=== PATIENT | female | born 1970 | race Caucasian/White ===

== ENCOUNTER 2021-07-01 06:41 | Emergency (ER) | payer BC, OTHER ==
[2021-07-01] MEDS ORDERED: Sodium Chloride 0.9% 10 ML Syringe FLUSH PRN (06:53)
[2021-07-01] MEDS ORDERED: Sodium Chloride 0.9% 1,000 ML IV ONE (07:24)
--- NOTE | 2021-07-01 07:42 | EDM.PDOC ---
ED HPI GENERAL MEDICAL PROBLEM - General Chief Complaint: General Stated Complaint: HEART PALPITATIONS Time Seen by Provider: 07/01/21 07:16 Source of Information: Reports: Patient History Limitations: Reports: No Limitations - History of Present Illness INITIAL COMMENTS - FREE TEXT/NARRATIVE: Patient presents with rapid heart rate. She can't describe well what her symptoms are but says it makes her feel tense; she felt this along with sweating from her head about 0500 this morning. She has had 3 episodes of this starting with her first one in February. She was told it was a "flutter", they started her on Eliquis after a PETEY to ruleout clots. She is taking Eliquis since then. She denies any pain in chest, jaw, neck, shoulder, arms. She denies any history of [place]. She takes Losartan qhs and metoprolol 50 mg bid. She did already have the morning dose of metoprolol; and took both last night as directed. Treatments [employer]: Reports: Other Medication(s) - Related Data Allergies Allergy/AdvReac Type Severity Reaction Status Date / Time lisinopril Allergy Cough Verified 07/01/21 06:50 morphine Allergy Nausea and Verified 07/01/21 06:50 Vomiting Home Meds: Home Meds Aspirin [Halfprin] 1 tab PO DAILY 07/03/16 [History] Omeprazole 40 mg PO ACBREAKFAST 07/03/16 [History] metFORMIN [Glucophage XR] 1,000 mg PO BIDMEALS 07/03/16 [History] Acetaminophen 500 mg PO Q6H PRN 07/01/21 [History] Apixaban [Eliquis] 5 mg PO BID 07/01/21 [History] Beta-Carotene(A) w/C & E/Min [Prosight] 1 tab PO DAILY 07/01/21 [History] Cyanocobalamin (Vitamin B12) [Vitamin B13] 500 mcg PO DAILY 07/01/21 [History] Fenofibrate 160 mg PO BEDTIME 07/01/21 [History] Insulin Aspart [NovoLOG] 15 unit SQ TIDMEALS 07/01/21 [History] Losartan Potassium 25 mg PO BEDTIME 07/01/21 [History] Metoprolol Tartrate 50 mg PO BID 07/01/21 [History] Multivitamin [Multiple Vitamins] 1 each PO DAILY 07/01/21 [History] Rosuvastatin Calcium 40 mg PO DAILY 07/01/21 [History] Past Medical History HEENT History: Reports: Impaired Vision Gastrointestinal History: Reports: GERD Genitourinary History: Reports: UTI, Recurrent Musculoskeletal History: Reports: Back Pain, Chronic Neurological History: Reports: Migraines Endocrine/Metabolic History: Reports: Diabetes, Type II - Infectious Disease History Infectious Disease History: Reports: Chicken Pox - Past Surgical History HEENT Surgical History: Reports: Adenoidectomy, Eye Surgery, Oral Surgery, Tons illectomy Female Surgical History: Reports: Other (See Below) ED ROS GENERAL - Review of Systems Review Of Systems: See Below Constitutional: Reports: Fatigue. Denies: Fever, Chills, Malaise, Weakness HEENT: Denies: Ear Pain, Throat Pain, Vision Change Respiratory: Denies: Shortness of Breath, Cough, Hemoptysis Cardiovascular: Denies: Lightheadedness, Syncope GI/Abdominal: Denies: Abdominal Pain, Nausea, Vomiting : Denies: Dysuria, Flank Pain Musculoskeletal: Denies: Neck Pain, Shoulder Pain, Arm Pain, Back Pain, Hand Pain Skin: Reports: Diaphoresis (see HPI). Denies: Cyanosis, Jaundice, Mottled, Pallor Neurological: Denies: Confusion, Dizziness, Headache, Seizure, Syncope, Trouble Speaking, Difficulty Walking Psychiatric: Denies: Agitation, Anxiety, Confusion Hematologic/Lymphatic: Reports: Easy Bleeding (Eliquis) ED EXAM, GENERAL - Physical Exam Exam: See Below Exam Limited By: No Limitations General Appearance: Alert, WD/WN, No Apparent Distress Eye Exam: Bilateral Eye: EOMI, Normal Inspection, PERRL Ears: Normal External Exam, Hearing Grossly Normal Nose: Normal Inspection, No Blood Throat/Mouth: Normal Inspection, Normal Lips, Normal Voice, No Airway Compromise Head: Atraumatic, Normocephalic Neck: Normal Inspection, Full Range of Motion Respiratory/Chest: No Respiratory Distress, Lungs Clear, Normal Breath Sounds Cardiovascular: Normal Peripheral Pulses, No Edema, No Murmur, Tachycardia, Irregularly Irregular GI/Abdominal: Normal Bowel Sounds, Soft, Non-Tender, No Organomegaly, No Distention Back Exam: Normal Inspection, Full Range of Motion. No: CVA Tenderness (L), CVA Tenderness (R) Extremities: Normal Inspection, Normal Range of Motion, Non-Tender, No Pedal Edema Neurological: Alert, Oriented, Normal Cognition, No Motor/Sensory Deficits Psychiatric: Normal Affect, Normal Mood Skin Exam: Warm, Dry, Intact, Normal Color, No Rash #1 Interpretation EKG Date: 07/01/21 Rhythm: A-Fib Rate (Beats/Min): 152 P-Wave: Absent QRS: Normal ST-T: Normal QT: Normal #2 Interpretation EKG Date: 07/01/21 Rhythm: NSR [place]: Normal P-Wave: Present QRS: Normal ST-T: Normal QT: Normal Course - Vital Signs Last Recorded V/S: Last Vital Signs Temp 96.2 F L 07/01/21 06:43 Pulse 90 07/01/21 10:45 Resp 21 H 07/01/21 10:45 BP 95/54 L 07/01/21 10:45 Pulse Ox 96 07/01/21 10:45 - Orders/Labs/Meds Orders: Active Orders 24 hr Category Date Time Status Peripheral IV Care [RC] . DIRECTED Care 07/01/21 06:53 Active Sodium Chloride 0.9% [Saline Flush] Med 07/01/21 06:53 Active 10 ml FLUSH Q8HR PRN Peripheral IV Insertion Adult [OM.PC] Routine Oth 07/01/21 06:53 Ordered EKG 12 Lead [EK] Stat Ther 07/01/21 06:53 Ordered EKG 12 Lead [EK] Stat Ther 07/01/21 08:44 Ordered Medication Orders Sodium Chloride (Sodium Chloride 0.9% 10 Ml Syringe) 10 ml FLUSH Q8HR PRN PRN Reason: keep vein open Labs: Laboratory Tests 07/01/21 07/01/21 07/01/21 Range/Units 07:10 07:10 10:10 WBC 7.78 (5.00-10.00) 10^3/uL RBC 4.95 (3.80-5.50) 10^6/uL Hgb 12.8 (12.0-16.0) g/dL Hct 40.2 (37.0-47.0) % MCV 81.2 L (82.0-92.0) fL MCH 25.9 L (27.0-31.0) pg MCHC 31.8 L (32.0-36.0) g/dL RDW 14.6 H (11.5-14.5) % Plt Count 368 (150-400) 10^3/uL MPV 9.5 (7.4-10.4) fL Immature Gran % (Auto) 0.4 (0.0-5.0) % Neut % (Auto) 74.3 H (50.0-70.0) % Lymph % (Auto) 18.1 L (20.0-40.0) % [place] % (Auto) 6.6 (2.0-8.0) % Eos % (Auto) 0.3 L (1.0-3.0) % Baso % (Auto) 0.3 (0.0-1.0) % Neut # (Auto) 5.79 (2.50-7.00) 10^3/uL Lymph # (Auto) 1.41 (1.00-4.00) 10^3/uL [place] # (Auto) 0.51 (0.10-0.80) 10^3/uL Eos # (Auto) 0.02 L (0.10-0.30) 10^3/uL Baso # (Auto) 0.02 (0.00-0.10) 10^3/uL Immature Gran # (Auto) 0.03 (0.00-0.50) 10^3/uL Sodium 139 (136-145) mmol/L Potassium 3.9 (3.5-5.1) mmol/L Chloride 103 (98-107) mmol/L Carbon Dioxide 20.8 L (21.0-32.0) mmol/L Anion Gap 19.1 H (5-15) mmol/L BUN 19 H (7-18) mg/dL Creatinine 0.47 L (0.51-1.17) mg/dL Est Cr Clr Drug Dosing 119.71 mL/min Estimated GFR (MDRD) > 60 mL/min Glucose 236 H (70-140) mg/dL Calcium 8.5 L (8.7-10.3) mg/dL Total Bilirubin 0.4 (0.2-1.0) mg/dL AST 12 L (15-37) U/L ALT 25 (14-63) U/L Alkaline Phosphatase 43 L (46-116) U/L Troponin I High Sens 30.600 36.600 (0-51.000) pg/mL Total Protein 7.3 (6.4-8.2) g/dL Albumin 3.95 (3.40-5.00) g/dL Meds: Medications Generic Name Dose Route Start Last Admin Trade Name Freq PRN Reason Stop Dose Admin Sodium Chloride 10 ml 07/01/21 06:53 Sodium Chloride 0.9% 10 Ml Syringe FLUSH Q8HR PRN keep vein open Discontinued Medications Generic Name Dose Route Start Last Admin Trade Name Freq PRN Reason Stop Dose Admin Diltiazem HCl 5 mg 07/01/21 08:08 07/01/21 08:23 Diltiazem 25 Mg/5 Ml Sdv IVPUSH 07/01/21 08:09 5 mg ONETIME ONE Administration Sodium Chloride 1,000 mls @ 999 mls/hr 07/01/21 07:24 07/01/21 07:30 Normal Saline IV 07/01/21 08:24 999 mls/hr .BOLUS ONE Administration - Re-Assessments/Exams Free Text/Narrative Re-Assessment/Exam: 07/01/21 08:10 Labs okay. Troponin is 30 which could be on its way up. With BP 82/59 we've been giving IV fluids. She is already on metoprolol so will try a low dose of diltiazem for rate control now. 07/01/21 08:34 Diltiazem 5 mg IVP slowed rate down to 90 from 150's. Blood pressure actually improved to 96/51. Patient feels better too. 07/01/21 08:58 I discussed case with her PCP, Dr. Muro at [facility]. She hasn't seen her since March 2020, before these A Fib/RVR episodes began so recommends following with her cardiology recommendations since she has been seen by them more recently. I discussed findings and recommendations with patient. Cardiology has been suspicious that sleep apnea may be causing these episodes and have her scheduled for a sleep apnea study in August. Patient will call them to see if they can move that up or have any other recommendations for her. Today will monitor and recheck trop before discharge. 07/01/21 11:05 It looks like there is the option of doing a sleep study here in [place] so she will look into getting it done NASIR. Second troponin is 36, basically unchanged. Patient is stable and feeling well. Discharged to home in stable condition. Departure - Departure Time of Disposition: 11:02 Disposition: Home, Self-Care 01 Condition: Good Clinical Impression: Paroxysmal atrial fibrillation with rapid ventricular response - Discharge Information Instructions: Atrial Fibrillation, Kldy-js-Auwl Referrals: Jayde Beltrán MD [Primary Care Provider] - Forms: ED Department Discharge Additional Instructions: Drink 8 cups of water daily. Continue your medications as directed. Call your bottle machine operator to discuss this episode and possibility of doing sleep study sooner here in [place]. Follow up with cardiology as they advise. Return to ER as needed. Sepsis Event Note (ED) - Evaluation Sepsis Screening Result: No Definite Risk - Focused Exam Vital Signs: Vital Signs Temp Pulse Resp BP Pulse Ox 07/01/21 10:45 90 21 H 95/54 L 96 07/01/21 10:30 92 25 H 99/56 L 96 07/01/21 10:15 95 16 106/62 96 07/01/21 10:00 90 21 H 99/51 L 96 07/01/21 09:45 92 22 H 101/53 L 95 07/01/21 09:30 91 24 H 95/56 L 96 07/01/21 09:15 92 25 H 101/55 L 96 07/01/21 09:00 91 22 H 91/48 L 95 07/01/21 08:45 89 16 93/53 L 98 07/01/21 08:30 90 20 96/51 L 97 07/01/21 08:28 91 17 95/56 L 98 07/01/21 08:15 134 H 21 H 83/50 L 98 07/01/21 08:00 142 H 13 82/59 L 98 07/01/21 07:45 149 H 24 H 87/52 L 98 07/01/21 07:30 155 H 17 98/70 97 07/01/21 07:15 160 H 21 H 83/63 L 97 07/01/21 07:00 173 H 17 110/58 L 98 07/01/21 06:48 163 H 24 H 90/58 L 99 07/01/21 06:46 156 H 20 78/51 L 99 07/01/21 06:43 96.2 F L 168 H 16 107/56 L 99 - My Orders Last 24 Hours: My Active Orders 07/01/21 06:53 Peripheral IV Care [RC] . DIRECTED Sodium Chloride 0.9% [Saline Flush] 10 ml FLUSH Q8HR PRN Peripheral IV Insertion Adult [OM.PC] Routine EKG 12 Lead [EK] Stat 07/01/21 08:44 EKG 12 Lead [EK] Stat - Assessment/Plan Last 24 Hours: My Active Orders 07/01/21 06:53 Peripheral IV Care [RC] . DIRECTED Sodium Chloride 0.9% [Saline Flush] 10 ml FLUSH Q8HR PRN Peripheral IV Insertion Adult [OM.PC] Routine EKG 12 Lead [EK] Stat 07/01/21 08:44 EKG 12 Lead [EK] Stat
[2021-07-01 07:50] LABS: ANION GAP 19.1 mmol/L (5-15); CHLORIDE,CL 103 mmol/L (98-107); SODIUM,NA 139 mmol/L (136-145)
[2021-07-01] MEDS ORDERED: Diltiazem 25 MG/5 ML SDV IVPUSH ONE (08:08)
[2021-07-01 10:50] VITALS: BP 95/54; PULSE 90
== END 2021-07-01 11:05 | disposition home or self-care (01) ==
LOC: KA.ED 06:41
DX: I48.0 Paroxysmal atrial fibrillation (principal); K21.9 Gastro-esophageal reflux disease without esophagitis; E11.9 Type 2 diabetes mellitus without complications; Z88.5 Allergy status to narcotic agent; Z79.899 Other long term (current) drug therapy; Z79.4 Long term (current) use of insulin; Z79.82 Long term (current) use of aspirin; Z88.8 Allergy status to other drugs, medicaments and biological substances
CPT/HCPCS: 36415; 80053; 84484; 85025; 93005; 96374; 99285; J3490; J7030; 99284

== ENCOUNTER 2021-08-18 15:31 | Inpatient (IN) | payer BC ==
[2021-08-18] MEDS ORDERED: Sodium Chloride 0.9% 10 ML Syringe FLUSH PRN ×2 (15:45→17:42)
[2021-08-18] MEDS ORDERED: Diltiazem 25 MG/5 ML SDV IVPUSH ONE (15:51)
--- NOTE | 2021-08-18 15:58 | EDM.PDOC ---
ED HPI GENERAL MEDICAL PROBLEM - General Chief Complaint: Cardiovascular Problem Stated Complaint: RAPID HEART RATE Time Seen by Provider: 08/18/21 15:40 Source of Information: Reports: Patient History Limitations: Reports: No Limitations - History of Present Illness INITIAL COMMENTS - FREE TEXT/NARRATIVE: 50 YO WF PRESENTS TO ER COMPLAINING OF RAPID HEART RATE WITH DIZZINESS AND DIAPHORESIS WHICH STARTED AFTER WAKING FROM HER NAP THIS AFTERNOON. PT REPORTS HISTORY OF PAROXYSMAL ATRIAL FIBRILLATION AND STATES SHE HAS BEEN SEEN BY CARIOLOGY WHO IS WORKING HER UP FOR SLEEP APNEA AT THIS TIME. PT TAKE METOPROLOL 50MG BID AND STATES SHE HAS BEEN COMPLIANT WITH HER HOME MEDICATIONS. Onset: Sudden Location: Reports: Chest Severity: Moderate Improves with: Reports: None Worsens with: Reports: None Associated Symptoms: Reports: Chest Pain, Diaphoresis, Shortness of Breath - Related Data Allergies Allergy/AdvReac Type Severity Reaction Status Date / Time lisinopril Allergy Cough Verified 07/01/21 06:50 morphine Allergy Nausea and Verified 07/01/21 06:50 Vomiting Home Meds: Home Meds RX: Aspirin [Halfprin] 1 tab PO DAILY 07/03/16 [History] RX: Omeprazole 40 mg PO ACBREAKFAST 07/03/16 [History] metFORMIN [Glucophage XR] 1,000 mg PO BIDMEALS 07/03/16 [History] Apixaban [Eliquis] 5 mg PO BID 07/01/21 [History] Beta-Carotene(A) w/C & E/Min [Prosight] 1 tab PO DAILY 07/01/21 [History] Cyanocobalamin (Vitamin B12) [Vitamin B13] 500 mcg PO DAILY 07/01/21 [History] Insulin Aspart [NovoLOG] 15 unit SQ TIDMEALS 07/01/21 [History] Multivitamin [Multiple Vitamins] 1 each PO DAILY 07/01/21 [History] RX: Acetaminophen 500 mg PO Q6H PRN 07/01/21 [History] RX: Fenofibrate 160 mg PO BEDTIME 07/01/21 [History] RX: Losartan Potassium 25 mg PO BEDTIME 07/01/21 [History] RX: Metoprolol Tartrate 50 mg PO BID 07/01/21 [History] RX: Rosuvastatin Calcium 40 mg PO DAILY 07/01/21 [History] Insulin Glargine,Hum.Rec.Anlog [Basaglar Kwikpen U-100] 45 unit SQ BEDTIME 08/18/21 [History] Past Medical History HEENT History: Reports: Impaired Vision Cardiovascular History: Reports: Afib, High Cholesterol, Hypertension Respiratory History: Reports: None Gastrointestinal History: Reports: GERD, Pancreatitis Genitourinary History: Reports: Urinary Incontinence, UTI, Recurrent Musculoskeletal History: Reports: Back Pain, Chronic, Fracture Neurological History: Reports: Migraines Endocrine/Metabolic History: Reports: Diabetes, Type II, Obesity/BMI 30+ Hematologic History: Reports: Anemia, Blood Transfusion(s) Immunologic History: Reports: None Oncologic (Cancer) History: Reports: None Dermatologic History: Reports: None - Infectious Disease History Infectious Disease History: Reports: Chicken Pox - Past Surgical History HEENT Surgical History: Reports: Adenoidectomy, Eye Surgery, Oral Surgery, Tonsillectomy Female Surgical History: Reports: Other (See Below) Social & Family History - Family History Family Medical History: No Pertinent Family History - Caffeine Use Caffeine Use: Reports: Soda, Tea ED ROS GENERAL - Review of Systems Review Of Systems: See Below Constitutional: Reports: No Symptoms HEENT: Reports: No Symptoms Respiratory: Reports: Shortness of Breath Cardiovascular: Reports: Lightheadedness, Palpitations Endocrine: Reports: No Symptoms GI/Abdominal: Reports: No Symptoms : Reports: No Symptoms Musculoskeletal: Reports: No Symptoms Skin: Reports: No Symptoms Neurological: Reports: No Symptoms Psychiatric: Reports: No Symptoms Hematologic/Lymphatic: Reports: No Symptoms Immunologic: Reports: No Symptoms ED EXAM, GENERAL - Physical Exam Exam: See Below Exam Limited By: No Limitations General Appearance: Alert, WD/WN, No Apparent Distress Eye Exam: Bilateral Eye: PERRL Head: Atraumatic, Normocephalic Neck: Normal Inspection, Supple, Non-Tender, Full Range of Motion Respiratory/Chest: No Respiratory Distress, Lungs Clear, Normal Breath Sounds, No Accessory Muscle Use, Chest Non-Tender Cardiovascular: Normal Peripheral Pulses, No Edema, No Gallop, No JVD, No Rub, Tachycardia, Irregularly Irregular GI/Abdominal: Normal Bowel Sounds, Soft, Non-Tender, No Organomegaly, No Distention, No Abnormal Bruit, No Mass Back Exam: Normal Inspection, Full Range of Motion, NT Extremities: Normal Inspection, Normal Range of Motion, Non-Tender, Normal Capillary Refill, No Pedal Edema Neurological: Alert, Oriented, CN II-XII Intact, Normal Cognition, Normal Gait, Normal Reflexes, No Motor/Sensory Deficits Psychiatric: Normal Affect, Normal Mood Skin Exam: Warm, Dry, Intact, Normal Color, No Rash Lymphatic: No Adenopathy #1 Interpretation EKG Date: 08/18/21 Time: 15:39 Rhythm: A-Fib Rate (Beats/Min): 157 [place]: Normal P-Wave: Absent QRS: Normal ST-T: Normal QT: Normal Course - Vital Signs Last Recorded V/S: Last Vital Signs Temp 96.5 F L 08/18/21 15:40 Pulse 144 H 08/18/21 17:25 Resp 24 H 08/18/21 17:25 BP 122/70 08/18/21 17:25 Pulse Ox 96 08/18/21 17:25 - Orders/Labs/Meds Orders: Active Orders 24 hr Category Date Time Status Patient Status Manage Transfer [TRANSFER] Routine ADT 08/18/21 17:40 Active Patient Status [ADT] Routine ADT 08/18/21 17:42 Active Accu Check [Blood Glucose Check, Bedside] [RC] Care 08/18/21 17:46 Active WITHMEALSANDBED Cardiac Monitoring [RC] . DIRECTED Care 08/18/21 15:47 Active Cardiac Monitoring [RC] CONTINUOUS Care 08/18/21 17:43 Active EKG Documentation Completion [RC] ASDIRECTED Care 08/18/21 15:59 Active Oxygen Therapy [RC] PRN Care 08/18/21 17:42 Active Peripheral IV Care [RC] . DIRECTED Care 08/18/21 15:46 Active Peripheral IV Care [RC] . DIRECTED Care 08/18/21 17:45 Active Up With Assistance [RC] ASDIRECTED Care 08/18/21 17:42 Active VTE/DVT Education [RC] PER UNIT ROUTINE Care 08/18/21 17:42 Active Vital Signs [RC] Q4H Care 08/18/21 17:42 Active Heart Healthy Diet [DIET] Diet 08/18/21 Dinner Active BASIC METABOLIC PANEL,BMP [CHEM] AM Lab 08/19/21 05:11 Ordered CBC WITH AUTO DIFF [HEME] AM Lab 08/19/21 05:11 Ordered CORONAVIRUS COVID-19 RAPID [MOLEC] Stat Lab 08/18/21 17:39 Ordered MAGNESIUM [CHEM] AM Lab 08/19/21 05:11 Ordered Apixaban [Eliquis] Med 08/18/21 21:00 Active 5 mg PO BID Aspirin [Halfprin] Med 08/19/21 09:00 Active 81 mg PO DAILY Beta-Carotene(A) w/C & E/Min [Prosight] Med 08/19/21 09:00 Active 1 tab PO DAILY Cyanocobalamin (Vitamin B12) [Vitamin B12] Med 08/19/21 09:00 Active 500 mcg PO DAILY Dextrose 50% in Water Med 08/18/21 17:47 Active 50 ml IVPUSH ASDIRECTED PRN Diltiazem 125 mg Med 08/18/21 16:15 Active Sodium Chloride 0.9% [Normal Saline] 100 ml IV TITRATE Fenofibrate [Fenofibrate] Med 08/18/21 21:00 Active 160 mg PO BEDTIME Glucagon,Human Recombinant [GlucaGen] Med 08/18/21 17:47 Active 1 mg IM ASDIRECTED PRN Insulin Aspart [NovoLOG] Med 08/18/21 18:00 Active 15 unit SUBCUT TIDMEALS Insulin Glargine,Hum.Rec.Anlog [Semglee Pen] Med 08/18/21 21:00 Ordered 45 unit SUBCUT BEDTIME Multivitamin [Multiple Vitamins] Med 08/19/21 09:00 Active 1 each PO DAILY Omeprazole [Omeprazole] Med 08/19/21 07:30 Active 40 mg PO ACBREAKFAST Rosuvastatin Calcium [Rosuvastatin Calcium] Med 08/19/21 09:00 Active 40 mg PO DAILY Sodium Chloride 0.9% [Normal Saline] 1,000 ml Med 08/18/21 17:45 Active IV ASDIRECTED Sodium Chloride 0.9% [Saline Flush] Med 08/18/21 15:45 Active 10 ml FLUSH Q8HR PRN Sodium Chloride 0.9% [Saline Flush] Med 08/18/21 17:42 Active 10 ml FLUSH Q8HR PRN metFORMIN [Glucophage XR] Med 08/18/21 18:00 Active 1,000 mg PO BIDMEALS Peripheral IV Insertion Adult [OM.PC] Routine Oth 08/18/21 15:45 Ordered Peripheral IV Insertion Adult [OM.PC] Routine Oth 08/18/21 17:42 Ordered Resuscitation Status Routine Resus Stat 08/18/21 17:42 Ordered EKG 12 Lead [EK] Stat Ther 08/18/21 15:45 Ordered EKG 12 Lead [EK] Stat Ther 08/18/21 15:59 Ordered Medication Orders Apixaban (Apixaban 5 Mg Tab) 5 mg PO BID [facility] Aspirin (Aspirin 81 Mg Tab.Ec) 81 mg PO DAILY [facility] Cyanocobalamin (Cyanocobalamin (Vitamin B12) 500 Mcg Tab) 500 mcg PO DAILY [facility] Dextrose/Water (50% Dextrose In Water 50 Ml Syringe) 50 ml IVPUSH ASDIRECTED PRN PRN Reason: Hypoglycemia Glucagon (Glucagon,Human Recombinant 1 Mg Vial) 1 mg IM ASDIRECTED PRN PRN Reason: Hypoglycemia Diltiazem HCl 125 mg/ Sodium (Chloride) 125 mls @ 15 mls/hr IV TITRATE [facility] Last Admin: 08/18/21 16:25 Dose: 15 mg/hr, 15 mls/hr Documented by: ANIBAL Sodium Chloride (Normal Saline) 1,000 mls @ 125 mls/hr IV ASDIRECTED [facility] Insulin Aspart (Insulin Aspart 100 Units/Ml 3 Ml Pen) 15 unit SUBCUT TIDMEALS [facility] Insulin Glargine (Insulin Glargine,Hum.Rec.Anlog 100 Unit/Ml 3 Ml Pen) 45 unit SUBCUT BEDTIME [facility] Metformin HCl (Metformin 500 Mg Tab.Er) 1,000 mg PO BIDMEALS [facility] Non-Formulary Medication (Beta-Carotene(A) W/C & E/Min [Prosight]) 1 tab PO DAILY [facility] Non-Formulary Medication (Fenofibrate [Fenofibrate]) 160 mg PO BEDTIME [facility] Non-Formulary Medication (Multivitamin [Multiple Vitamins]) 1 each PO DAILY [facility] Non-Formulary Medication (Omeprazole [Omeprazole]) 40 mg PO ACBREAKFAST [facility] Non-Formulary Medication (Rosuvastatin Calcium [Rosuvastatin Calcium]) 40 mg PO DAILY [facility] Sodium Chloride (Sodium Chloride 0.9% 10 Ml Syringe) 10 ml FLUSH Q8HR PRN PRN Reason: keep vein open Sodium Chloride (Sodium Chloride 0.9% 10 Ml Syringe) 10 ml FLUSH Q8HR PRN PRN Reason: keep vein open Labs: Laboratory Tests 08/18/21 08/18/21 Range/Units 15:50 15:50 WBC 6.61 (5.00-10.00) 10^3/uL RBC 5.08 (3.80-5.50) 10^6/uL Hgb 12.6 (12.0-16.0) g/dL Hct 39.9 (37.0-47.0) % MCV 78.5 L (82.0-92.0) fL MCH 24.8 L (27.0-31.0) pg MCHC 31.6 L (32.0-36.0) g/dL RDW 15.3 H (11.5-14.5) % Plt Count 331 (150-400) 10^3/uL MPV 9.4 (7.4-10.4) fL Immature Gran % (Auto) 0.2 (0.0-5.0) % Neut % (Auto) 64.9 (50.0-70.0) % Lymph % (Auto) 26.2 (20.0-40.0) % [place] % (Auto) 7.6 (2.0-8.0) % Eos % (Auto) 0.6 L (1.0-3.0) % Baso % (Auto) 0.5 (0.0-1.0) % Neut # (Auto) 4.30 (2.50-7.00) 10^3/uL Lymph # (Auto) 1.73 (1.00-4.00) 10^3/uL [place] # (Auto) 0.50 (0.10-0.80) 10^3/uL Eos # (Auto) 0.04 L (0.10-0.30) 10^3/uL Baso # (Auto) 0.03 (0.00-0.10) 10^3/uL Immature Gran # (Auto) 0.01 (0.00-0.50) 10^3/uL Sodium 141 (136-145) mmol/L Potassium 4.4 (3.5-5.1) mmol/L Chloride 102 (98-107) mmol/L Carbon Dioxide 23.5 (21.0-32.0) mmol/L Anion Gap 19.9 H (5-15) mmol/L BUN 17 (7-18) mg/dL Creatinine 0.46 L (0.51-1.17) mg/dL Est Cr Clr Drug Dosing 122.31 mL/min Estimated GFR (MDRD) > 60 mL/min Glucose 208 H (70-140) mg/dL Calcium 10.3 D (8.7-10.3) mg/dL Total Bilirubin 0.3 (0.2-1.0) mg/dL AST 18 (15-37) U/L ALT 29 (14-63) U/L Alkaline Phosphatase 50 (46-116) U/L Troponin I High Sens 14.300 (0-51.000) pg/mL B-Natriuretic Peptide 92 (0-100) pg/mL Total Protein 8.1 (6.4-8.2) g/dL Albumin 4.26 (3.40-5.00) g/dL Meds: Medications Generic Name Dose Route Start Last Admin Trade Name Freq PRN Reason Stop Dose Admin Apixaban 5 mg 08/18/21 21:00 Apixaban 5 Mg Tab PO BID [facility] Aspirin 81 mg 08/19/21 09:00 Aspirin 81 Mg Tab.Ec PO DAILY [facility] Cyanocobalamin 500 mcg 08/19/21 09:00 Cyanocobalamin (Vitamin B12) 500 Mcg Tab PO DAILY [facility] Dextrose/Water 50 ml 08/18/21 17:47 50% Dextrose In Water 50 Ml Syringe IVPUSH ASDIRECTED PRN Hypoglycemia Glucagon 1 mg 08/18/21 17:47 Glucagon,Human Recombinant 1 Mg Vial IM ASDIRECTED PRN Hypoglycemia Diltiazem HCl 125 mg/ Sodium 125 mls @ 15 mls/hr 08/18/21 16:15 08/18/21 16:25 Chloride IV 15 mg/hr TITRATE [facility] 15 mls/hr Administration 15 MG/HR Sodium Chloride 1,000 mls @ 125 mls/hr 08/18/21 17:45 Normal Saline IV ASDIRECTED [facility] Insulin Aspart 15 unit 08/18/21 18:00 Insulin Aspart 100 Units/Ml 3 Ml Pen SUBCUT TIDMEALS [facility] Insulin Glargine 45 unit 08/18/21 21:00 Insulin Glargine,Hum.Rec.Anlog 100 Unit/Ml 3 Ml Pen SUBCUT BEDTIME [facility] Metformin HCl 1,000 mg 08/18/21 18:00 Metformin 500 Mg Tab.Er PO BIDMEALS [facility] Non-Formulary Medication 1 tab 08/19/21 09:00 Beta-Carotene(A) W/C & E/Min [Prosight] PO DAILY [facility] Non-Formulary Medication 160 mg 08/18/21 21:00 Fenofibrate [Fenofibrate] PO BEDTIME [facility] Non-Formulary Medication 1 each 08/19/21 09:00 Multivitamin [Multiple Vitamins] PO DAILY [facility] Non-Formulary Medication 40 mg 08/19/21 07:30 Omeprazole [Omeprazole] PO ACBREAKFAST [facility] Non-Formulary Medication 40 mg 08/19/21 09:00 Rosuvastatin Calcium [Rosuvastatin Calcium] PO DAILY [facility] Sodium Chloride 10 ml 08/18/21 15:45 Sodium Chloride 0.9% 10 Ml Syringe FLUSH Q8HR PRN keep vein open Sodium Chloride 10 ml 08/18/21 17:42 Sodium Chloride 0.9% 10 Ml Syringe FLUSH Q8HR PRN keep vein open Discontinued Medications Generic Name Dose Route Start Last Admin Trade Name Freq PRN Reason Stop Dose Admin Diltiazem HCl 15 mg 08/18/21 15:51 08/18/21 16:00 Diltiazem 25 Mg/5 Ml Sdv IVPUSH 08/18/21 15:52 15 mg ONETIME ONE Administration Sodium Chloride Confirm 08/18/21 16:21 08/18/21 17:29 Normal Saline Administered 08/18/21 16:22 Not Given Dose 100 mls @ as directed .ROUTE .STK-MED ONE Sodium Chloride 1,000 mls @ 999 mls/hr 08/18/21 16:51 08/18/21 17:02 Normal Saline IV 08/18/21 17:51 999 mls/hr .BOLUS ONE Administration Lorazepam 1 mg 08/18/21 16:33 08/18/21 16:41 Lorazepam 2 Mg/Ml Sdv IVPUSH 08/18/21 16:34 1 mg ONETIME ONE Administration - Radiology Interpretation Free Text/Narrative:: CXR- NO ACUTE PROCESS - Re-Assessments/Exams Free Text/Narrative Re-Assessment/Exam: 08/18/21 17:37 PT REPORTS FELLING BETTER- NO DIAPHORESIS, NO SHORTNESS OF BREATH. PT WILL BE ADMITTED FOR RATE CONTROL AND SUPPORTIVE CARE Departure - Departure Time of Disposition: 17:37 Disposition: Admitted As Inpatient 65 Condition: Fair Clinical Impression: Atrial fibrillation with rapid ventricular response Referrals: Jayde Beltrán MD [Primary Care Provider] - Forms: ED Department Discharge Sepsis Event Note (ED) - Focused Exam Vital Signs: Vital Signs Temp Pulse Resp BP Pulse Ox 08/18/21 17:25 144 H 24 H 122/70 96 08/18/21 17:00 150 H 21 H 106/70 97 08/18/21 16:45 154 H 19 98/76 96 08/18/21 16:30 155 H 20 117/45 L 96 08/18/21 16:15 139 H 18 122/87 96 08/18/21 16:05 112 H 20 113/68 97 08/18/21 16:00 169 H 13 159/82 H 97 08/18/21 15:45 171 H 22 H 162/77 H 96 08/18/21 15:40 96.5 F L 164 H 20 141/72 H 97 - My Orders Last 24 Hours: My Active Orders 08/18/21 15:45 Sodium Chloride 0.9% [Saline Flush] 10 ml FLUSH Q8HR PRN Peripheral IV Insertion Adult [OM.PC] Routine EKG 12 Lead [EK] Stat 08/18/21 15:46 Peripheral IV Care [RC] . DIRECTED 08/18/21 15:47 Cardiac Monitoring [RC] . DIRECTED 08/18/21 15:59 EKG Documentation Completion [RC] ASDIRECTED EKG 12 Lead [EK] Stat 08/18/21 16:15 Diltiazem 125 mg Sodium Chloride 0.9% [Normal Saline] 100 ml IV TITRATE 08/18/21 17:39 CORONAVIRUS COVID-19 RAPID [MOLEC] Stat 08/18/21 17:40 Patient Status Manage Transfer [TRANSFER] Routine 08/18/21 17:42 Patient Status [ADT] Routine Oxygen Therapy [RC] PRN Up With Assistance [RC] ASDIRECTED VTE/DVT Education [RC] PER UNIT ROUTINE Vital Signs [RC] Q4H Sodium Chloride 0.9% [Saline Flush] 10 ml FLUSH Q8HR PRN Peripheral IV Insertion Adult [OM.PC] Routine Resuscitation Status Routine 08/18/21 17:43 Cardiac Monitoring [RC] CONTINUOUS 08/18/21 17:45 Peripheral IV Care [RC] . DIRECTED Sodium Chloride 0.9% [Normal Saline] 1,000 ml IV ASDIRECTED 08/18/21 17:46 Accu Check [Blood Glucose Check, Bedside] [RC] WITHMEALSANDBED 08/18/21 17:47 Dextrose 50% in Water 50 ml IVPUSH ASDIRECTED PRN Glucagon,Human Recombinant [GlucaGen] 1 mg IM ASDIRECTED PRN 08/18/21 Dinner Heart Healthy Diet [DIET] Insulin Aspart [NovoLOG] 15 unit SUBCUT TIDMEALS metFORMIN [Glucophage XR] 1,000 mg PO BIDMEALS 08/18/21 21:00 Apixaban [Eliquis] 5 mg PO BID Fenofibrate [Fenofibrate] 160 mg PO BEDTIME Insulin Glargine,Hum.Rec.Anlog [Semglee Pen] 45 unit SUBCUT BEDTIME 08/19/21 05:11 BASIC METABOLIC PANEL,BMP [CHEM] AM CBC WITH AUTO DIFF [HEME] AM MAGNESIUM [CHEM] AM 08/19/21 07:30 Omeprazole [Omeprazole] 40 mg PO ACBREAKFAST 08/19/21 09:00 Aspirin [Halfprin] 81 mg PO DAILY Beta-Carotene(A) w/C & E/Min [Prosight] 1 tab PO DAILY Cyanocobalamin (Vitamin B12) [Vitamin B12] 500 mcg PO DAILY Multivitamin [Multiple Vitamins] 1 each PO DAILY Rosuvastatin Calcium [Rosuvastatin Calcium] 40 mg PO DAILY - Assessment/Plan Last 24 Hours: My Active Orders 08/18/21 15:45 Sodium Chloride 0.9% [Saline Flush] 10 ml FLUSH Q8HR PRN Peripheral IV Insertion Adult [OM.PC] Routine EKG 12 Lead [EK] Stat 08/18/21 15:46 Peripheral IV Care [RC] . DIRECTED 08/18/21 15:47 Cardiac Monitoring [RC] . DIRECTED 08/18/21 15:59 EKG Documentation Completion [RC] ASDIRECTED EKG 12 Lead [EK] Stat 08/18/21 16:15 Diltiazem 125 mg Sodium Chloride 0.9% [Normal Saline] 100 ml IV TITRATE 08/18/21 17:39 CORONAVIRUS COVID-19 RAPID [MOLEC] Stat 08/18/21 17:40 Patient Status Manage Transfer [TRANSFER] Routine 08/18/21 17:42 Patient Status [ADT] Routine Oxygen Therapy [RC] PRN Up With Assistance [RC] ASDIRECTED VTE/DVT Education [RC] PER UNIT ROUTINE Vital Signs [RC] Q4H Sodium Chloride 0.9% [Saline Flush] 10 ml FLUSH Q8HR PRN Peripheral IV Insertion Adult [OM.PC] Routine Resuscitation Status Routine 08/18/21 17:43 Cardiac Monitoring [RC] CONTINUOUS 08/18/21 17:45 Peripheral IV Care [RC] . DIRECTED Sodium Chloride 0.9% [Normal Saline] 1,000 ml IV ASDIRECTED 08/18/21 17:46 Accu Check [Blood Glucose Check, Bedside] [RC] WITHMEALSANDBED 08/18/21 17:47 Dextrose 50% in Water 50 ml IVPUSH ASDIRECTED PRN Glucagon,Human Recombinant [GlucaGen] 1 mg IM ASDIRECTED PRN 08/18/21 Dinner Heart Healthy Diet [DIET] Insulin Aspart [NovoLOG] 15 unit SUBCUT TIDMEALS metFORMIN [Glucophage XR] 1,000 mg PO BIDMEALS 08/18/21 21:00 Apixaban [Eliquis] 5 mg PO BID Fenofibrate [Fenofibrate] 160 mg PO BEDTIME Insulin Glargine,Hum.Rec.Anlog [Semglee Pen] 45 unit SUBCUT BEDTIME 08/19/21 05:11 BASIC METABOLIC PANEL,BMP [CHEM] AM CBC WITH AUTO DIFF [HEME] AM MAGNESIUM [CHEM] AM 08/19/21 07:30 Omeprazole [Omeprazole] 40 mg PO ACBREAKFAST 08/19/21 09:00 Aspirin [Halfprin] 81 mg PO DAILY Beta-Carotene(A) w/C & E/Min [Prosight] 1 tab PO DAILY Cyanocobalamin (Vitamin B12) [Vitamin B12] 500 mcg PO DAILY Multivitamin [Multiple Vitamins] 1 each PO DAILY Rosuvastatin Calcium [Rosuvastatin Calcium] 40 mg PO DAILY Assessment:: 1. ATRIAL FIBRILLATION WITH RVR- IMPROVED Plan: 1. ADMIT TO MEDICINE- DISCUSSED CASE WITH JAYDE ZACARIAS/RYAN GONZALEZ- WILL ADMIT FOR RATE CONTROL 2. CONTINUE CARDIZEM 15MG/HR GTT 3. NS @150CC/HR 4. REPEAT LABS IN AM 5. SUPPORTIVE CARE
--- NOTE | 2021-08-18 16:11 | CR ---
[id number] RAD/RAD Chest PA or AP 1V EXAM: RAD Chest PA or AP 1V INDICATION: PALPITATIONS. COMPARISON: None. DISCUSSION: Cardiomediastinal silhouette is normal in size and contour. No infiltrate, effusion, pneumothorax, or edema. IMPRESSION: No acute cardiopulmonary abnormality. Zain Villalobos DO 08/18/21 [id number] Thank you for allowing us to participate in the care of your patient.
[2021-08-18] MEDS ORDERED: Diltiazem 125 MG in Sodium Chloride 0.9% 100 ML IV SCH ×2 (16:15→19:30)
[2021-08-18] MEDS ORDERED: Sodium Chloride 0.9% 100 ML ONE (16:21)
[2021-08-18 16:23] LABS: ANION GAP 19.9 mmol/L (5-15); CHLORIDE,CL 102 mmol/L (98-107); SODIUM,NA 141 mmol/L (136-145)
[2021-08-18] MEDS ORDERED: LORazepam 2 MG/ML SDV IVPUSH ONE (16:33)
[2021-08-18] MEDS ORDERED: Sodium Chloride 0.9% 1,000 ML IV ONE (16:51)
[2021-08-18] MEDS ORDERED: Glucagon,Human Recombinant 1 MG Vial IM PRN (17:47)
[2021-08-18] MEDS ORDERED: 50% Dextrose in Water 50 ML Syringe IVPUSH PRN (17:47)
[2021-08-18] MEDS: Sodium Chloride 0.9% 1,000 ML IV SCH (18:07)
[2021-08-18] MEDS: metFORMIN 500 MG Tab.ER PO SCH (19:00)
[2021-08-18] MEDS: Insulin Aspart 100 Units/ML 3 ML Pen SUBCUT SCH (19:00)
[2021-08-18] MEDS: Apixaban 5 MG Tab PO SCH (20:58)
[2021-08-18] MEDS ORDERED: Insulin Glargine,Hum.Rec.Anlog 100 UNIT/ML 3 ML Pen SUBCUT SCH (21:00)
[2021-08-18] MEDS ORDERED: Non-Formulary Medication 1 Each (Fenofibrate [Fenofibrate] 160 MG Tablet) PO SCH (21:00)
[2021-08-19] MEDS: Sodium Chloride 0.9% 1,000 ML IV SCH (02:25)
[2021-08-19] MEDS: Pantoprazole 40 MG Tab.CR PO SCH ×2 (06:00→06:31)
[2021-08-19 08:10] LABS: CHLORIDE,CL 106 mmol/L (98-107); SODIUM,NA 142 mmol/L (136-145)
[2021-08-19] MEDS: Apixaban 5 MG Tab PO SCH (08:24)
[2021-08-19] MEDS: Insulin Aspart 100 Units/ML 3 ML Pen SUBCUT SCH (08:24)
[2021-08-19] MEDS: metFORMIN 500 MG Tab.ER PO SCH (08:24)
[2021-08-19] MEDS ORDERED: Cyanocobalamin (Vitamin B12) 500 MCG Tab PO SCH (09:00)
[2021-08-19] MEDS ORDERED: Multivitamins with Minerals/Iron/Folic Acid/Lycopene Tab PO SCH (09:00)
[2021-08-19] MEDS ORDERED: Aspirin 81 MG Tab.EC PO SCH (09:00)
[2021-08-19] MEDS ORDERED: Lutein/Minerals/Vitamins A, C & E Tab PO SCH (09:00)
[2021-08-19] MEDS ORDERED: Rosuvastatin 10 MG Tab PO SCH (09:00)
[2021-08-19] MEDS ORDERED: Diltiazem 120 MG Cap.CD PO ONE (10:47)
[2021-08-19 11:11] VITALS: BP 106/66; PULSE 91
--- NOTE | 2021-08-19 11:15 | PCM.PN ---
- General Info Date of Service: 08/19/21 Admission Dx/Problem (Free Text): Atrial fibrillation which chemically converted to sinus rhythm after a 15 mg bolus and Cardizem drip at 5. Had interrupted sleep due to monitoring during the night but otherwise states she feels much better. - Review of Systems General: Reports: No Symptoms HEENT: Reports: No Symptoms Pulmonary: Reports: No Symptoms Cardiovascular: Reports: No Symptoms Gastrointestinal: Reports: No Symptoms Genitourinary: Reports: No Symptoms Musculoskeletal: Reports: No Symptoms Skin: Reports: No Symptoms Neurological: Reports: No Symptoms Psychiatric: Reports: No Symptoms - Patient Data Vitals - Most Recent: Last Vital Signs Temp 96.6 F L 08/19/21 06:23 Pulse 91 08/19/21 11:10 Resp 16 08/19/21 06:23 BP 106/66 08/19/21 11:10 Pulse Ox 95 08/19/21 06:23 Weight - Most Recent: 230 lb 14.4 oz I&O - Last 24 Hours: Intake & Output 08/18/21 08/19/21 08/19/21 22:59 06:59 14:59 Intake Total 1470 1918 Balance 1470 1918 Lab Results Last 24 Hours: Laboratory Results - last 24 hr 08/18/21 08/18/21 08/18/21 Range/Units 15:50 15:50 17:40 WBC 6.61 (5.00-10.00) 10^3/uL RBC 5.08 (3.80-5.50) 10^6/uL Hgb 12.6 (12.0-16.0) g/dL Hct 39.9 (37.0-47.0) % MCV 78.5 L (82.0-92.0) fL MCH 24.8 L (27.0-31.0) pg MCHC 31.6 L (32.0-36.0) g/dL RDW 15.3 H (11.5-14.5) % Plt Count 331 (150-400) 10^3/uL MPV 9.4 (7.4-10.4) fL Immature Gran % (Auto) 0.2 (0.0-5.0) % Neut % (Auto) 64.9 (50.0-70.0) % Lymph % (Auto) 26.2 (20.0-40.0) % [place] % (Auto) 7.6 (2.0-8.0) % Eos % (Auto) 0.6 L (1.0-3.0) % Baso % (Auto) 0.5 (0.0-1.0) % Neut # (Auto) 4.30 (2.50-7.00) 10^3/uL Lymph # (Auto) 1.73 (1.00-4.00) 10^3/uL [place] # (Auto) 0.50 (0.10-0.80) 10^3/uL Eos # (Auto) 0.04 L (0.10-0.30) 10^3/uL Baso # (Auto) 0.03 (0.00-0.10) 10^3/uL Immature Gran # (Auto) 0.01 (0.00-0.50) 10^3/uL Sodium 141 (136-145) mmol/L Potassium 4.4 (3.5-5.1) mmol/L Chloride 102 (98-107) mmol/L Carbon Dioxide 23.5 (21.0-32.0) mmol/L Anion Gap 19.9 H (5-15) mmol/L BUN 17 (7-18) mg/dL Creatinine 0.46 L (0.51-1.17) mg/dL Est Cr Clr Drug Dosing 122.31 mL/min Estimated GFR (MDRD) > 60 mL/min Glucose 208 H (70-140) mg/dL POC Glucose (70-140) mg/dL Calcium 10.3 D (8.7-10.3) mg/dL Magnesium (1.8-2.4) mg/dL Total Bilirubin 0.3 (0.2-1.0) mg/dL AST 18 (15-37) U/L ALT 29 (14-63) U/L Alkaline Phosphatase 50 (46-116) U/L Troponin I High Sens 14.300 (0-51.000) pg/mL B-Natriuretic Peptide 92 (0-100) pg/mL Total Protein 8.1 (6.4-8.2) g/dL Albumin 4.26 (3.40-5.00) g/dL SARS CoV-2 RNA Rapid PHILIP Negative (NEGATIVE) 08/18/21 08/18/21 08/19/21 Range/Units 18:28 20:52 07:35 WBC 6.83 (5.00-10.00) 10^3/uL RBC 4.19 (3.80-5.50) 10^6/uL Hgb 10.4 L D (12.0-16.0) g/dL Hct 33.2 L (37.0-47.0) % MCV 79.2 L (82.0-92.0) fL MCH 24.8 L (27.0-31.0) pg MCHC 31.3 L (32.0-36.0) g/dL RDW 15.3 H (11.5-14.5) % Plt Count 262 (150-400) 10^3/uL MPV 9.5 (7.4-10.4) fL Immature Gran % (Auto) 0.1 (0.0-5.0) % Neut % (Auto) 74.7 H (50.0-70.0) % Lymph % (Auto) 18.7 L (20.0-40.0) % [place] % (Auto) 5.6 (2.0-8.0) % Eos % (Auto) 0.6 L (1.0-3.0) % Baso % (Auto) 0.3 (0.0-1.0) % Neut # (Auto) 5.10 (2.50-7.00) 10^3/uL Lymph # (Auto) 1.28 (1.00-4.00) 10^3/uL [place] # (Auto) 0.38 (0.10-0.80) 10^3/uL Eos # (Auto) 0.04 L (0.10-0.30) 10^3/uL Baso # (Auto) 0.02 (0.00-0.10) 10^3/uL Immature Gran # (Auto) 0.01 (0.00-0.50) 10^3/uL Sodium (136-145) mmol/L Potassium (3.5-5.1) mmol/L Chloride (98-107) mmol/L Carbon Dioxide (21.0-32.0) mmol/L Anion Gap (5-15) mmol/L BUN (7-18) mg/dL Creatinine (0.51-1.17) mg/dL Est Cr Clr Drug Dosing mL/min Estimated GFR (MDRD) mL/min Glucose (70-140) mg/dL POC Glucose 188 H 155 H (70-140) mg/dL Calcium (8.7-10.3) mg/dL Magnesium (1.8-2.4) mg/dL Total Bilirubin (0.2-1.0) mg/dL AST (15-37) U/L ALT (14-63) U/L Alkaline Phosphatase (46-116) U/L Troponin I High Sens (0-51.000) pg/mL B-Natriuretic Peptide (0-100) pg/mL Total Protein (6.4-8.2) g/dL Albumin (3.40-5.00) g/dL SARS CoV-2 RNA Rapid PHILIP (NEGATIVE) 08/19/21 08/19/21 Range/Units 07:35 07:38 WBC (5.00-10.00) 10^3/uL RBC (3.80-5.50) 10^6/uL Hgb (12.0-16.0) g/dL Hct (37.0-47.0) % MCV (82.0-92.0) fL MCH (27.0-31.0) pg MCHC (32.0-36.0) g/dL RDW (11.5-14.5) % Plt Count (150-400) 10^3/uL MPV (7.4-10.4) fL Immature Gran % (Auto) (0.0-5.0) % Neut % (Auto) (50.0-70.0) % Lymph % (Auto) (20.0-40.0) % [place] % (Auto) (2.0-8.0) % Eos % (Auto) (1.0-3.0) % Baso % (Auto) (0.0-1.0) % Neut # (Auto) (2.50-7.00) 10^3/uL Lymph # (Auto) (1.00-4.00) 10^3/uL [place] # (Auto) (0.10-0.80) 10^3/uL Eos # (Auto) (0.10-0.30) 10^3/uL Baso # (Auto) (0.00-0.10) 10^3/uL Immature Gran # (Auto) (0.00-0.50) 10^3/uL Sodium 142 (136-145) mmol/L Potassium 4.3 (3.5-5.1) mmol/L Chloride 106 (98-107) mmol/L Carbon Dioxide 23.3 (21.0-32.0) mmol/L Anion Gap 17.0 H (5-15) mmol/L BUN 9 (7-18) mg/dL Creatinine 0.39 L (0.51-1.17) mg/dL Est Cr Clr Drug Dosing 141.17 mL/min Estimated GFR (MDRD) > 60 mL/min Glucose 136 (70-140) mg/dL POC Glucose 137 (70-140) mg/dL Calcium 8.5 L D (8.7-10.3) mg/dL Magnesium 1.2 L (1.8-2.4) mg/dL Total Bilirubin (0.2-1.0) mg/dL AST (15-37) U/L ALT (14-63) U/L Alkaline Phosphatase (46-116) U/L Troponin I High Sens (0-51.000) pg/mL B-Natriuretic Peptide (0-100) pg/mL Total Protein (6.4-8.2) g/dL Albumin (3.40-5.00) g/dL SARS CoV-2 RNA Rapid PHILIP (NEGATIVE) Med Orders - Current: Current Medications Apixaban (Apixaban 5 Mg Tab) 5 mg PO BID [facility] Last Admin: 08/19/21 08:24 Dose: 5 mg Documented by: Aspirin (Aspirin 81 Mg Tab.Ec) 81 mg PO DAILY [facility] Last Admin: 08/19/21 08:24 Dose: 81 mg Documented by: Cyanocobalamin (Cyanocobalamin (Vitamin B12) 500 Mcg Tab) 500 mcg PO DAILY [facility] Last Admin: 08/19/21 08:24 Dose: 500 mcg Documented by: Dextrose/Water (50% Dextrose In Water 50 Ml Syringe) 50 ml IVPUSH ASDIRECTED PRN PRN Reason: Hypoglycemia Glucagon (Glucagon,Human Recombinant 1 Mg Vial) 1 mg IM ASDIRECTED PRN PRN Reason: Hypoglycemia Sodium Chloride (Normal Saline) 1,000 mls @ 125 mls/hr IV ASDIRECTED [facility] Last Admin: 08/19/21 02:25 Dose: 125 mls/hr Documented by: Insulin Aspart (Insulin Aspart 100 Units/Ml 3 Ml Pen) 15 unit SUBCUT TIDMEALS [facility] Last Admin: 08/19/21 08:24 Dose: 15 units Documented by: Insulin Glargine (Insulin Glargine,Hum.Rec.Anlog 100 Unit/Ml 3 Ml Pen) 45 unit SUBCUT BEDTIME [facility] Last Admin: 08/18/21 20:59 Dose: 45 units Documented by: Metformin HCl (Metformin 500 Mg Tab.Er) 1,000 mg PO BIDMEALS [facility] Last Admin: 08/19/21 08:24 Dose: 1,000 mg Documented by: Multivitamins/Minerals (Lutein/Minerals/Vitamins A, C & E Tab) 1 each PO DAILY [facility] Last Admin: 08/19/21 08:24 Dose: 1 each Documented by: Multivitamins/Minerals (Multivitamins With Minerals/Iron/Folic Acid/Lycopene Tab) 1 tab PO DAILY [facility] Last Admin: 08/19/21 08:23 Dose: 1 tab Documented by: Fenofibrate 160 Mg (Tablet Own Med) 0 mg PO BEDTIME [facility] Pantoprazole Sodium (Pantoprazole 40 Mg Tab.Cr) 40 mg PO ACBREAKFAST [facility] Last Admin: 08/19/21 06:31 Dose: Not Given Documented by: Rosuvastatin Calcium (Rosuvastatin 10 Mg Tab) 40 mg PO DAILY [facility] Last Admin: 08/19/21 08:23 Dose: 40 mg Documented by: Sodium Chloride (Sodium Chloride 0.9% 10 Ml Syringe) 10 ml FLUSH Q8HR PRN PRN Reason: keep vein open Discontinued Medications Diltiazem HCl (Diltiazem 25 Mg/5 Ml Sdv) 15 mg IVPUSH ONETIME ONE Stop: 08/18/21 15:52 Last Admin: 08/18/21 16:00 Dose: 15 mg Documented by: Diltiazem HCl (Diltiazem 120 Mg Cap.Cd) 120 mg PO ONETIME ONE Stop: 08/19/21 10:48 Last Admin: 08/19/21 11:10 Dose: 120 mg Documented by: Diltiazem HCl 125 mg/ Sodium (Chloride) 125 mls @ 15 mls/hr IV TITRATE [facility] Last Admin: 08/18/21 16:25 Dose: 15 mg/hr, 15 mls/hr Documented by: Sodium Chloride (Normal Saline) Confirm Administered Dose 100 mls @ as directed .ROUTE .STK-MED ONE Stop: 08/18/21 16:22 Last Admin: 08/18/21 17:29 Dose: Not Given Documented by: Sodium Chloride (Normal Saline) 1,000 mls @ 999 mls/hr IV .BOLUS ONE Stop: 08/18/21 17:51 Last Admin: 08/18/21 17:02 Dose: 999 mls/hr Documented by: Diltiazem HCl 125 mg/ Sodium (Chloride) 125 mls @ 5 mls/hr IV ASDIRECTED [facility] Last Admin: 08/18/21 19:25 Dose: 5 mls/hr Documented by: Lorazepam (Lorazepam 2 Mg/Ml Sdv) 1 mg IVPUSH ONETIME ONE Stop: 08/18/21 16:34 Last Admin: 08/18/21 16:41 Dose: 1 mg Documented by: Sodium Chloride (Sodium Chloride 0.9% 10 Ml Syringe) 10 ml FLUSH Q8HR PRN PRN Reason: keep vein open - Exam General: Alert, Oriented HEENT: Pupils Equal, Pupils Reactive, EOMI, Mucous Membr. Moist/[place] Neck: Supple Lungs: Clear to Auscultation, Normal Respiratory Effort Cardiovascular: Regular Rate, Regular Rhythm GI/Abdominal Exam: Normal Bowel Sounds, Soft, Non-Tender, No Organomegaly, No Distention, No Abnormal Bruit, No Mass, Pelvis Stable (Female) Exam: Deferred Back Exam: Normal Inspection Extremities: Normal Inspection, Normal Range of Motion, Non-Tender, No Pedal Edema, Normal Capillary Refill - Patient Data Lab Results Last 24 hrs: Laboratory Results - last 24 hr 08/18/21 08/18/21 08/18/21 Range/Units 15:50 15:50 17:40 WBC 6.61 (5.00-10.00) 10^3/uL RBC 5.08 (3.80-5.50) 10^6/uL Hgb 12.6 (12.0-16.0) g/dL Hct 39.9 (37.0-47.0) % MCV 78.5 L (82.0-92.0) fL MCH 24.8 L (27.0-31.0) pg MCHC 31.6 L (32.0-36.0) g/dL RDW 15.3 H (11.5-14.5) % Plt Count 331 (150-400) 10^3/uL MPV 9.4 (7.4-10.4) fL Immature Gran % (Auto) 0.2 (0.0-5.0) % Neut % (Auto) 64.9 (50.0-70.0) % Lymph % (Auto) 26.2 (20.0-40.0) % [place] % (Auto) 7.6 (2.0-8.0) % Eos % (Auto) 0.6 L (1.0-3.0) % Baso % (Auto) 0.5 (0.0-1.0) % Neut # (Auto) 4.30 (2.50-7.00) 10^3/uL Lymph # (Auto) 1.73 (1.00-4.00) 10^3/uL [place] # (Auto) 0.50 (0.10-0.80) 10^3/uL Eos # (Auto) 0.04 L (0.10-0.30) 10^3/uL Baso # (Auto) 0.03 (0.00-0.10) 10^3/uL Immature Gran # (Auto) 0.01 (0.00-0.50) 10^3/uL Sodium 141 (136-145) mmol/L Potassium 4.4 (3.5-5.1) mmol/L Chloride 102 (98-107) mmol/L Carbon Dioxide 23.5 (21.0-32.0) mmol/L Anion Gap 19.9 H (5-15) mmol/L BUN 17 (7-18) mg/dL Creatinine 0.46 L (0.51-1.17) mg/dL Est Cr Clr Drug Dosing 122.31 mL/min Estimated GFR (MDRD) > 60 mL/min Glucose 208 H (70-140) mg/dL POC Glucose (70-140) mg/dL Calcium 10.3 D (8.7-10.3) mg/dL Magnesium (1.8-2.4) mg/dL Total Bilirubin 0.3 (0.2-1.0) mg/dL AST 18 (15-37) U/L ALT 29 (14-63) U/L Alkaline Phosphatase 50 (46-116) U/L Troponin I High Sens 14.300 (0-51.000) pg/mL B-Natriuretic Peptide 92 (0-100) pg/mL Total Protein 8.1 (6.4-8.2) g/dL Albumin 4.26 (3.40-5.00) g/dL SARS CoV-2 RNA Rapid PHILIP Negative (NEGATIVE) 08/18/21 08/18/21 08/19/21 Range/Units 18:28 20:52 07:35 WBC 6.83 (5.00-10.00) 10^3/uL RBC 4.19 (3.80-5.50) 10^6/uL Hgb 10.4 L D (12.0-16.0) g/dL Hct 33.2 L (37.0-47.0) % MCV 79.2 L (82.0-92.0) fL MCH 24.8 L (27.0-31.0) pg MCHC 31.3 L (32.0-36.0) g/dL RDW 15.3 H (11.5-14.5) % Plt Count 262 (150-400) 10^3/uL MPV 9.5 (7.4-10.4) fL Immature Gran % (Auto) 0.1 (0.0-5.0) % Neut % (Auto) 74.7 H (50.0-70.0) % Lymph % (Auto) 18.7 L (20.0-40.0) % [place] % (Auto) 5.6 (2.0-8.0) % Eos % (Auto) 0.6 L (1.0-3.0) % Baso % (Auto) 0.3 (0.0-1.0) % Neut # (Auto) 5.10 (2.50-7.00) 10^3/uL Lymph # (Auto) 1.28 (1.00-4.00) 10^3/uL [place] # (Auto) 0.38 (0.10-0.80) 10^3/uL Eos # (Auto) 0.04 L (0.10-0.30) 10^3/uL Baso # (Auto) 0.02 (0.00-0.10) 10^3/uL Immature Gran # (Auto) 0.01 (0.00-0.50) 10^3/uL Sodium (136-145) mmol/L Potassium (3.5-5.1) mmol/L Chloride (98-107) mmol/L Carbon Dioxide (21.0-32.0) mmol/L Anion Gap (5-15) mmol/L BUN (7-18) mg/dL Creatinine (0.51-1.17) mg/dL Est Cr Clr Drug Dosing mL/min Estimated GFR (MDRD) mL/min Glucose (70-140) mg/dL POC Glucose 188 H 155 H (70-140) mg/dL Calcium (8.7-10.3) mg/dL Magnesium (1.8-2.4) mg/dL Total Bilirubin (0.2-1.0) mg/dL AST (15-37) U/L ALT (14-63) U/L Alkaline Phosphatase (46-116) U/L Troponin I High Sens (0-51.000) pg/mL B-Natriuretic Peptide (0-100) pg/mL Total Protein (6.4-8.2) g/dL Albumin (3.40-5.00) g/dL SARS CoV-2 RNA Rapid PHILIP (NEGATIVE) 08/19/21 08/19/21 Range/Units 07:35 07:38 WBC (5.00-10.00) 10^3/uL RBC (3.80-5.50) 10^6/uL Hgb (12.0-16.0) g/dL Hct (37.0-47.0) % MCV (82.0-92.0) fL MCH (27.0-31.0) pg MCHC (32.0-36.0) g/dL RDW (11.5-14.5) % Plt Count (150-400) 10^3/uL MPV (7.4-10.4) fL Immature Gran % (Auto) (0.0-5.0) % Neut % (Auto) (50.0-70.0) % Lymph % (Auto) (20.0-40.0) % [place] % (Auto) (2.0-8.0) % Eos % (Auto) (1.0-3.0) % Baso % (Auto) (0.0-1.0) % Neut # (Auto) (2.50-7.00) 10^3/uL Lymph # (Auto) (1.00-4.00) 10^3/uL [place] # (Auto) (0.10-0.80) 10^3/uL Eos # (Auto) (0.10-0.30) 10^3/uL Baso # (Auto) (0.00-0.10) 10^3/uL Immature Gran # (Auto) (0.00-0.50) 10^3/uL Sodium 142 (136-145) mmol/L Potassium 4.3 (3.5-5.1) mmol/L Chloride 106 (98-107) mmol/L Carbon Dioxide 23.3 (21.0-32.0) mmol/L Anion Gap 17.0 H (5-15) mmol/L BUN 9 (7-18) mg/dL Creatinine 0.39 L (0.51-1.17) mg/dL Est Cr Clr Drug Dosing 141.17 mL/min Estimated GFR (MDRD) > 60 mL/min Glucose 136 (70-140) mg/dL POC Glucose 137 (70-140) mg/dL Calcium 8.5 L D (8.7-10.3) mg/dL Magnesium 1.2 L (1.8-2.4) mg/dL Total Bilirubin (0.2-1.0) mg/dL AST (15-37) U/L ALT (14-63) U/L Alkaline Phosphatase (46-116) U/L Troponin I High Sens (0-51.000) pg/mL B-Natriuretic Peptide (0-100) pg/mL Total Protein (6.4-8.2) g/dL Albumin (3.40-5.00) g/dL SARS CoV-2 RNA Rapid PHILIP (NEGATIVE) Result Diagrams: 08/19/21 07:35 08/19/21 07:35 Sepsis Event Note - Evaluation Sepsis Screening Result: No Definite Risk - Focused Exam Vital Signs: Vital Signs Temp Pulse Pulse Resp BP BP Pulse Ox 08/19/21 11:10 91 106/66 08/19/21 06:23 96.6 F L 95 16 122/69 95 08/19/21 02:50 96.0 F L 91 16 109/63 95 - Problem List & Annotations (1) Paroxysmal atrial fibrillation with rapid ventricular response SNOMED Code(s): 9867503596 Code(s): I48.0 - PAROXYSMAL ATRIAL FIBRILLATION Status: Acute Priority: High Current Visit: Yes Annotation/Comment:: 45 minutes spent with disconnect and no answer with [facility] and attempt to contact cardiology to discuss the case. Breakthrough on metoprolol and significant symptoms resolving with cardioversion/chemical via diltiazem bolus and drip. We will implement Cardizem CD 120 until she follows up with cardiology. - Problem List Review Problem List Initiated/Reviewed/Updated: Yes - Plan Plan:: None for discharge home with implementation of Cardizem CD 120 placing her losartan on hold and continuing metoprolol at the current dose. All other medications continued as instructed and follow-up as scheduled/planned with her cardiology. Return here if concerns develop.
--- NOTE | 2021-08-19 11:21 | PCM.DCSUM1 ---
Discharge Summary - Hospital Course Free Text/Narrative:: Was seen in the emergency department yesterday afternoon for malaise, hypotension and issues with breathing and rapid pulse. She was found to be in atrial fibrillation and was successfully chemically cardioverted, conversion with 15 mg IV diltiazem followed by a 5 mg drip. She is remained in sinus rhythm with controlled rate since then. She is feeling well with no complaints. Brief History: Has had paroxysmal atrial flutter in the past which has been successfully electrically converted x2 the first time requiring 2-day stay in the hospital at [place]. The second time converted in the emergency department. She has been seen here in the emergency department in [place] [address] first time successfully converted with a small dose of IV Cardizem. This time requiring a higher dose and drip for conversion. She has had no complaints since conversion occurred. Diagnosis: Stroke: No - Discharge Data Discharge Date: 08/19/21 Discharge Disposition: Home, Self-Care 01 Condition: Good - Referral to Home Health Date of Face to Face Encounter: 08/19/21 Primary Care Physician: Jayde Beltrán MD - Discharge Diagnosis/Problem(s) (1) Paroxysmal atrial fibrillation with rapid ventricular response SNOMED Code(s): 8304904379 ICD Code: I48.0 - PAROXYSMAL ATRIAL FIBRILLATION Status: Acute Priority: High Problem Details: 45 minutes spent with disconnect and no answer with [facility] and attempt to contact cardiology to discuss the case. Breakthrough on metoprolol and significant symptoms resolving with cardioversion/chemical via diltiazem bolus and drip. We will implement Cardizem CD 120 until she follows up with cardiology. - Patient Instructions Diet: Heart Healthy Diet, Diabetic Diet Activity: As Tolerated Driving: May Drive Today Showering/Bathing: May Shower Notify Provider of: Fever - Discharge Plan *PRESCRIPTION DRUG MONITORING PROGRAM REVIEWED*: Not Applicable *COPY OF PRESCRIPTION DRUG MONITORING REPORT IN PATIENT FANTA: Not Applicable Prescriptions/Med Rec: Diltiazem [Cardizem CD] 120 mg PO DAILY 30 Days #30 cap.er Home Medications: Home Meds Aspirin [Halfprin] 1 tab PO DAILY 07/03/16 [History] Omeprazole 40 mg PO ACBREAKFAST 07/03/16 [History] metFORMIN [Glucophage XR] 1,000 mg PO BIDMEALS 08/28/16 [History] Acetaminophen 500 mg PO Q6H PRN 07/01/21 [History] Apixaban [Eliquis] 5 mg PO BID 07/01/21 [History] Beta-Carotene(A) w/C & E/Min [Prosight] 1 tab PO DAILY 07/01/21 [History] Cyanocobalamin (Vitamin B12) [Vitamin B13] 500 mcg PO DAILY 07/01/21 [History] Fenofibrate 160 mg PO BEDTIME 07/01/21 [History] Insulin Aspart [NovoLOG] 15 unit SQ TIDMEALS 07/01/21 [History] Losartan Potassium 25 mg PO BEDTIME 07/01/21 [History] Metoprolol Tartrate 50 mg PO BID 07/01/21 [History] Multivitamin [Multiple Vitamins] 1 each PO DAILY 07/01/21 [History] Rosuvastatin Calcium 40 mg PO DAILY 07/01/21 [History] Insulin Glargine,Hum.Rec.Anlog [Basaglar Kwikpen U-100] 45 unit SQ BEDTIME 08/18/21 [History] Diltiazem [Cardizem CD] 120 mg PO DAILY 30 Days #30 cap.er 08/19/21 [Rx] Oxygen Therapy Mode: Room Air Forms: ED Department Discharge Referrals: Jayde Beltrán MD [Primary Care Provider] - - Discharge Summary/Plan Comment DC Time >30 min.: No (none) Discharge Summary/Plan Comment: As she has done well with current regimen and lab work other than washout due to the fluid she received due to hypotension dropping her hemoglobin nearly 2 g. 45 minutes was spent in attempt to contact cardiology at [facility] unsuccessfully. 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 It is noted she states she is going to have colonoscopy in the next week. She should contact her provider through [facility] and explained the situation as records will be available for them. It is evident that the metoprolol is not enough to keep her rate controlled, specifically in a sinus rhythm. Cardizem chemical conversion was easily successful and will be placed on 120 mg daily until she is followed up next week. This can be discussed at her preop screening as well as via MyChart to the providers. Return here to the emergency department/hospital/or her clinic as needed in the meantime. - General Info Date of Service: 08/19/21 Admission Dx/Problem (Free Text: Atrial fibrillation which chemically converted to sinus rhythm after a 15 mg bolus and Cardizem drip at 5. Had interrupted sleep due to monitoring during the night but otherwise states she feels much better. Functional Status: Reports: Pain Controlled - Review of Systems General: Reports: No Symptoms HEENT: Reports: No Symptoms Pulmonary: Reports: No Symptoms Cardiovascular: Reports: No Symptoms Gastrointestinal: Reports: No Symptoms Genitourinary: Reports: No Symptoms Musculoskeletal: Reports: No Symptoms Skin: Reports: No Symptoms Neurological: Reports: No Symptoms Psychiatric: Reports: No Symptoms - Patient Data Vitals - Most Recent: Last Vital Signs Temp 96.6 F L 08/19/21 06:23 Pulse 91 08/19/21 11:10 Resp 16 08/19/21 06:23 BP 106/66 08/19/21 11:10 Pulse Ox 95 08/19/21 06:23 Weight - Most Recent: 230 lb 14.4 oz I&O - Last 24 hours: Intake & Output 08/18/21 08/19/21 08/19/21 22:59 06:59 14:59 Intake Total 1470 1918 296 Balance 1470 1918 296 Lab Results - Last 24 hrs: Laboratory Results - last 24 hr 08/18/21 08/18/21 08/18/21 Range/Units 15:50 15:50 17:40 WBC 6.61 (5.00-10.00) 10^3/uL RBC 5.08 (3.80-5.50) 10^6/uL Hgb 12.6 (12.0-16.0) g/dL Hct 39.9 (37.0-47.0) % MCV 78.5 L (82.0-92.0) fL MCH 24.8 L (27.0-31.0) pg MCHC 31.6 L (32.0-36.0) g/dL RDW 15.3 H (11.5-14.5) % Plt Count 331 (150-400) 10^3/uL MPV 9.4 (7.4-10.4) fL Immature Gran % (Auto) 0.2 (0.0-5.0) % Neut % (Auto) 64.9 (50.0-70.0) % Lymph % (Auto) 26.2 (20.0-40.0) % [place] % (Auto) 7.6 (2.0-8.0) % Eos % (Auto) 0.6 L (1.0-3.0) % Baso % (Auto) 0.5 (0.0-1.0) % Neut # (Auto) 4.30 (2.50-7.00) 10^3/uL Lymph # (Auto) 1.73 (1.00-4.00) 10^3/uL [place] # (Auto) 0.50 (0.10-0.80) 10^3/uL Eos # (Auto) 0.04 L (0.10-0.30) 10^3/uL Baso # (Auto) 0.03 (0.00-0.10) 10^3/uL Immature Gran # (Auto) 0.01 (0.00-0.50) 10^3/uL Sodium 141 (136-145) mmol/L Potassium 4.4 (3.5-5.1) mmol/L Chloride 102 (98-107) mmol/L Carbon Dioxide 23.5 (21.0-32.0) mmol/L Anion Gap 19.9 H (5-15) mmol/L BUN 17 (7-18) mg/dL Creatinine 0.46 L (0.51-1.17) mg/dL Est Cr Clr Drug Dosing 122.31 mL/min Estimated GFR (MDRD) > 60 mL/min Glucose 208 H (70-140) mg/dL POC Glucose (70-140) mg/dL Calcium 10.3 D (8.7-10.3) mg/dL Magnesium (1.8-2.4) mg/dL Total Bilirubin 0.3 (0.2-1.0) mg/dL AST 18 (15-37) U/L ALT 29 (14-63) U/L Alkaline Phosphatase 50 (46-116) U/L Troponin I High Sens 14.300 (0-51.000) pg/mL B-Natriuretic Peptide 92 (0-100) pg/mL Total Protein 8.1 (6.4-8.2) g/dL Albumin 4.26 (3.40-5.00) g/dL SARS CoV-2 RNA Rapid PHILIP Negative (NEGATIVE) 08/18/21 08/18/21 08/19/21 Range/Units 18:28 20:52 07:35 WBC 6.83 (5.00-10.00) 10^3/uL RBC 4.19 (3.80-5.50) 10^6/uL Hgb 10.4 L D (12.0-16.0) g/dL Hct 33.2 L (37.0-47.0) % MCV 79.2 L (82.0-92.0) fL MCH 24.8 L (27.0-31.0) pg MCHC 31.3 L (32.0-36.0) g/dL RDW 15.3 H (11.5-14.5) % Plt Count 262 (150-400) 10^3/uL MPV 9.5 (7.4-10.4) fL Immature Gran % (Auto) 0.1 (0.0-5.0) % Neut % (Auto) 74.7 H (50.0-70.0) % Lymph % (Auto) 18.7 L (20.0-40.0) % [place] % (Auto) 5.6 (2.0-8.0) % Eos % (Auto) 0.6 L (1.0-3.0) % Baso % (Auto) 0.3 (0.0-1.0) % Neut # (Auto) 5.10 (2.50-7.00) 10^3/uL Lymph # (Auto) 1.28 (1.00-4.00) 10^3/uL [place] # (Auto) 0.38 (0.10-0.80) 10^3/uL Eos # (Auto) 0.04 L (0.10-0.30) 10^3/uL Baso # (Auto) 0.02 (0.00-0.10) 10^3/uL Immature Gran # (Auto) 0.01 (0.00-0.50) 10^3/uL Sodium (136-145) mmol/L Potassium (3.5-5.1) mmol/L Chloride (98-107) mmol/L Carbon Dioxide (21.0-32.0) mmol/L Anion Gap (5-15) mmol/L BUN (7-18) mg/dL Creatinine (0.51-1.17) mg/dL Est Cr Clr Drug Dosing mL/min Estimated GFR (MDRD) mL/min Glucose (70-140) mg/dL POC Glucose 188 H 155 H (70-140) mg/dL Calcium (8.7-10.3) mg/dL Magnesium (1.8-2.4) mg/dL Total Bilirubin (0.2-1.0) mg/dL AST (15-37) U/L ALT (14-63) U/L Alkaline Phosphatase (46-116) U/L Troponin I High Sens (0-51.000) pg/mL B-Natriuretic Peptide (0-100) pg/mL Total Protein (6.4-8.2) g/dL Albumin (3.40-5.00) g/dL SARS CoV-2 RNA Rapid PHILIP (NEGATIVE) 08/19/21 08/19/21 Range/Units 07:35 07:38 WBC (5.00-10.00) 10^3/uL RBC (3.80-5.50) 10^6/uL Hgb (12.0-16.0) g/dL Hct (37.0-47.0) % MCV (82.0-92.0) fL MCH (27.0-31.0) pg MCHC (32.0-36.0) g/dL RDW (11.5-14.5) % Plt Count (150-400) 10^3/uL MPV (7.4-10.4) fL Immature Gran % (Auto) (0.0-5.0) % Neut % (Auto) (50.0-70.0) % Lymph % (Auto) (20.0-40.0) % [place] % (Auto) (2.0-8.0) % Eos % (Auto) (1.0-3.0) % Baso % (Auto) (0.0-1.0) % Neut # (Auto) (2.50-7.00) 10^3/uL Lymph # (Auto) (1.00-4.00) 10^3/uL [place] # (Auto) (0.10-0.80) 10^3/uL Eos # (Auto) (0.10-0.30) 10^3/uL Baso # (Auto) (0.00-0.10) 10^3/uL Immature Gran # (Auto) (0.00-0.50) 10^3/uL Sodium 142 (136-145) mmol/L Potassium 4.3 (3.5-5.1) mmol/L Chloride 106 (98-107) mmol/L Carbon Dioxide 23.3 (21.0-32.0) mmol/L Anion Gap 17.0 H (5-15) mmol/L BUN 9 (7-18) mg/dL Creatinine 0.39 L (0.51-1.17) mg/dL Est Cr Clr Drug Dosing 141.17 mL/min Estimated GFR (MDRD) > 60 mL/min Glucose 136 (70-140) mg/dL POC Glucose 137 (70-140) mg/dL Calcium 8.5 L D (8.7-10.3) mg/dL Magnesium 1.2 L (1.8-2.4) mg/dL Total Bilirubin (0.2-1.0) mg/dL AST (15-37) U/L ALT (14-63) U/L Alkaline Phosphatase (46-116) U/L Troponin I High Sens (0-51.000) pg/mL B-Natriuretic Peptide (0-100) pg/mL Total Protein (6.4-8.2) g/dL Albumin (3.40-5.00) g/dL SARS CoV-2 RNA Rapid PHILIP (NEGATIVE) Med Orders - Current: Current Medications Apixaban (Apixaban 5 Mg Tab) 5 mg PO BID [facility] Last Admin: 08/19/21 08:24 Dose: 5 mg Documented by: Aspirin (Aspirin 81 Mg Tab.Ec) 81 mg PO DAILY [facility] Last Admin: 08/19/21 08:24 Dose: 81 mg Documented by: Cyanocobalamin (Cyanocobalamin (Vitamin B12) 500 Mcg Tab) 500 mcg PO DAILY [facility] Last Admin: 08/19/21 08:24 Dose: 500 mcg Documented by: Dextrose/Water (50% Dextrose In Water 50 Ml Syringe) 50 ml IVPUSH ASDIRECTED PRN PRN Reason: Hypoglycemia Glucagon (Glucagon,Human Recombinant 1 Mg Vial) 1 mg IM ASDIRECTED PRN PRN Reason: Hypoglycemia Sodium Chloride (Normal Saline) 1,000 mls @ 125 mls/hr IV ASDIRECTED [facility] Last Admin: 08/19/21 02:25 Dose: 125 mls/hr Documented by: Insulin Aspart (Insulin Aspart 100 Units/Ml 3 Ml Pen) 15 unit SUBCUT TIDMEALS [facility] Last Admin: 08/19/21 08:24 Dose: 15 units Documented by: Insulin Glargine (Insulin Glargine,Hum.Rec.Anlog 100 Unit/Ml 3 Ml Pen) 45 unit SUBCUT BEDTIME [facility] Last Admin: 08/18/21 20:59 Dose: 45 units Documented by: Metformin HCl (Metformin 500 Mg Tab.Er) 1,000 mg PO BIDMEALS [facility] Last Admin: 08/19/21 08:24 Dose: 1,000 mg Documented by: Multivitamins/Minerals (Lutein/Minerals/Vitamins A, C & E Tab) 1 each PO DAILY [facility] Last Admin: 08/19/21 08:24 Dose: 1 each Documented by: Multivitamins/Minerals (Multivitamins With Minerals/Iron/Folic Acid/Lycopene Tab) 1 tab PO DAILY [facility] Last Admin: 08/19/21 08:23 Dose: 1 tab Documented by: Fenofibrate 160 Mg (Tablet Own Med) 0 mg PO BEDTIME [facility] Pantoprazole Sodium (Pantoprazole 40 Mg Tab.Cr) 40 mg PO ACBREAKFAST [facility] Last Admin: 08/19/21 06:31 Dose: Not Given Documented by: Rosuvastatin Calcium (Rosuvastatin 10 Mg Tab) 40 mg PO DAILY [facility] Last Admin: 08/19/21 08:23 Dose: 40 mg Documented by: Sodium Chloride (Sodium Chloride 0.9% 10 Ml Syringe) 10 ml FLUSH Q8HR PRN PRN Reason: keep vein open Discontinued Medications Diltiazem HCl (Diltiazem 25 Mg/5 Ml Sdv) 15 mg IVPUSH ONETIME ONE Stop: 08/18/21 15:52 Last Admin: 08/18/21 16:00 Dose: 15 mg Documented by: Diltiazem HCl (Diltiazem 120 Mg Cap.Cd) 120 mg PO ONETIME ONE Stop: 08/19/21 10:48 Last Admin: 08/19/21 11:10 Dose: 120 mg Documented by: Diltiazem HCl 125 mg/ Sodium (Chloride) 125 mls @ 15 mls/hr IV TITRATE [facility] Last Admin: 08/18/21 16:25 Dose: 15 mg/hr, 15 mls/hr Documented by: Sodium Chloride (Normal Saline) Confirm Administered Dose 100 mls @ as directed .ROUTE .STK-MED ONE Stop: 08/18/21 16:22 Last Admin: 08/18/21 17:29 Dose: Not Given Documented by: Sodium Chloride (Normal Saline) 1,000 mls @ 999 mls/hr IV .BOLUS ONE Stop: 08/18/21 17:51 Last Admin: 08/18/21 17:02 Dose: 999 mls/hr Documented by: Diltiazem HCl 125 mg/ Sodium (Chloride) 125 mls @ 5 mls/hr IV ASDIRECTED [facility] Last Admin: 08/18/21 19:25 Dose: 5 mls/hr Documented by: Lorazepam (Lorazepam 2 Mg/Ml Sdv) 1 mg IVPUSH ONETIME ONE Stop: 08/18/21 16:34 Last Admin: 08/18/21 16:41 Dose: 1 mg Documented by: Sodium Chloride (Sodium Chloride 0.9% 10 Ml Syringe) 10 ml FLUSH Q8HR PRN PRN Reason: keep vein open - Exam Quality Assessment: Denies: Supplemental Oxygen General: Reports: Alert, Oriented HEENT: Reports: Pupils Equal, Pupils Reactive, EOMI, Mucous Membr. Moist/[place] Neck: Reports: Supple Lungs: Reports: Clear to Auscultation, Normal Respiratory Effort. Denies: Decreased Breath Sounds Cardiovascular: Reports: Regular Rate, Regular Rhythm GI/Abdominal Exam: Normal Bowel Sounds, Soft (Female) Exam: Deferred Rectal (Female) Exam: Deferred Back Exam: Reports: Full Range of Motion. Denies: CVA Tenderness (L), CVA Tenderness (R) Extremities: Normal Inspection, No Pedal Edema Skin: Reports: Warm, Dry, Intact Neurological: Reports: No New Focal Deficit Psy/Mental Status: Reports: Alert, Normal Affect, Normal Mood
[2021-08-19] MEDS ORDERED: FENOFIBRATE 160 MG PO SCH (21:00)
== END 2021-08-19 11:50 | disposition home or self-care (01) | DRG 201 ==
LOC: KA.ED 15:31 → KA.MS 17:40 → UNDODISIN 08-19 11:50
PROVIDERS: ADMIT Physician Assistant Medical; ATTEND Internal Medicine
PROC: 5A2204Z Restoration of Cardiac Rhythm, Single (ICD-10-PCS; principal; 2021-08-18)
DX: I48.0 Paroxysmal atrial fibrillation (principal); K21.9 Gastro-esophageal reflux disease without esophagitis; Z20.822 Contact with and (suspected) exposure to COVID-19; E78.5 Hyperlipidemia, unspecified; I10 Essential (primary) hypertension; H54.7 Unspecified visual loss; E11.9 Type 2 diabetes mellitus without complications; D64.9 Anemia, unspecified; Z90.89 Acquired absence of other organs; Z68.41 Body mass index [BMI] 40.0-44.9, adult; Z98.890 Other specified postprocedural states; Z87.440 Personal history of urinary (tract) infections; Z79.4 Long term (current) use of insulin; Z79.01 Long term (current) use of anticoagulants; E66.9 Obesity, unspecified
CPT/HCPCS: 36415; 71045; 80048; 80053; 82947; 83735; 83880; 84484; 85025; 96365; 96375; 99285-25; A9270-GY; J1815-GY; J2060; J3490; J7030; U0002

== ENCOUNTER 2021-09-12 01:11 | Inpatient (IN) | payer BC ==
[2021-09-12] MEDS ORDERED: Sodium Chloride 0.9% 1,000 ML IV ONE ×2 (01:49→12:27)
[2021-09-12] MEDS ORDERED: Diltiazem 25 MG/5 ML SDV IVPUSH ONE ×3 (01:49→03:16)
[2021-09-12] MEDS ORDERED: Sodium Chloride 0.9% 1,000 ML ONE (01:51)
[2021-09-12] MEDS ORDERED: LORazepam 2 MG/ML SDV IVPUSH ONE (01:59)
[2021-09-12] MEDS: Diltiazem 125 MG in Sodium Chloride 0.9% 100 ML IV SCH ×2 (02:58→11:37)
[2021-09-12 03:07] LABS: ANION GAP 18.8 mmol/L (5-15); CHLORIDE,CL 104 mmol/L (98-107); SODIUM,NA 141 mmol/L (136-145)
--- NOTE | 2021-09-12 03:24 | EDM.PDOC ---
ED HPI GENERAL MEDICAL PROBLEM - General Chief Complaint: Cardiovascular Problem Stated Complaint: tachycardia Time Seen by Provider: 09/12/21 01:45 FIRE CONTROL OFFICER Source of Information: Reports: Patient History Limitations: Reports: No Limitations - History of Present Illness INITIAL COMMENTS - FREE TEXT/NARRATIVE: Amie is a very pleasant 50-year-old female presents with complaints of a rapid heart rate. She has had now four episodes of atrial fibrillation. Most recently episode was 2 weeks ago. She was admitted in the hospital. She was started on a Cardizem and with a 5mg drip. She has had previous cardiology follow-up and was scheduled for a sleep apnea study. Other than feeling a little anxious and her heart racing has she has no other complaints. She denies chest pain. She denies diaphoresis. She denies any abdominal complaints nausea or vomiting. She is followed by Dr. Jayde Strong. Onset: Today Onset Date: 09/12/21 Onset Time: 01:00 Duration: Hour(s):, Recurring Location: Reports: Chest Severity: Moderate Improves with: Reports: Medication Worsens with: Reports: None Associated Symptoms: Denies: Chest Pain, Diaphoresis, Fever/Chills, [place] sea/Vomiting, Shortness of Breath - Related Data Allergies Allergy/AdvReac Type Severity Reaction Status Date / Time lisinopril Allergy Cough Verified 09/12/21 01:45 FIRE CONTROL OFFICER morphine Allergy Nausea and Verified 09/12/21 01:45 FIRE CONTROL OFFICER Vomiting Home Meds: Home Meds Aspirin [Halfprin] 1 tab PO DAILY 07/03/16 [History] Omeprazole 40 mg PO ACBREAKFAST 07/03/16 [History] metFORMIN [Glucophage XR] 1,000 mg PO BIDMEALS 07/03/16 [History] Acetaminophen 500 mg PO Q6H PRN 07/01/21 [History] Apixaban [Eliquis] 5 mg PO BID 07/01/21 [History] Beta-Carotene(A) w/C & E/Min [Prosight] 1 tab PO DAILY 07/01/21 [History] Cyanocobalamin (Vitamin B12) [Vitamin B13] 500 mcg PO DAILY 07/01/21 [History] Fenofibrate 160 mg PO BEDTIME 07/01/21 [History] Insulin Aspart [NovoLOG] 15 unit SQ TIDMEALS 07/01/21 [History] Losartan Potassium 25 mg PO BEDTIME 07/01/21 [History] Metoprolol Tartrate 50 mg PO BID 07/01/21 [History] Multivitamin [Multiple Vitamins] 1 each PO DAILY 07/01/21 [History] Rosuvastatin Calcium 40 mg PO DAILY 07/01/21 [History] Insulin Glargine,Hum.Rec.Anlog [Basaglar Kwikpen U-100] 45 unit SQ BEDTIME 08/18/21 [History] Diltiazem [Cardizem CD] 120 mg PO DAILY 30 Days #30 cap.er 08/19/21 [Rx] Icosapent Ethyl [Vascepa] 1 gm PO BIDMEALS 09/12/21 [History] Past Medical History HEENT History: Reports: Impaired Vision Cardiovascular History: Reports: Afib, High Cholesterol, Hypertension Respiratory History: Reports: None Gastrointestinal History: Reports: GERD, Pancreatitis Genitourinary History: Reports: Urinary Incontinence, UTI, Recurrent Musculoskeletal History: Reports: Back Pain, Chronic, Fracture Neurological History: Reports: Migraines Endocrine/Metabolic History: Reports: Diabetes, Type II, Obesity/BMI 30+ Hematologic History: Reports: Anemia, Blood Transfusion(s) Immunologic History: Reports: None Oncologic (Cancer) History: Reports: None Dermatologic History: Reports: None - Infectious Disease History Infectious Disease History: Reports: Chicken Pox - Past Surgical History Head Surgeries/Procedures: Reports: None HEENT Surgical History: Reports: Adenoidectomy, Eye Surgery, Oral Surgery, Tonsillectomy Cardiovascular Surgical History: Reports: None Respiratory Surgical History: Reports: None GI Surgical History: Reports: Cholecystectomy, Colonoscopy, EGD, Polypectomy Female Surgical History: Reports: Other (See Below) Other Female Surgeries/Procedures: bladder surgery when young Endocrine Surgical History: Reports: None Neurological Surgical History: Reports: None Musculoskeletal Surgical History: Reports: None Oncologic Surgical History: Reports: None Dermatological Surgical History: Reports: None Social & Family History - Family History Family Medical History: No Pertinent Family History - Tobacco Use Tobacco Use Status *Q: Never Tobacco User - Caffeine Use Caffeine Use: Reports: None - Recreational Drug Use Recreational Drug Use: No ED ROS GENERAL - Review of Systems Review Of Systems: See Below Constitutional: Reports: No Symptoms HEENT: Reports: No Symptoms Respiratory: Reports: No Symptoms Cardiovascular: Reports: Palpitations. Denies: Chest Pain Endocrine: Reports: High Glucose GI/Abdominal: Reports: No Symptoms : Reports: No Symptoms Musculoskeletal: Reports: No Symptoms Skin: Reports: No Symptoms Neurological: Reports: No Symptoms Psychiatric: Reports: No Symptoms Hematologic/Lymphatic: Reports: No Symptoms Immunologic: Reports: No Symptoms ED EXAM, GENERAL - Physical Exam Exam: See Below Exam Limited By: No Limitations General Appearance: Alert, No Apparent Distress, Obese Eye Exam: Bilateral Eye: EOMI Ears: Hearing Grossly Normal Nose: Normal Inspection Throat/Mouth: Normal Inspection, Normal Voice, No Airway Compromise Head: Atraumatic, Normocephalic Neck: Normal Inspection, Supple, Non-Tender, Full Range of Motion Respiratory/Chest: No Respiratory Distress, Lungs Clear, Normal Breath Sounds, No Accessory Muscle Use, Chest Non-Tender Cardiovascular: Tachycardia, Irregularly Irregular Peripheral Pulses: 1+: Carotid (L), Carotid (R), Dorsalis Pedis (L), Dorsalis Pedis (R) GI/Abdominal: Soft, Non-Tender Back Exam: Normal Inspection Extremities: Normal Inspection, No Pedal Edema Neurological: Alert, Oriented, No Motor/Sensory Deficits Psychiatric: Normal Affect, Normal Mood Skin Exam: Warm, Dry, Intact, Normal Color, No Rash Lymphatic: No Adenopathy #1 Interpretation EKG Date: 09/12/21 Time: 02:30 Rhythm: Other (Fib with rapid ventricular response) Rate (Beats/Min): 160 P-Wave: Variable QRS: Normal ST-T: Other (ST and T wave abnormality consider ischemia or digitalis effect) QT: Normal Comparison: Change From Previous EKG EKG Interpretation Comments: Atrial fibrillation with RVR. ST and T wave abnormality, consider inferior ischemia or digitalis effect. Abnormal ECG Course - Vital Signs Last Recorded V/S: Last Vital Signs Temp 97.4 F 09/12/21 01:12 FIRE CONTROL OFFICER Pulse 128 H 09/12/21 03:00 Resp 24 H 09/12/21 03:00 BP 111/73 09/12/21 03:00 Pulse Ox 95 09/12/21 03:00 - Orders/Labs/Meds Orders: Active Orders 24 hr Category Date Time Status Diltiazem 125 mg Med 09/12/21 02:45 Active Sodium Chloride 0.9% [Normal Saline] 100 ml IV TITRATE Medication Orders Diltiazem HCl 125 mg/ Sodium (Chloride) 125 mls @ 5 mls/hr IV TITRATE SHIRLEY; Protocol Last Admin: 09/12/21 02:58 Dose: 5 mg/hr, 5 mls/hr Documented by: BRENNA Labs: Laboratory Tests 09/12/21 09/12/21 Range/Units 01:40 FIRE CONTROL OFFICER 01:40 FIRE CONTROL OFFICER WBC 5.44 (5.00-10.00) 10^3/uL RBC 4.56 (3.80-5.50) 10^6/uL Hgb 11.0 L (12.0-16.0) g/dL Hct 35.5 L (37.0-47.0) % MCV 77.9 L (82.0-92.0) fL MCH 24.1 L (27.0-31.0) pg MCHC 31.0 L (32.0-36.0) g/dL RDW 16.0 H (11.5-14.5) % Plt Count 277 (150-400) 10^3/uL MPV 9.7 (7.4-10.4) fL Immature Gran % (Auto) 0.4 (0.0-5.0) % Neut % (Auto) 63.2 (50.0-70.0) % Lymph % (Auto) 24.6 (20.0-40.0) % [place] % (Auto) 10.8 H (2.0-8.0) % Eos % (Auto) 0.6 L (1.0-3.0) % Baso % (Auto) 0.4 (0.0-1.0) % Neut # (Auto) 3.44 (2.50-7.00) 10^3/uL Lymph # (Auto) 1.34 (1.00-4.00) 10^3/uL [place] # (Auto) 0.59 (0.10-0.80) 10^3/uL Eos # (Auto) 0.03 L (0.10-0.30) 10^3/uL Baso # (Auto) 0.02 (0.00-0.10) 10^3/uL Immature Gran # (Auto) 0.02 (0.00-0.50) 10^3/uL Sodium 141 (136-145) mmol/L Potassium 4.6 (3.5-5.1) mmol/L Chloride 104 (98-107) mmol/L Carbon Dioxide 22.8 (21.0-32.0) mmol/L Anion Gap 18.8 H (5-15) mmol/L BUN 18 (7-18) mg/dL Creatinine 0.63 (0.51-1.17) mg/dL Est Cr Clr Drug Dosing 89.31 mL/min Estimated GFR (MDRD) > 60 mL/min Glucose 288 H (70-140) mg/dL Calcium 9.1 (8.7-10.3) mg/dL Meds: Medications Generic Name Dose Route Start Last Admin Trade Name Freq PRN Reason Stop Dose Admin Diltiazem HCl 125 mg/ Sodium 125 mls @ 5 mls/hr 09/12/21 02:45 09/12/21 02:58 Chloride IV 5 mg/hr TITRATE SHIRLEY 5 mls/hr Administration Protocol 5 MG/HR Discontinued Medications Generic Name Dose Route Start Last Admin Trade Name Freq PRN Reason Stop Dose Admin Diltiazem HCl 15 mg 09/12/21 01:49 FIRE CONTROL OFFICER 09/12/21 01:54 FIRE CONTROL OFFICER Diltiazem 25 Mg/5 Ml Sdv IVPUSH 09/12/21 01:50 FIRE CONTROL OFFICER 15 mg ONETIME ONE Administration Diltiazem HCl 25 mg 09/12/21 02:26 09/12/21 02:28 Diltiazem 25 Mg/5 Ml Sdv IVPUSH 09/12/21 02:27 25 mg ONETIME ONE Administration Diltiazem HCl 15 mg 09/12/21 03:16 09/12/21 03:18 Diltiazem 25 Mg/5 Ml Sdv IVPUSH 09/12/21 03:17 15 mg ONETIME ONE Administration Sodium Chloride 1,000 mls @ 999 mls/hr 09/12/21 01:49 FIRE CONTROL OFFICER 09/12/21 01:59 FIRE CONTROL OFFICER Normal Saline IV 09/12/21 02:49 999 mls/hr .BOLUS ONE Administration Sodium Chloride Confirm 09/12/21 01:51 FIRE CONTROL OFFICER 09/12/21 02:00 Normal Saline Administered 09/12/21 01:52 FIRE CONTROL OFFICER Not Given Dose 1,000 mls @ as directed .ROUTE .STK-MED ONE Lorazepam 2 mg 09/12/21 01:59 FIRE CONTROL OFFICER 09/12/21 02:02 Lorazepam 2 Mg/Ml Sdv IVPUSH 09/12/21 02:00 1 mg ONETIME ONE Administration - Re-Assessments/Exams Free Text/Narrative Re-Assessment/Exam: 09/12/21 03:37 Patient is a resting comfortably. She was given initially 15 mg Cardizem, followed by 20 mg 15 minutes later of Cardizem and an additional 15 mg Cardizem and began on a 5 mg an hour drip. Her rate has been variable. Initially she was at 160 bpm and is currently maintaining between 110 and 125 Departure - Departure Time of Disposition: 04:13 Disposition: Admitted As Inpatient 65 Condition: Fair Clinical Impression: Atrial fibrillation with rapid ventricular response Sepsis Event Note (ED) - Evaluation Sepsis Screening Result: No Definite Risk - Focused Exam Vital Signs: Vital Signs Temp Pulse Resp BP Pulse Ox 09/12/21 03:00 128 H 24 H 111/73 95 09/12/21 02:45 118 H 27 H 101/60 94 L 09/12/21 02:36 102 H 20 102/44 L 94 L 09/12/21 02:23 142 H 22 H 122/57 L 95 09/12/21 02:00 130 H 15 105/64 96 09/12/21 01:47 FIRE CONTROL OFFICER 145 H 19 94/58 L 96 09/12/21 01:12 FIRE CONTROL OFFICER 97.4 F 167 H 16 123/78 96 09/12/21 01:31 CDT 151 H 18 118/57 L 97 09/12/21 01:16 CDT 160 H 19 100/54 L 98 - My Orders Last 24 Hours: My Active Orders 09/12/21 02:45 Diltiazem 125 mg Sodium Chloride 0.9% [Normal Saline] 100 ml IV TITRATE - Assessment/Plan Admission H&P: Please use this note as an admission H&P Last 24 Hours: My Active Orders 09/12/21 02:45 Diltiazem 125 mg Sodium Chloride 0.9% [Normal Saline] 100 ml IV TITRATE Assessment:: Recurrent episodes of atrial fibrillation. Currently atrial fibrillation with RVR. Patient was given Cardizem 15mg,20mg, 15mg. And a drip was started at 5 mg an hour. Plan: Admit inpatient to telemetry. We will continue with Cardizem drip at 15 mg an hour.
[2021-09-12] MEDS ORDERED: Ondansetron 4 MG Tab.DIS PO PRN (03:56)
[2021-09-12] MEDS ORDERED: Acetaminophen 325 MG Tab PO PRN (03:56)
[2021-09-12] MEDS ORDERED: Docusate Sodium 100 MG Cap PO PRN (03:56)
[2021-09-12] MEDS ORDERED: 50% Dextrose in Water 50 ML Syringe IVPUSH PRN (04:03)
[2021-09-12] MEDS ORDERED: Acetaminophen 500 MG Tab PO PRN (04:03)
[2021-09-12] MEDS ORDERED: Glucagon,Human Recombinant 1 MG Vial IM PRN (04:03)
[2021-09-12] MEDS ORDERED: Non-Formulary Medication 1 Each (Omeprazole [Omeprazole] 20 MG Cap.Cr) PO SCH (07:30)
[2021-09-12] MEDS ORDERED: MULTIVITAMIN PO SCH (09:00)
[2021-09-12] MEDS ORDERED: [UNRECOGNIZED DRUG - OTHER] PO SCH (09:00)
[2021-09-12] MEDS ORDERED: Non-Formulary Medication 1 Each (Rosuvastatin Calcium [Rosuvastatin Calcium] 40 MG Tablet) PO SCH (09:00)
[2021-09-12] MEDS: Insulin Aspart 100 Units/ML 3 ML Pen SUBCUT SCH ×3 (09:41→17:57)
[2021-09-12] MEDS: metFORMIN 500 MG Tab.ER PO SCH ×2 (09:43→17:57)
[2021-09-12] MEDS: Apixaban 5 MG Tab PO SCH ×2 (09:43→20:41)
[2021-09-12] MEDS: Cyanocobalamin (Vitamin B12) 500 MCG Tab PO SCH (09:43)
[2021-09-12] MEDS: Aspirin 81 MG Tab.EC PO SCH (09:43)
[2021-09-12] MEDS: Diltiazem 120 MG Cap.CD PO SCH (10:16)
[2021-09-12] MEDS: Metoprolol Tartrate 50 MG Tab PO SCH ×2 (10:16→20:41)
[2021-09-12] MEDS: Lutein/Minerals/Vitamins A, C & E Tab PO SCH (11:54)
[2021-09-12] MEDS: Multivitamins with Minerals/Iron/Folic Acid/Lycopene Tab PO SCH (11:54)
[2021-09-12] MEDS: Rosuvastatin 10 MG Tab PO SCH (11:55)
--- NOTE | 2021-09-12 12:19 | PCM.PN ---
- General Info Date of Service: 09/12/21 Admission Dx/Problem (Free Text): Atrial fibrillation with RVR. - Review of Systems Systems Review Comment:: Samanta was admitted earlier this morning after come to the ER with palpitations. She has a hx of paroxysmal a-fib. She as cardioverted in February and again in April. After the April event she was started on Eliquis mg PO BID. She was hospitalized 07/01 for a-fib with RVR and spontaneously converted in less than 24 hours on a diltiazem drip. She was again hospitalized on 08/18 for 24 hours and again, converted with a diltiazem drip. She is on metoprolol ER 50 mg PO daily and Diltiazem CD 120 mg PO daily as an outpatient. She notes her episodes usually occur at night when she is sleeping. Cardiology recommended a sleep kj dy and this has been ordered but not yet performed. She notes that around 1AM on the morning of admission she woke up with palpitations. She tried doing valsalva with no improvement and presented to the ER. She was in A-fib with RVR with a rate in the 160's. Her BP is very sensitive to diltiazem drip and she has been running 80's - 110's systolic on 15 mL/hour of diltiazem. She is very tired on rounds this AM. HR is variable between 108 - 150's. She has been on the drip for nearly 10 hours with not much improvement. She is not SOB, no chest pain. COVID negative. - Patient Data Vitals - Most Recent: Last Vital Signs Temp 96.5 F L 09/12/21 11:00 Pulse 118 H 09/12/21 11:00 Resp 24 H 09/12/21 11:00 BP 101/72 09/12/21 11:00 Pulse Ox 95 09/12/21 11:00 Weight - Most Recent: 230 lb Lab Results Last 24 Hours: Laboratory Results - last 24 hr 09/12/21 09/12/21 09/12/21 Range/Units 01:40 [employer] 01:40 [employer] 01:40 [employer] WBC 5.44 (5.00-10.00) 10^3/uL RBC 4.56 (3.80-5.50) 10^6/uL Hgb 11.0 L (12.0-16.0) g/dL Hct 35.5 L (37.0-47.0) % MCV 77.9 L (82.0-92.0) fL MCH 24.1 L (27.0-31.0) pg MCHC 31.0 L (32.0-36.0) g/dL RDW 16.0 H (11.5-14.5) % Plt Count 277 (150-400) 10^3/uL MPV 9.7 (7.4-10.4) fL Immature Gran % (Auto) 0.4 (0.0-5.0) % Neut % (Auto) 63.2 (50.0-70.0) % Lymph % (Auto) 24.6 (20.0-40.0) % Hopkins % (Auto) 10.8 H (2.0-8.0) % Eos % (Auto) 0.6 L (1.0-3.0) % Baso % (Auto) 0.4 (0.0-1.0) % Neut # (Auto) 3.44 (2.50-7.00) 10^3/uL Lymph # (Auto) 1.34 (1.00-4.00) 10^3/uL Hopkins # (Auto) 0.59 (0.10-0.80) 10^3/uL Eos # (Auto) 0.03 L (0.10-0.30) 10^3/uL Baso # (Auto) 0.02 (0.00-0.10) 10^3/uL Immature Gran # (Auto) 0.02 (0.00-0.50) 10^3/uL Sodium 141 (136-145) mmol/L Potassium 4.6 (3.5-5.1) mmol/L Chloride 104 (98-107) mmol/L Carbon Dioxide 22.8 (21.0-32.0) mmol/L Anion Gap 18.8 H (5-15) mmol/L BUN 18 (7-18) mg/dL Creatinine 0.63 (0.51-1.17) mg/dL Est Cr Clr Drug Dosing 89.31 mL/min Estimated GFR (MDRD) > 60 mL/min Glucose 288 H (70-140) mg/dL POC Glucose (70-140) mg/dL Calcium 9.1 (8.7-10.3) mg/dL Troponin I High Sens 14.600 (0-51.000) pg/mL SARS CoV-2 RNA Rapid PHILIP (NEGATIVE) 09/12/21 09/12/21 Range/Units 03:55 09:40 WBC (5.00-10.00) 10^3/uL RBC (3.80-5.50) 10^6/uL Hgb (12.0-16.0) g/dL Hct (37.0-47.0) % MCV (82.0-92.0) fL MCH (27.0-31.0) pg MCHC (32.0-36.0) g/dL RDW (11.5-14.5) % Plt Count (150-400) 10^3/uL MPV (7.4-10.4) fL Immature Gran % (Auto) (0.0-5.0) % Neut % (Auto) (50.0-70.0) % Lymph % (Auto) (20.0-40.0) % Hopkins % (Auto) (2.0-8.0) % Eos % (Auto) (1.0-3.0) % Baso % (Auto) (0.0-1.0) % Neut # (Auto) (2.50-7.00) 10^3/uL Lymph # (Auto) (1.00-4.00) 10^3/uL Hopkins # (Auto) (0.10-0.80) 10^3/uL Eos # (Auto) (0.10-0.30) 10^3/uL Baso # (Auto) (0.00-0.10) 10^3/uL Immature Gran # (Auto) (0.00-0.50) 10^3/uL Sodium (136-145) mmol/L Potassium (3.5-5.1) mmol/L Chloride (98-107) mmol/L Carbon Dioxide (21.0-32.0) mmol/L Anion Gap (5-15) mmol/L BUN (7-18) mg/dL Creatinine (0.51-1.17) mg/dL Est Cr Clr Drug Dosing mL/min Estimated GFR (MDRD) mL/min Glucose (70-140) mg/dL POC Glucose 192 H (70-140) mg/dL Calcium (8.7-10.3) mg/dL Troponin I High Sens (0-51.000) pg/mL SARS CoV-2 RNA Rapid PHILIP Negative (NEGATIVE) Med Orders - Current: Current Medications Acetaminophen (Acetaminophen 325 Mg Tab) 650 mg PO Q4H PRN PRN Reason: Pain (Mild 1-3)/fever Acetaminophen (Acetaminophen 500 Mg Tab) 500 mg PO Q6H PRN PRN Reason: Pain Apixaban (Apixaban 5 Mg Tab) 5 mg PO BID [facility] Last Admin: 09/12/21 09:43 Dose: 5 mg Documented by: Aspirin (Aspirin 81 Mg Tab.Ec) 81 mg PO DAILY [facility] Last Admin: 09/12/21 09:43 Dose: 81 mg Documented by: Cyanocobalamin (Cyanocobalamin (Vitamin B12) 500 Mcg Tab) 500 mcg PO DAILY [facility] Last Admin: 09/12/21 09:43 Dose: 500 mcg Documented by: Dextrose/Water (50% Dextrose In Water 50 Ml Syringe) 50 ml IVPUSH ASDIRECTED PRN PRN Reason: Hypoglycemia Diltiazem HCl (Diltiazem 120 Mg Cap.Cd) 120 mg PO DAILY [facility] Last Admin: 09/12/21 10:16 Dose: Not Given Documented by: Docusate Sodium (Docusate Sodium 100 Mg Cap) 100 mg PO BID PRN PRN Reason: Constipation Glucagon (Glucagon,Human Recombinant 1 Mg Vial) 1 mg IM ASDIRECTED PRN PRN Reason: Hypoglycemia Diltiazem HCl 125 mg/ Sodium (Chloride) 125 mls @ 5 mls/hr IV TITRATE [facility]; Protocol Last Admin: 09/12/21 11:37 Dose: 15 mg/hr, 15 mls/hr Documented by: Insulin Aspart (Insulin Aspart 100 Units/Ml 3 Ml Pen) 15 unit SUBCUT TIDMEALS [facility] Last Admin: 09/12/21 12:10 Dose: 15 units Documented by: Insulin Glargine (Insulin Glargine,Hum.Rec.Anlog 100 Unit/Ml 3 Ml Pen) 45 unit SUBCUT BEDTIME [facility] Losartan Potassium (Losartan 25 Mg Tab) 25 mg PO BEDTIME [facility] Metformin HCl (Metformin 500 Mg Tab.Er) 1,000 mg PO BIDMEALS [facility] Last Admin: 09/12/21 09:43 Dose: 1,000 mg Documented by: Metoprolol Tartrate (Metoprolol Tartrate 50 Mg Tab) 50 mg PO BID [facility] Last Admin: 09/12/21 10:16 Dose: Not Given Documented by: Multivitamins/Minerals (Lutein/Minerals/Vitamins A, C & E Tab) 1 each PO DAILY [facility] Last Admin: 09/12/21 11:54 Dose: 1 each Documented by: Multivitamins/Minerals (Multivitamins With Minerals/Iron/Folic Acid/Lycopene Tab) 1 tab PO DAILY [facility] Last Admin: 09/12/21 11:54 Dose: 1 tab Documented by: Ondansetron HCl (Ondansetron 4 Mg Tab.Dis) 4 mg PO Q6H PRN PRN Reason: nausea, able to take PO Pantoprazole Sodium (Pantoprazole 40 Mg Tab.Cr) 40 mg PO ACBREAKFAST [facility] Patient Own Medication (Patient's Own Medication 1 Each) 1 each PO BEDTIME [facility] Patient Own Medication (Patient's Own Medication 1 Each) 1 each PO BIDMEALS [facility] Rosuvastatin Calcium (Rosuvastatin 10 Mg Tab) 40 mg PO DAILY [facility] Last Admin: 09/12/21 11:55 Dose: 40 mg Documented by: Discontinued Medications Diltiazem HCl (Diltiazem 25 Mg/5 Ml Sdv) 15 mg IVPUSH ONETIME ONE Stop: 09/12/21 01:50 [employer] Last Admin: 09/12/21 01:54 [employer] Dose: 15 mg Documented by: Diltiazem HCl (Diltiazem 25 Mg/5 Ml Sdv) 25 mg IVPUSH ONETIME ONE Stop: 09/12/21 02:27 Last Admin: 09/12/21 02:28 Dose: 25 mg Documented by: Diltiazem HCl (Diltiazem 25 Mg/5 Ml Sdv) 15 mg IVPUSH ONETIME ONE Stop: 09/12/21 03:17 Last Admin: 09/12/21 03:18 Dose: 15 mg Documented by: Sodium Chloride (Normal Saline) 1,000 mls @ 999 mls/hr IV .BOLUS ONE Stop: 09/12/21 02:49 Last Admin: 09/12/21 01:59 [employer] Dose: 999 mls/hr Documented by: Sodium Chloride (Normal Saline) Confirm Administered Dose 1,000 mls @ as directed .ROUTE .STK-MED ONE Stop: 09/12/21 01:52 [employer] Last Admin: 09/12/21 02:00 Dose: Not Given Documented by: Lorazepam (Lorazepam 2 Mg/Ml Sdv) 2 mg IVPUSH ONETIME ONE Stop: 09/12/21 02:00 Last Admin: 09/12/21 02:02 Dose: 1 mg Documented by: Non-Formulary Medication (Beta-Carotene(A) W/C & E/Min [Prosight]) 1 tab PO DAILY [facility] Non-Formulary Medication (Fenofibrate [Fenofibrate]) 160 mg PO BEDTIME [facility] Non-Formulary Medication (Icosapent Ethyl [Vascepa]) 1 gm PO BIDMEALS [facility] Non-Formulary Medication (Insulin Glargine,Hum.Rec.Anlog) 45 unit SQ BEDTIME [facility] Non-Formulary Medication (Multivitamin [Multiple Vitamins]) 1 each PO DAILY [facility] Non-Formulary Medication (Omeprazole [Omeprazole]) 40 mg PO ACBREAKFAST [facility] Non-Formulary Medication (Rosuvastatin Calcium [Rosuvastatin Calcium]) 40 mg PO DAILY [facility] - Exam General: Alert, Oriented, Cooperative, No Acute Distress, Other (Yawns frequently) Lungs: Clear to Auscultation, Normal Respiratory Effort Cardiovascular: Irregular Rhythm, Tachycardia GI/Abdominal Exam: Normal Bowel Sounds Extremities: No Pedal Edema - Patient Data Lab Results Last 24 hrs: Laboratory Results - last 24 hr 09/12/21 09/12/21 09/12/21 Range/Units 01:40 [employer] 01:40 [employer] 01:40 [employer] WBC 5.44 (5.00-10.00) 10^3/uL RBC 4.56 (3.80-5.50) 10^6/uL Hgb 11.0 L (12.0-16.0) g/dL Hct 35.5 L (37.0-47.0) % MCV 77.9 L (82.0-92.0) fL MCH 24.1 L (27.0-31.0) pg MCHC 31.0 L (32.0-36.0) g/dL RDW 16.0 H (11.5-14.5) % Plt Count 277 (150-400) 10^3/uL MPV 9.7 (7.4-10.4) fL Immature Gran % (Auto) 0.4 (0.0-5.0) % Neut % (Auto) 63.2 (50.0-70.0) % Lymph % (Auto) 24.6 (20.0-40.0) % Hopkins % (Auto) 10.8 H (2.0-8.0) % Eos % (Auto) 0.6 L (1.0-3.0) % Baso % (Auto) 0.4 (0.0-1.0) % Neut # (Auto) 3.44 (2.50-7.00) 10^3/uL Lymph # (Auto) 1.34 (1.00-4.00) 10^3/uL Hopkins # (Auto) 0.59 (0.10-0.80) 10^3/uL Eos # (Auto) 0.03 L (0.10-0.30) 10^3/uL Baso # (Auto) 0.02 (0.00-0.10) 10^3/uL Immature Gran # (Auto) 0.02 (0.00-0.50) 10^3/uL Sodium 141 (136-145) mmol/L Potassium 4.6 (3.5-5.1) mmol/L Chloride 104 (98-107) mmol/L Carbon Dioxide 22.8 (21.0-32.0) mmol/L Anion Gap 18.8 H (5-15) mmol/L BUN 18 (7-18) mg/dL Creatinine 0.63 (0.51-1.17) mg/dL Est Cr Clr Drug Dosing 89.31 mL/min Estimated GFR (MDRD) > 60 mL/min Glucose 288 H (70-140) mg/dL POC Glucose (70-140) mg/dL Calcium 9.1 (8.7-10.3) mg/dL Troponin I High Sens 14.600 (0-51.000) pg/mL SARS CoV-2 RNA Rapid PHILIP (NEGATIVE) 09/12/21 09/12/21 Range/Units 03:55 09:40 WBC (5.00-10.00) 10^3/uL RBC (3.80-5.50) 10^6/uL Hgb (12.0-16.0) g/dL Hct (37.0-47.0) % MCV (82.0-92.0) fL MCH (27.0-31.0) pg MCHC (32.0-36.0) g/dL RDW (11.5-14.5) % Plt Count (150-400) 10^3/uL MPV (7.4-10.4) fL Immature Gran % (Auto) (0.0-5.0) % Neut % (Auto) (50.0-70.0) % Lymph % (Auto) (20.0-40.0) % Hopkins % (Auto) (2.0-8.0) % Eos % (Auto) (1.0-3.0) % Baso % (Auto) (0.0-1.0) % Neut # (Auto) (2.50-7.00) 10^3/uL Lymph # (Auto) (1.00-4.00) 10^3/uL Hopkins # (Auto) (0.10-0.80) 10^3/uL Eos # (Auto) (0.10-0.30) 10^3/uL Baso # (Auto) (0.00-0.10) 10^3/uL Immature Gran # (Auto) (0.00-0.50) 10^3/uL Sodium (136-145) mmol/L Potassium (3.5-5.1) mmol/L Chloride (98-107) mmol/L Carbon Dioxide (21.0-32.0) mmol/L Anion Gap (5-15) mmol/L BUN (7-18) mg/dL Creatinine (0.51-1.17) mg/dL Est Cr Clr Drug Dosing mL/min Estimated GFR (MDRD) mL/min Glucose (70-140) mg/dL POC Glucose 192 H (70-140) mg/dL Calcium (8.7-10.3) mg/dL Troponin I High Sens (0-51.000) pg/mL SARS CoV-2 RNA Rapid PHILIP Negative (NEGATIVE) Result Diagrams: 09/12/21 01:40 [employer] 09/12/21 01:40 [employer] Sepsis Event Note - Evaluation Sepsis Screening Result: No Definite Risk - Focused Exam Vital Signs: Vital Signs Temp Pulse Pulse Resp BP BP Pulse Ox 09/12/21 11:00 96.5 F L 118 H 24 H 101/72 95 09/12/21 10:16 125 H 91/72 09/12/21 10:00 108/67 09/12/21 09:45 96/57 L 09/12/21 09:30 107/68 09/12/21 09:15 116/47 L 09/12/21 09:00 111/66 09/12/21 08:45 99/54 L 09/12/21 08:30 88/59 L 09/12/21 08:15 109/85 09/12/21 08:00 97/50 L 09/12/21 07:23 113 H 102/64 09/12/21 07:00 132 H 118/45 L 09/12/21 06:45 110 H 118/61 09/12/21 06:34 145 H 115/60 09/12/21 06:21 112 H 105/56 L 09/12/21 06:15 114 H 91/61 09/12/21 06:00 133 H 120/62 09/12/21 05:45 108 H 103/65 09/12/21 05:30 110 H 103/62 09/12/21 05:15 144 H 117/85 09/12/21 05:01 116 H 116/59 L 09/12/21 04:26 97.1 F 143 H 23 H 158/75 H 96 09/12/21 04:15 97 F 127 H 24 H 149/65 H 96 09/12/21 04:00 131 H 20 141/93 H 97 09/12/21 03:56 09/12/21 03:47 123 H 18 126/84 98 09/12/21 03:31 135 H 19 135/80 96 09/12/21 03:20 129 H 26 H 133/85 95 09/12/21 03:00 128 H 24 H 111/73 95 09/12/21 02:45 118 H 27 H 101/60 94 L 09/12/21 02:36 102 H 20 102/44 L 94 L 09/12/21 02:23 142 H 22 H 122/57 L 95 09/12/21 02:00 130 H 15 105/64 96 09/12/21 01:47 [employer] 145 H 19 94/58 L 96 09/12/21 01:12 [employer] 97.4 F 167 H 16 123/78 96 09/12/21 01:31 CDT 151 H 18 118/57 L 97 09/12/21 01:16 CDT 160 H 19 100/54 L 98 Pulse Ox 09/12/21 11:00 09/12/21 10:16 09/12/21 10:00 09/12/21 09:45 09/12/21 09:30 09/12/21 09:15 09/12/21 09:00 09/12/21 08:45 09/12/21 08:30 09/12/21 08:15 09/12/21 08:00 09/12/21 07:23 09/12/21 07:00 09/12/21 06:45 09/12/21 06:34 09/12/21 06:21 09/12/21 06:15 09/12/21 06:00 09/12/21 05:45 09/12/21 05:30 09/12/21 05:15 09/12/21 05:01 09/12/21 04:26 09/12/21 04:15 09/12/21 04:00 09/12/21 03:56 94 L 09/12/21 03:47 09/12/21 03:31 09/12/21 03:20 09/12/21 03:00 09/12/21 02:45 09/12/21 02:36 09/12/21 02:23 09/12/21 02:00 09/12/21 01:47 [employer] 09/12/21 01:12 [employer] 09/12/21 01:31 CDT 09/12/21 01:16 CDT - Problem List Review Problem List Initiated/Reviewed/Updated: Yes - My Orders Last 24 Hours: My Active Orders 09/12/21 10:30 FA/Lycopene/Lut/MV,Ca,Iron,Min [Centrum] 1 tab PO DAILY Lutein/Minerals/Vit A,C & E [Ocuvite] 1 each PO DAILY Rosuvastatin [Crestor] 40 mg PO DAILY 09/12/21 18:00 Patient's Own Medication [Ptom] 1 each PO BIDMEALS 09/12/21 21:00 Insulin Glargine,Hum.Rec.Anlog [Semglee Pen] 45 unit SUBCUT BEDTIME Patient's Own Medication [Ptom] 1 each PO BEDTIME 09/13/21 05:11 BASIC METABOLIC PANEL,BMP [CHEM] AM CBC WITH AUTO DIFF [HEME] AM T4 FREE [CHEM] AM TSH ULTRASENSITIVE [CHEM] AM 09/13/21 07:30 Pantoprazole [ProTONIX] 40 mg PO ACBREAKFAST 09/14/21 05:11 BASIC METABOLIC PANEL,BMP [CHEM] AM CBC WITH AUTO DIFF [HEME] AM 09/15/21 05:11 BASIC METABOLIC PANEL,BMP [CHEM] AM CBC WITH AUTO DIFF [HEME] AM - Assessment Assessment:: Admission Diagnosis: A-fib with RVR - Continue diltiazem drip to keep HR <110 - Hold metoprolol due to hypotension - Hold Cardizem PO due to hypotension - Will start Digoxin load 09/12/2021 based on lean body weight (dose confirmed with pharmacy) - 300 mcg IV x 1 followed by 150 mcg IV after 6 hours, repeat 150 mcg IV after another 6 hours - NS bolus while digoxin loading due to hypotension - Telemetry Secondary Diagnoses: Diabetes Mellitus Type 2, Insulin dependent - Basaglar 45 units daily (formulary sub Semglee) - Insulin Aspart 15 units TID AC - Metformin 1,000 mg PO BID - Accuchecks Acid Reflux - Omeprazole 40 mg PO daily (formulary sub pantoprazole) HTN - Losartan 25 mg PO daily (hold due to hypotension) Hyperlipidemia - Fenofibrate 160 mg PO daily - Rosuvastatin 40 mg PO daily - Vascepa 1,000 mg, take 2 tabs PO BID (hold while inpatient) Nutritional Supplement - MVI 1 tab PO daily - Vit B12 500 mcg PO daily CODE STATUS: Full Code
[2021-09-12] MEDS ORDERED: Digoxin 500 MCG/2 ML Amp IVPUSH ONE ×2 (12:25→13:00)
[2021-09-12] MEDS ORDERED: Digoxin 500 MCG/2 ML Amp ONE (12:49)
[2021-09-12] MEDS ORDERED: diphenhydrAMINE 50 MG/ML SDV IVPUSH SCH (14:00)
[2021-09-12] MEDS ORDERED: Patient's Own Medication 1 Each PO SCH ×2 (18:00→21:00)
[2021-09-12] MEDS ORDERED: Digoxin 500 MCG/2 ML Amp IVPUSH SCH (18:30)
[2021-09-12] MEDS: Digoxin 500 MCG/2 ML Amp IVPUSH SCH (19:05)
[2021-09-12] MEDS ORDERED: Non-Formulary Medication 1 Each (Insulin Glargine,Hum.Rec.Anlog 100 UNIT/ML Insuln.Pen) SQ SCH (21:00)
[2021-09-12] MEDS ORDERED: Insulin Glargine,Hum.Rec.Anlog 100 UNIT/ML 3 ML Pen SUBCUT SCH (21:00)
[2021-09-12] MEDS ORDERED: Non-Formulary Medication 1 Each (Fenofibrate [Fenofibrate] 160 MG Tablet) PO SCH (21:00)
[2021-09-12] MEDS ORDERED: Losartan 25 MG Tab PO SCH (21:00)
[2021-09-13] MEDS: Digoxin 500 MCG/2 ML Amp IVPUSH SCH (00:57)
[2021-09-13] MEDS ORDERED: Pantoprazole 40 MG Tab.CR PO SCH (07:30)
[2021-09-13] MEDS: Rosuvastatin 10 MG Tab PO SCH (08:14)
[2021-09-13] MEDS: Aspirin 81 MG Tab.EC PO SCH (08:15)
[2021-09-13] MEDS: metFORMIN 500 MG Tab.ER PO SCH (08:15)
[2021-09-13] MEDS: Apixaban 5 MG Tab PO SCH (08:15)
[2021-09-13] MEDS: Metoprolol Tartrate 50 MG Tab PO SCH (08:16)
[2021-09-13] MEDS: Multivitamins with Minerals/Iron/Folic Acid/Lycopene Tab PO SCH (08:16)
[2021-09-13 08:17] VITALS: BP 119/66
[2021-09-13] MEDS: Diltiazem 120 MG Cap.CD PO SCH (08:17)
[2021-09-13] MEDS: Lutein/Minerals/Vitamins A, C & E Tab PO SCH (08:18)
[2021-09-13] MEDS: Cyanocobalamin (Vitamin B12) 500 MCG Tab PO SCH (08:18)
[2021-09-13] MEDS: Insulin Aspart 100 Units/ML 3 ML Pen SUBCUT SCH (08:18)
[2021-09-13 08:35] LABS: ANION GAP 15.8 mmol/L (5-15); CHLORIDE,CL 104 mmol/L (98-107); SODIUM,NA 140 mmol/L (136-145)
--- NOTE | 2021-09-13 09:19 | PCM.DCSUM1 ---
Discharge Summary - Hospital Course Free Text/Narrative:: Admission Date: 09/12/2021 Discharge Date: 09/13/2021 Admission Diagnosis: Atrial fibrillation with RVR Discharge Diagnosis: Atrial fibrillation with RVR, converted to NSR with diltiazem drip and digoxin load - Diltiazem CD 120 mg PO daily - Metoprolol ER 50 mg PO daily - Digoxin 125 mcg PO daily - Eliquis 5 mg PO BID Secondary Diagnoses: Diabetes Mellitus Type 2, Insulin dependent - Basaglar 45 units daily - Insulin Aspart 15 units TID AC - Metformin 1,000 mg PO BID Acid Reflux - Omeprazole 40 mg PO daily HTN - Losartan 25 mg PO daily Hyperlipidemia - Fenofibrate 160 mg PO daily - Rosuvastatin 40 mg PO daily - Vascepa 1,000 mg, take 2 tabs PO BID Nutritional Supplement - MVI 1 tab PO daily - Vit B12 500 mcg PO daily CODE STATUS: Full Code NEW MEDICATIONS AT DISCHARGE: Digoxin 125 mcg PO daily. This was sent electronically through her clinic chart to Tamika Quach Samanta was admitted 09/12/2021 after coming to the ER with palpitations. She has a hx of paroxysmal a-fib. She was cardioverted in February and again in April. After the April event she was started on Eliquis 5 mg PO BID. She was hospitalized 07/01 for a-fib with RVR and spontaneously converted in less than 24 hours on a diltiazem drip. She was again hospitalized on 08/18 for 24 hours and again, converted with a diltiazem drip. She is on metoprolol ER 50 mg PO daily and Diltiazem CD 120 mg PO daily as an outpatient. She notes her episodes usually occur at night when she is sleeping. Cardiology recommended a sleep study and this has been ordered but not yet performed. She notes that around 1AM on the morning of admission she woke up with palpitations. She tried doing valsalva with no improvement and presented to the ER. She was in A-fib with RVR with a rate in the 160's. Her BP is very sensitive to diltiazem drip and she had been running 80's - 110's systolic on 15 mL/hour of diltiazem. Given the fact that she did not convert after many hours on the diltiazem drip she was loaded with digoxin 300 mcg IV x 1, then 150 mcg 6 hours later and repeating 150 mcg in another 6 hours. Around 5PM on 09/12 she converted to NSR and has been in that overnight through the morning of discharge. She will be discharged home with the NEW MEDICATION digoxin 125 mcg PO daily. Diagnosis: Stroke: No Modified Hertford Scale: No Symptoms at All Modified Padmaja Scale Score: 0 - Discharge Data Discharge Date: 09/13/21 Discharge Disposition: Home, Self-Care 01 Condition: Good - Referral to Home Health Primary Care Physician: PCP None - Patient Instructions Diet: Diabetic Diet - Discharge Plan *PRESCRIPTION DRUG MONITORING PROGRAM REVIEWED*: Not Applicable *COPY OF PRESCRIPTION DRUG MONITORING REPORT IN PATIENT FANTA: Not Applicable Home Medications: Home Meds Aspirin [Halfprin] 1 tab PO DAILY 07/03/16 [History] Omeprazole 40 mg PO ACBREAKFAST 07/03/16 [History] metFORMIN [Glucophage XR] 1,000 mg PO BIDMEALS 07/03/16 [History] Acetaminophen 500 mg PO Q6H PRN 07/01/21 [History] Apixaban [Eliquis] 5 mg PO BID 07/01/21 [History] Beta-Carotene(A) w/C & E/Min [Prosight] 1 tab PO DAILY 07/01/21 [History] Cyanocobalamin (Vitamin B12) [Vitamin B12] 500 mcg PO DAILY 07/01/21 [History] Fenofibrate 160 mg PO BEDTIME 07/01/21 [History] Insulin Aspart [NovoLOG] 15 unit SQ TIDMEALS 07/01/21 [History] Losartan Potassium 25 mg PO BEDTIME 07/01/21 [History] Metoprolol Tartrate 50 mg PO BID 07/01/21 [History] Multivitamin [Multiple Vitamins] 1 each PO DAILY 07/01/21 [History] Rosuvastatin Calcium 40 mg PO DAILY 07/01/21 [History] Insulin Glargine,Hum.Rec.Anlog [Basaglar Kwikpen U-100] 45 unit SQ BEDTIME 08/18/21 [History] Diltiazem [Cardizem CD] 120 mg PO DAILY 30 Days #30 cap.er 08/19/21 [Rx] Icosapent Ethyl [Vascepa] 1 gm PO BIDMEALS 09/12/21 [History] Patient's Own Medication [Ptom] 1 each PO BEDTIME each 09/13/21 [Rx] Patient's Own Medication [Ptom] 1 each PO BIDMEALS each 09/13/21 [Rx] Forms: ED Department Discharge Referrals: PCP,None [Primary Care Provider] - - Discharge Summary/Plan Comment DC Time >30 min.: No Total # of Minutes for Discharge Time: 20 - Patient Data Vitals - Most Recent: Last Vital Signs Temp 96.7 F L 09/13/21 06:47 Pulse 94 09/13/21 08:17 Resp 18 09/13/21 06:47 BP 119/66 09/13/21 08:17 Pulse Ox 96 09/13/21 06:47 Weight - Most Recent: 230 lb I&O - Last 24 hours: Intake & Output 09/12/21 09/13/21 09/13/21 22:59 06:59 14:59 Intake Total 150 120 Balance 150 120 Lab Results - Last 24 hrs: Laboratory Results - last 24 hr 09/12/21 09/12/21 09/12/21 Range/Units 09:40 12:06 17:22 WBC (5.00-10.00) 10^3/uL RBC (3.80-5.50) 10^6/uL Hgb (12.0-16.0) g/dL Hct (37.0-47.0) % MCV (82.0-92.0) fL MCH (27.0-31.0) pg MCHC (32.0-36.0) g/dL RDW (11.5-14.5) % Plt Count (150-400) 10^3/uL MPV (7.4-10.4) fL Immature Gran % (Auto) (0.0-5.0) % Neut % (Auto) (50.0-70.0) % Lymph % (Auto) (20.0-40.0) % Villalba % (Auto) (2.0-8.0) % Eos % (Auto) (1.0-3.0) % Baso % (Auto) (0.0-1.0) % Neut # (Auto) (2.50-7.00) 10^3/uL Lymph # (Auto) (1.00-4.00) 10^3/uL Villalba # (Auto) (0.10-0.80) 10^3/uL Eos # (Auto) (0.10-0.30) 10^3/uL Baso # (Auto) (0.00-0.10) 10^3/uL Immature Gran # (Auto) (0.00-0.50) 10^3/uL Sodium (136-145) mmol/L Potassium (3.5-5.1) mmol/L Chloride (98-107) mmol/L Carbon Dioxide (21.0-32.0) mmol/L Anion Gap (5-15) mmol/L BUN (7-18) mg/dL Creatinine (0.51-1.17) mg/dL Est Cr Clr Drug Dosing mL/min Estimated GFR (MDRD) mL/min Glucose (70-140) mg/dL POC Glucose 192 H 204 H 114 (70-140) mg/dL Calcium (8.7-10.3) mg/dL Free T4 (0.76-1.46) ng/dL TSH, Ultra Sensitive (0.340-4.820) uIU/mL 09/13/21 09/13/21 09/13/21 Range/Units 07:10 07:10 08:07 WBC 5.39 (5.00-10.00) 10^3/uL RBC 4.27 (3.80-5.50) 10^6/uL Hgb 10.3 L (12.0-16.0) g/dL Hct 33.0 L (37.0-47.0) % MCV 77.3 L (82.0-92.0) fL MCH 24.1 L (27.0-31.0) pg MCHC 31.2 L (32.0-36.0) g/dL RDW 16.3 H (11.5-14.5) % Plt Count 268 (150-400) 10^3/uL MPV 9.5 (7.4-10.4) fL Immature Gran % (Auto) 0.2 (0.0-5.0) % Neut % (Auto) 73.0 H (50.0-70.0) % Lymph % (Auto) 19.3 L (20.0-40.0) % Villalba % (Auto) 6.5 (2.0-8.0) % Eos % (Auto) 0.6 L (1.0-3.0) % Baso % (Auto) 0.4 (0.0-1.0) % Neut # (Auto) 3.94 (2.50-7.00) 10^3/uL Lymph # (Auto) 1.04 (1.00-4.00) 10^3/uL Villalba # (Auto) 0.35 (0.10-0.80) 10^3/uL Eos # (Auto) 0.03 L (0.10-0.30) 10^3/uL Baso # (Auto) 0.02 (0.00-0.10) 10^3/uL Immature Gran # (Auto) 0.01 (0.00-0.50) 10^3/uL Sodium 140 (136-145) mmol/L Potassium 4.0 (3.5-5.1) mmol/L Chloride 104 (98-107) mmol/L Carbon Dioxide 24.2 (21.0-32.0) mmol/L Anion Gap 15.8 H (5-15) mmol/L BUN 12 (7-18) mg/dL Creatinine 0.43 L (0.51-1.17) mg/dL Est Cr Clr Drug Dosing 130.85 mL/min Estimated GFR (MDRD) > 60 mL/min Glucose 155 H (70-140) mg/dL POC Glucose 172 H (70-140) mg/dL Calcium 8.5 L (8.7-10.3) mg/dL Free T4 0.98 (0.76-1.46) ng/dL TSH, Ultra Sensitive 2.264 (0.340-4.820) uIU/mL Med Orders - Current: Current Medications Acetaminophen (Acetaminophen 325 Mg Tab) 650 mg PO Q4H PRN PRN Reason: Pain (Mild 1-3)/fever Acetaminophen (Acetaminophen 500 Mg Tab) 500 mg PO Q6H PRN PRN Reason: Pain Apixaban (Apixaban 5 Mg Tab) 5 mg PO BID [facility] Last Admin: 09/13/21 08:15 Dose: 5 mg Documented by: Aspirin (Aspirin 81 Mg Tab.Ec) 81 mg PO DAILY [facility] Last Admin: 09/13/21 08:15 Dose: 81 mg Documented by: Cyanocobalamin (Cyanocobalamin (Vitamin B12) 500 Mcg Tab) 500 mcg PO DAILY [facility] Last Admin: 09/13/21 08:18 Dose: Not Given Documented by: Dextrose/Water (50% Dextrose In Water 50 Ml Syringe) 50 ml IVPUSH ASDIRECTED UT N PRN Reason: Hypoglycemia Digoxin (Digoxin 125 Mcg Tab) 125 mcg PO DAILY [facility] Diltiazem HCl (Diltiazem 120 Mg Cap.Cd) 120 mg PO DAILY [facility] Last Admin: 09/13/21 08:17 Dose: 120 mg Documented by: Diphenhydramine HCl (Diphenhydramine 50 Mg/Ml Sdv) 50 mg IVPUSH ONETIME [facility] Last Admin: 09/12/21 14:09 Dose: 50 mg Documented by: Docusate Sodium (Docusate Sodium 100 Mg Cap) 100 mg PO BID PRN PRN Reason: Constipation Glucagon (Glucagon,Human Recombinant 1 Mg Vial) 1 mg IM ASDIRECTED PRN PRN Reason: Hypoglycemia Diltiazem HCl 125 mg/ Sodium (Chloride) 125 mls @ 5 mls/hr IV TITRATE SHIRLEY; P rotocol Last Admin: 09/12/21 11:37 Dose: 15 mg/hr, 15 mls/hr Documented by: Insulin Aspart (Insulin Aspart 100 Units/Ml 3 Ml Pen) 15 unit SUBCUT TIDMEALS [facility] Last Admin: 09/13/21 08:18 Dose: 15 units Documented by: Insulin Glargine (Insulin Glargine,Hum.Rec.Anlog 100 Unit/Ml 3 Ml Pen) 45 unit SUBCUT BEDTIME [facility] Last Admin: 09/12/21 20:40 Dose: 45 unit Documented by: Losartan Potassium (Losartan 25 Mg Tab) 25 mg PO BEDTIME [facility] Metformin HCl (Metformin 500 Mg Tab.Er) 1,000 mg PO BIDMEALS [facility] Last Admin: 09/13/21 08:15 Dose: 1,000 mg Documented by: Metoprolol Tartrate (Metoprolol Tartrate 50 Mg Tab) 50 mg PO BID [facility] Last Admin: 09/13/21 08:16 Dose: 50 mg Documented by: Multivitamins/Minerals (Lutein/Minerals/Vitamins A, C & E Tab) 1 each PO DAILY [facility] Last Admin: 09/13/21 08:18 Dose: Not Given Documented by: Multivitamins/Minerals (Multivitamins With Minerals/Iron/Folic Acid/Lycopene Tab) 1 tab PO DAILY [facility] Last Admin: 09/13/21 08:16 Dose: Not Given Documented by: Ondansetron HCl (Ondansetron 4 Mg Tab.Dis) 4 mg PO Q6H PRN PRN Reason: nausea, able to take PO Pantoprazole Sodium (Pantoprazole 40 Mg Tab.Cr) 40 mg PO ACBREAKFAST [facility] Last Admin: 09/13/21 08:14 Dose: 40 mg Documented by: Patient Own Medication (Patient's Own Medication 1 Each) 1 each PO BEDTIME [facility] Patient Own Medication (Patient's Own Medication 1 Each) 1 each PO BIDMEALS [facility] Rosuvastatin Calcium (Rosuvastatin 10 Mg Tab) 40 mg PO DAILY [facility] Last Admin: 09/13/21 08:14 Dose: 40 mg Documented by: Discontinued Medications Digoxin (Digoxin 500 Mcg/2 Ml Amp) 500 mcg IVPUSH ONETIME ONE Stop: 09/12/21 12:26 Last Admin: 09/12/21 13:53 Dose: Not Given Documented by: Digoxin (Digoxin 500 Mcg/2 Ml Amp) 250 mcg IVPUSH Q6H [facility] Stop: 09/13/21 00:31 Digoxin (Digoxin 500 Mcg/2 Ml Amp) Confirm Administered Dose 500 mcg .ROUTE .STK-MED ONE Stop: 09/12/21 12:50 Last Admin: 09/12/21 13:07 Dose: Not Given Documented by: Digoxin (Digoxin 500 Mcg/2 Ml Amp) 300 mcg IVPUSH ONETIME ONE Stop: 09/12/21 13:01 Last Admin: 09/12/21 13:16 Dose: 300 mcg Documented by: Digoxin (Digoxin 500 Mcg/2 Ml Amp) 150 mcg IVPUSH Q6H [facility] Stop: 09/13/21 01:01 Last Admin: 09/13/21 00:57 Dose: 150 mcg Documented by: Digoxin (Digoxin 50 Mcg/Ml Soln 60 Ml Bottle) 125 mcg PO DAILY@1800 [facility] Diltiazem HCl (Diltiazem 25 Mg/5 Ml Sdv) 15 mg IVPUSH ONETIME ONE Stop: 09/12/21 01:50 [employer]ICAL QUALITY MANAGER Last Admin: 09/12/21 01:54 CLINICAL QUALITY MANAGER Dose: 15 mg Documented by: Diltiazem HCl (Diltiazem 25 Mg/5 Ml Sdv) 25 mg IVPUSH ONETIME ONE Stop: 09/12/21 02:27 Last Admin: 09/12/21 02:28 Dose: 25 mg Documented by: Diltiazem HCl (Diltiazem 25 Mg/5 Ml Sdv) 15 mg IVPUSH ONETIME ONE Stop: 09/12/21 03:17 Last Admin: 09/12/21 03:18 Dose: 15 mg Documented by: Sodium Chloride (Normal Saline) 1,000 mls @ 999 mls/hr IV .BOLUS ONE Stop: 09/12/21 02:49 Last Admin: 09/12/21 01:59 CLINICAL QUALITY MANAGER Dose: 999 mls/hr Documented by: Sodium Chloride (Normal Saline) Confirm Administered Dose 1,000 mls @ as directed .ROUTE .STK-MED ONE Stop: 09/12/21 01:52 CLINICAL QUALITY MANAGER Last Admin: 09/12/21 02:00 Dose: Not Given Documented by: Sodium Chloride (Normal Saline) 1,000 mls @ 999 mls/hr IV .BOLUS ONE Stop: 09/12/21 13:27 Last Admin: 09/12/21 13:00 Dose: 999 mls/hr Documented by: Lorazepam (Lorazepam 2 Mg/Ml Sdv) 2 mg IVPUSH ONETIME ONE Stop: 09/12/21 02:00 Last Admin: 09/12/21 02:02 Dose: 1 mg Documented by: Non-Formulary Medication (Beta-Carotene(A) W/C & E/Min [Prosight]) 1 tab PO DAILY [facility] Last Admin: 09/12/21 13:52 Dose: Not Given Documented by: Non-Formulary Medication (Fenofibrate [Fenofibrate]) 160 mg PO BEDTIME [facility] Non-Formulary Medication (Icosapent Ethyl [Vascepa]) 1 gm PO BIDMEALS [facility] Last Admin: 09/12/21 13:52 Dose: Not Given Documented by: Non-Formulary Medication (Insulin Glargine,Hum.Rec.Anlog) 45 unit SQ BEDTIME [facility] Non-Formulary Medication (Multivitamin [Multiple Vitamins]) 1 each PO DAILY [facility] Last Admin: 09/12/21 13:52 Dose: Not Given Documented by: Non-Formulary Medication (Omeprazole [Omeprazole]) 40 mg PO ACBREAKFAST [facility] Last Admin: 09/12/21 13:52 Dose: Not Given Documented by: Non-Formulary Medication (Rosuvastatin Calcium [Rosuvastatin Calcium]) 40 mg PO DAILY [facility] Last Admin: 09/12/21 13:52 Dose: Not Given Documented by: - Exam General: Reports: Alert, Oriented, Cooperative, No Acute Distress Lungs: Reports: Clear to Auscultation, Normal Respiratory Effort Cardiovascular: Reports: Regular Rate, Regular Rhythm, No Murmurs GI/Abdominal Exam: Normal Bowel Sounds Extremities: No Pedal Edema
[2021-09-13] MEDS ORDERED: Digoxin 125 MCG Tab PO SCH (09:45)
[2021-09-13 10:19] VITALS: PULSE 85
[2021-09-13] MEDS ORDERED: Digoxin 50 MCG/ML Soln 60 ML Bottle PO SCH (18:00)
== END 2021-09-13 10:25 | disposition home or self-care (01) | DRG 201 ==
LOC: KA.ED 01:11 → KA.MS 04:07 → UNDOADMIN 04:07 → KA.MS 09-13 03:56 → UNDODISIN 09-13 10:25
PROVIDERS: ADMIT Internal Medicine; ATTEND Internal Medicine
DX: I48.91 Unspecified atrial fibrillation (principal); K21.9 Gastro-esophageal reflux disease without esophagitis; I10 Essential (primary) hypertension; E78.5 Hyperlipidemia, unspecified; E11.9 Type 2 diabetes mellitus without complications; E78.00 Pure hypercholesterolemia, unspecified; E66.9 Obesity, unspecified; Z20.822 Contact with and (suspected) exposure to COVID-19; H54.7 Unspecified visual loss; Z88.8 Allergy status to other drugs, medicaments and biological substances; Z88.5 Allergy status to narcotic agent; Z79.4 Long term (current) use of insulin; Z79.82 Long term (current) use of aspirin; Z79.899 Other long term (current) drug therapy; Z68.41 Body mass index [BMI] 40.0-44.9, adult; Z90.49 Acquired absence of other specified parts of digestive tract; Z98.890 Other specified postprocedural states
CPT/HCPCS: 36415; 80048; 82947; 84439; 84443; 84484; 85025; 93005; 93010; 96374; 96375; 96376; 99223; 99285-25; A9270-GY; J1160; J1200; J1815-GY; J2060; J3490; J7030; U0002

== ENCOUNTER 2021-10-08 22:20 | Inpatient (IN) | payer BC ==
[2021-10-08] MEDS: Sodium Chloride 0.9% 10 ML Syringe FLUSH PRN (22:58)
[2021-10-08] MEDS ORDERED: Diltiazem 25 MG/5 ML SDV IVPUSH ONE (23:14)
[2021-10-08] MEDS ORDERED: Sodium Chloride 0.9% 1,000 ML IV ONE (23:18)
[2021-10-08] MEDS ORDERED: Sodium Chloride 0.9% 1,000 ML ONE (23:19)
[2021-10-08 23:26] LABS: ANION GAP 19.5 mmol/L (5-15); CHLORIDE,CL 102 mmol/L (98-107); SODIUM,NA 138 mmol/L (136-145)
[2021-10-08] MEDS ORDERED: Digoxin 500 MCG/2 ML Amp IVPUSH ONE (23:30)
--- NOTE | 2021-10-08 23:39 | EDM.PDOC ---
ED HPI GENERAL MEDICAL PROBLEM - General Chief Complaint: General Stated Complaint: Afib/tachycardia Time Seen by Provider: 10/08/21 22:35 Source of Information: Reports: Patient History Limitations: Reports: No Limitations - History of Present Illness INITIAL COMMENTS - FREE TEXT/NARRATIVE: Amie is 50-year-old female with recurrence of atrial fibrillation with RVR. Last admission was on on September 12. She has had previous cardioversions in February of April of this past year. She is on current Eliquis 5 mg p.o. twice daily digoxin 125 mcg p.o. daily metoprolol tartrate ER 50 mg p.o. daily and Dital exam CD 100 mg p.o. daily. She recently had a sleep study which was recommended by her frame stripper and was diagnosed with sleep apnea and prescribed CPAP. She noticed an abrupt onset of palpations at approximately 9 PM this evening this is felt like her previous episodes where her heart was racing. She denies currently any chest pain. Any increased shortness of br eath. No nausea or vomiting. No headache. EKG was ordered and completed upon arrival showing her rate was at 159 bpm and A. fib with RVR. She is nontoxic- appearing in no acute distress. O2 saturations are 96% on room air. Pressures are currently 102/43. Onset: Today Onset Date: 10/08/21 Onset Time: 21:00 Duration: Hour(s): Location: Reports: Chest Quality: Reports: Same as Previous Episode Severity: Moderate Improves with: Reports: None Worsens with: Reports: None Associated Symptoms: Denies: Confusion, Chest Pain, Diaphoresis, Fever/Chills, Headaches, Nausea/Vomiting, Shortness of Breath, Syncope - Related Data Allergies Allergy/AdvReac Type Severity Reaction Status Date / Time lisinopril Allergy Cough Verified 09/12/21 01:45 WATER TREATMENT OPERATOR morphine Allergy Nausea and Verified 09/12/21 01:45 WATER TREATMENT OPERATOR Vomiting Home Meds: Home Meds Aspirin [Halfprin] 1 tab PO DAILY 07/03/16 [History] Omeprazole 40 mg PO ACBREAKFAST 07/03/16 [History] metFORMIN [Glucophage XR] 1,000 mg PO BIDMEALS 07/03/16 [History] Acetaminophen 500 mg PO Q6H PRN 07/01/21 [History] Apixaban [Eliquis] 5 mg PO BID 07/01/21 [History] Beta-Carotene(A) w/C & E/Min [Prosight] 1 tab PO DAILY 07/01/21 [History] Cyanocobalamin (Vitamin B12) [Vitamin B12] 500 mcg PO DAILY 07/01/21 [History] Fenofibrate 160 mg PO BEDTIME 07/01/21 [History] Insulin Aspart [NovoLOG] 15 unit SQ TIDMEALS 07/01/21 [History] Losartan Potassium 25 mg PO BEDTIME 07/01/21 [History] Metoprolol Tartrate 50 mg PO BID 07/01/21 [History] Multivitamin [Multiple Vitamins] 1 each PO DAILY 07/01/21 [History] Rosuvastatin Calcium 40 mg PO DAILY 07/01/21 [History] Insulin Glargine,Hum.Rec.Anlog [Basaglar Kwikpen U-100] 45 unit SQ BEDTIME 08/18/21 [History] Diltiazem [Cardizem CD] 120 mg PO DAILY 30 Days #30 cap.er 08/19/21 [Rx] Icosapent Ethyl [Vascepa] 1 gm PO BIDMEALS 09/12/21 [History] Patient's Own Medication [Ptom] 1 each PO BEDTIME each 09/13/21 [Rx] Patient's Own Medication [Ptom] 1 each PO BIDMEALS each 09/13/21 [Rx] Past Medical History HEENT History: Reports: Impaired Vision Cardiovascular History: Reports: Afib, High Cholesterol, Hypertension Respiratory History: Reports: None Gastrointestinal History: Reports: GERD, Pancreatitis Genitourinary History: Reports: Urinary Incontinence, UTI, Recurrent Musculoskeletal History: Reports: Back Pain, Chronic, Fracture Neurological History: Reports: Migraines Endocrine/Metabolic History: Reports: Diabetes, Type II, Obesity/BMI 30+ Hematologic History: Reports: Anemia, Blood Transfusion(s) Immunologic History: Reports: None Oncologic (Cancer) History: Reports: None Dermatologic History: Reports: None - Infectious Disease History Infectious Disease History: Reports: Chicken Pox - Past Surgical History Head Surgeries/Procedures: Reports: None HEENT Surgical History: Reports: Adenoidectomy, Eye Surgery, Oral Surgery, Tonsillectomy Cardiovascular Surgical History: Reports: None Respiratory Surgical History: Reports: None GI Surgical History: Reports: Cholecystectomy, Colonoscopy, EGD, Polypectomy Female Surgical History: Reports: Other (See Below) Other Female Surgeries/Procedures: bladder surgery when young Endocrine Surgical History: Reports: None Neurological Surgical History: Reports: None Musculoskeletal Surgical History: Reports: None Oncologic Surgical History: Reports: None Dermatological Surgical History: Reports: None Social & Family History - Family History Family Medical History: No Pertinent Family History - Caffeine Use Caffeine Use: Reports: None ED ROS GENERAL - Review of Systems Review Of Systems: See Below Constitutional: Reports: No Symptoms HEENT: Reports: No Symptoms Respiratory: Reports: No Symptoms Cardiovascular: Reports: Palpitations Endocrine: Reports: High Glucose GI/Abdominal: Reports: No Symptoms : Reports: No Symptoms Musculoskeletal: Reports: No Symptoms Skin: Reports: No Symptoms Neurological: Reports: No Symptoms Psychiatric: Reports: Anxiety Hematologic/Lymphatic: Reports: No Symptoms Immunologic: Reports: No Symptoms ED EXAM, GENERAL - Physical Exam Exam: See Below Exam Limited By: No Limitations General Appearance: Alert, No Apparent Distress, Obese Eye Exam: Bilateral Eye: EOMI Ears: Hearing Grossly Normal Nose: Normal Inspection Throat/Mouth: Normal Voice, No Airway Compromise Head: Atraumatic Neck: Normal Inspection Respiratory/Chest: No Respiratory Distress, Lungs Clear, Normal Breath Sounds Cardiovascular: Tachycardia, Irregularly Irregular Peripheral Pulses: 1+: Dorsalis Pedis (L), Dorsalis Pedis (R), 2+: Carotid (L), Carotid (R), Radial (L), Radial (R) GI/Abdominal: Soft, Non-Tender Back Exam: Normal Inspection Extremities: Normal Inspection, Normal Range of Motion, Non-Tender Neurological: Alert, Oriented, CN II-XII Intact, No Motor/Sensory Deficits Psychiatric: Anxious Skin Exam: Warm, Dry, Intact, Normal Color, No Rash Lymphatic: No Adenopathy #1 Interpretation EKG Date: 10/08/21 Time: 22:36 Rhythm: A-Fib Rate (Beats/Min): 159 Ernul: Normal P-Wave: Present QRS: Normal ST-T: Other QT: Normal Comparison: No Change EKG Interpretation Comments: Atrial fibrillation with rapid ventricular response Nonspecific ST abnormality, probably digitalis effect Abnormal QRS-T angle, consider primary T wave abnormality Abnormal ECG Course - Orders/Labs/Meds Orders: Active Orders 24 hr Category Date Time Status Peripheral IV Care [RC] . DIRECTED Care 10/08/21 22:40 Active CBC WITH AUTO DIFF [HEME] Stat Lab 10/08/21 23:00 Received CMP [COMPREHENSIVE METABOLIC PN,CMP] [CHEM] Stat Lab 10/08/21 23:00 Received TROPONIN I HIGH SENSITIVITY [CHEM] Stat Lab 10/08/21 23:00 Received Sodium Chloride 0.9% [Saline Flush] Med 10/08/21 22:40 Active 10 ml FLUSH Q8HR PRN Peripheral IV Insertion Adult [OM.PC] Routine Oth 10/08/21 22:40 Ordered EKG 12 Lead [EK] Stat Ther 10/08/21 22:30 Ordered Medication Orders Sodium Chloride (Sodium Chloride 0.9% 10 Ml Syringe) 10 ml FLUSH Q8HR PRN PRN Reason: keep vein open Last Admin: 10/08/21 22:58 Dose: 10 ml Documented by: TRICIA Meds: Medications Generic Name Dose Route Start Last Admin Trade Name Freq PRN Reason Stop Dose Admin Sodium Chloride 10 ml 10/08/21 22:40 10/08/21 22:58 Sodium Chloride 0.9% 10 Ml Syringe FLUSH 10 ml Q8HR PRN Administration keep vein open - Re-Assessments/Exams Free Text/Narrative Re-Assessment/Exam: 10/09/21 00:40 Patient was given 125 mcg of digoxin IV. No rate in change. She was given 1 L of fluids and her blood pressures improved and was given 25 mg of Cardizem IV ov er 2 minutes. Her heart rate fluctuated between the 90s and 130s. Patient feels like her heart rate is less palpating. No other complaints are voiced. Departure - Departure Time of Disposition: 00:41 Disposition: Refer to Observation Condition: Fair Clinical Impression: Atrial fibrillation with rapid ventricular response - Discharge Information Referrals: Jayde Beltrán MD [Primary Care Provider] - - My Orders Last 24 Hours: My Active Orders 10/08/21 22:30 EKG 12 Lead [EK] Stat 10/08/21 22:40 Peripheral IV Care [RC] . DIRECTED Sodium Chloride 0.9% [Saline Flush] 10 ml FLUSH Q8HR PRN Peripheral IV Insertion Adult [OM.PC] Routine 10/08/21 23:00 CBC WITH AUTO DIFF [HEME] Stat CMP [COMPREHENSIVE METABOLIC PN,CMP] [CHEM] Stat TROPONIN I HIGH SENSITIVITY [CHEM] Stat - Assessment/Plan Admission H&P: Please use this note as an admission H&P Last 24 Hours: My Active Orders 10/08/21 22:30 EKG 12 Lead [EK] Stat 10/08/21 22:40 Peripheral IV Care [RC] . DIRECTED Sodium Chloride 0.9% [Saline Flush] 10 ml FLUSH Q8HR PRN Peripheral IV Insertion Adult [OM.PC] Routine 10/08/21 23:00 CBC WITH AUTO DIFF [HEME] Stat CMP [COMPREHENSIVE METABOLIC PN,CMP] [CHEM] Stat TROPONIN I HIGH SENSITIVITY [CHEM] Stat Assessment:: Recurrent atrial fibrillation with RVR with rate running currently in the 140s. Plan: 1. Patient will be placed observation on telemetry. 2. Recommend repeat her digoxin at 150 mg IV 6 hours from her last dose. 3. Continue with her regular dosage of Dital exam CD 100 mg p.o. daily, metoprolol ER 50 mg p.o. daily digoxin 125 mcg p.o. daily and Eliquis 5 mg p.o. twice daily. 4. We will have Cesar Giang NP see the patient tomorrow on rounds. 5. She will finish her second liter of IV fluids. And run on at 75 cc an hour normal saline.
[2021-10-09] MEDS ORDERED: Diltiazem 25 MG/5 ML SDV IVPUSH ONE ×3 (00:02→22:53)
[2021-10-09] MEDS ORDERED: Sodium Chloride 0.9% 1,000 ML IV ONE (00:21)
[2021-10-09] MEDS ORDERED: Temazepam 15 MG Cap PO PRN (00:48)
[2021-10-09] MEDS ORDERED: Acetaminophen 325 MG Tab PO PRN (00:48)
[2021-10-09] MEDS ORDERED: Ondansetron 4 MG/2 ML SDV IV PRN (00:48)
[2021-10-09] MEDS: LORazepam 2 MG/ML SDV IV PRN ×2 (01:55→21:42)
[2021-10-09] MEDS ORDERED: Digoxin 500 MCG/2 ML Amp IVPUSH ONE (05:30)
[2021-10-09] MEDS: Sodium Chloride 0.9% 1,000 ML IV SCH ×3 (06:22→23:39)
[2021-10-09] MEDS ORDERED: Adenosine 12 MG/4 ML SDV IVPUSH ONE ×3 (11:45→12:09)
[2021-10-09] MEDS: Sodium Chloride 0.9% 10 ML Syringe FLUSH PRN (11:54)
[2021-10-09] MEDS: Diltiazem 120 MG Cap.CD PO SCH (12:28)
[2021-10-09] MEDS: Apixaban 5 MG Tab PO SCH ×2 (12:28→20:38)
[2021-10-09] MEDS: Metoprolol Tartrate 50 MG Tab PO SCH ×2 (12:28→20:38)
[2021-10-09] MEDS ORDERED: Digoxin 125 MCG Tab PO ONE (12:30)
[2021-10-09] MEDS ORDERED: Digoxin 125 MCG Tab PO SCH (12:30)
--- NOTE | 2021-10-09 13:04 | PCM.PN ---
- General Info Date of Service: 10/09/21 Functional Status: Reports: Pain Controlled, Tolerating Diet, New Symptoms (fast HR ). Denies: Ambulating - Review of Systems General: Reports: No Symptoms HEENT: Reports: No Symptoms Pulmonary: Denies: Shortness of Breath, Cough, Wheezing Cardiovascular: Denies: Chest Pain, Palpitations Gastrointestinal: Reports: No Symptoms Genitourinary: Reports: No Symptoms Musculoskeletal: Reports: No Symptoms Skin: Reports: No Symptoms Neurological: Denies: Confusion Psychiatric: Reports: No Symptoms - Patient Data Vitals - Most Recent: Last Vital Signs Temp 97.3 F 10/09/21 11:00 Pulse 148 H 10/09/21 12:28 Resp 20 10/09/21 11:00 BP 120/63 10/09/21 12:28 Pulse Ox 98 10/09/21 11:00 Weight - Most Recent: 230 lb I&O - Last 24 Hours: Intake & Output 10/08/21 10/09/21 10/09/21 22:59 06:59 14:59 Intake Total 2390 Balance 2390 Lab Results Last 24 Hours: Laboratory Results - last 24 hr 10/08/21 10/08/21 10/08/21 Range/Units 23:00 23:00 23:00 WBC 7.16 (5.00-10.00) 10^3/uL RBC 4.54 (3.80-5.50) 10^6/uL Hgb 10.7 L (12.0-16.0) g/dL Hct 34.4 L (37.0-47.0) % MCV 75.8 L (82.0-92.0) fL MCH 23.6 L (27.0-31.0) pg MCHC 31.1 L (32.0-36.0) g/dL RDW 17.5 H (11.5-14.5) % Plt Count 261 (150-400) 10^3/uL MPV 9.7 (7.4-10.4) fL Immature Gran % (Auto) 0.3 (0.0-5.0) % Neut % (Auto) 68.1 (50.0-70.0) % Lymph % (Auto) 23.9 (20.0-40.0) % [place] % (Auto) 7.1 (2.0-8.0) % Eos % (Auto) 0.3 L (1.0-3.0) % Baso % (Auto) 0.3 (0.0-1.0) % Neut # (Auto) 4.88 (2.50-7.00) 10^3/uL Lymph # (Auto) 1.71 (1.00-4.00) 10^3/uL [place] # (Auto) 0.51 (0.10-0.80) 10^3/uL Eos # (Auto) 0.02 L (0.10-0.30) 10^3/uL Baso # (Auto) 0.02 (0.00-0.10) 10^3/uL Immature Gran # (Auto) 0.02 (0.00-0.50) 10^3/uL Sodium 138 (136-145) mmol/L Potassium 3.9 (3.5-5.1) mmol/L Chloride 102 (98-107) mmol/L Carbon Dioxide 20.4 L (21.0-32.0) mmol/L Anion Gap 19.5 H (5-15) mmol/L BUN 15 (7-18) mg/dL Creatinine 0.45 L (0.51-1.17) mg/dL Est Cr Clr Drug Dosing 125.03 mL/min Estimated GFR (MDRD) > 60 mL/min Glucose 209 H (70-140) mg/dL POC Glucose (70-140) mg/dL Calcium 8.9 (8.7-10.3) mg/dL Total Bilirubin 0.4 (0.2-1.0) mg/dL AST 26 (15-37) U/L ALT 21 (14-63) U/L Alkaline Phosphatase 50 (46-116) U/L Troponin I High Sens 11.300 (0-51.000) pg/mL Total Protein 7.2 (6.4-8.2) g/dL Albumin 3.79 (3.40-5.00) g/dL Digoxin < 0.20 L (0.30-2.00) ng/mL SARS CoV-2 RNA Rapid PHILIP (NEGATIVE) 10/09/21 10/09/21 Range/Units 05:00 07:54 WBC (5.00-10.00) 10^3/uL RBC (3.80-5.50) 10^6/uL Hgb (12.0-16.0) g/dL Hct (37.0-47.0) % MCV (82.0-92.0) fL MCH (27.0-31.0) pg MCHC (32.0-36.0) g/dL RDW (11.5-14.5) % Plt Count (150-400) 10^3/uL MPV (7.4-10.4) fL Immature Gran % (Auto) (0.0-5.0) % Neut % (Auto) (50.0-70.0) % Lymph % (Auto) (20.0-40.0) % [place] % (Auto) (2.0-8.0) % Eos % (Auto) (1.0-3.0) % Baso % (Auto) (0.0-1.0) % Neut # (Auto) (2.50-7.00) 10^3/uL Lymph # (Auto) (1.00-4.00) 10^3/uL [place] # (Auto) (0.10-0.80) 10^3/uL Eos # (Auto) (0.10-0.30) 10^3/uL Baso # (Auto) (0.00-0.10) 10^3/uL Immature Gran # (Auto) (0.00-0.50) 10^3/uL Sodium (136-145) mmol/L Potassium (3.5-5.1) mmol/L Chloride (98-107) mmol/L Carbon Dioxide (21.0-32.0) mmol/L Anion Gap (5-15) mmol/L BUN (7-18) mg/dL Creatinine (0.51-1.17) mg/dL Est Cr Clr Drug Dosing mL/min Estimated GFR (MDRD) mL/min Glucose (70-140) mg/dL POC Glucose 180 H (70-140) mg/dL Calcium (8.7-10.3) mg/dL Total Bilirubin (0.2-1.0) mg/dL AST (15-37) U/L ALT (14-63) U/L Alkaline Phosphatase (46-116) U/L Troponin I High Sens (0-51.000) pg/mL Total Protein (6.4-8.2) g/dL Albumin (3.40-5.00) g/dL Digoxin (0.30-2.00) ng/mL SARS CoV-2 RNA Rapid PHILIP Negative (NEGATIVE) Med Orders - Current: Current Medications Acetaminophen (Acetaminophen 325 Mg Tab) 650 mg PO Q4H PRN PRN Reason: Pain (Mild 1-3)/fever Apixaban (Apixaban 5 Mg Tab) 5 mg PO BID [facility] Last Admin: 10/09/21 12:28 Dose: 5 mg Documented by: Digoxin (Digoxin 125 Mcg Tab) 125 mcg PO DAILY@1800 [facility] Diltiazem HCl (Diltiazem 120 Mg Cap.Cd) 120 mg PO DAILY [facility] Last Admin: 10/09/21 12:28 Dose: 120 mg Documented by: Sodium Chloride (Normal Saline) 1,000 mls @ 125 mls/hr IV ASDIRECTED [facility] Last Admin: 10/09/21 06:22 Dose: 125 mls/hr Documented by: Lorazepam (Lorazepam 2 Mg/Ml Sdv) 1 mg IV Q6H PRN PRN Reason: Nausea/Vomiting Last Admin: 10/09/21 01:55 Dose: 1 mg Documented by: Metoprolol Tartrate (Metoprolol Tartrate 50 Mg Tab) 50 mg PO BID [facility] Last Admin: 10/09/21 12:28 Dose: 50 mg Documented by: Ondansetron HCl (Ondansetron 4 Mg/2 Ml Sdv) 4 mg IV Q4H PRN PRN Reason: Nausea/Vomiting Sodium Chloride (Sodium Chloride 0.9% 10 Ml Syringe) 10 ml FLUSH Q8HR PRN PRN Reason: keep vein open Last Admin: 10/08/21 22:58 Dose: 10 ml Documented by: Temazepam (Temazepam 15 Mg Cap) 15 mg PO BEDTIME PRN PRN Reason: Sleep Discontinued Medications Digoxin (Digoxin 500 Mcg/2 Ml Amp) 125 mcg IVPUSH ONETIME ONE Stop: 10/08/21 23:31 Last Admin: 10/08/21 23:37 Dose: 125 mcg Documented by: Digoxin (Digoxin 500 Mcg/2 Ml Amp) 125 mcg IVPUSH ONETIME ONE Stop: 10/09/21 05:31 Last Admin: 10/09/21 06:15 Dose: 125 mcg Documented by: Digoxin (Digoxin 125 Mcg Tab) 125 mcg PO DAILY [facility] Digoxin (Digoxin 125 Mcg Tab) 125 mcg PO ONETIME ONE Stop: 10/09/21 12:31 Last Admin: 10/09/21 12:27 Dose: 125 mcg Documented by: Diltiazem HCl (Diltiazem 25 Mg/5 Ml Sdv) 20 mg IVPUSH ONETIME ONE Stop: 10/08/21 23:15 Last Admin: 10/09/21 00:12 Dose: Not Given Documented by: Diltiazem HCl (Diltiazem 25 Mg/5 Ml Sdv) 25 mg IVPUSH ONETIME ONE Stop: 10/09/21 00:03 Last Admin: 10/09/21 00:08 Dose: 25 mg Documented by: Sodium Chloride (Normal Saline) Confirm Administered Dose 1,000 mls @ as directed .ROUTE .STK-MED ONE Stop: 10/08/21 23:20 Last Admin: 10/08/21 23:26 Dose: Not Given Documented by: Sodium Chloride (Normal Saline) 1,000 mls @ 999 mls/hr IV .BOLUS ONE Stop: 10/09/21 00:18 Last Admin: 10/08/21 23:21 Dose: 999 mls/hr Documented by: Sodium Chloride (Normal Saline) 1,000 mls @ 999 mls/hr IV .BOLUS ONE Stop: 10/09/21 01:21 Last Admin: 10/09/21 00:24 Dose: 999 mls/hr Documented by: - Exam Quality Assessment: Supplemental Oxygen General: Alert, Oriented, Cooperative, No Acute Distress HEENT: Mucous Membr. Moist/[place] Neck: Supple, No JVD Lungs: Clear to Auscultation, Normal Respiratory Effort. No: Crackles, Rales Cardiovascular: Tachycardia GI/Abdominal Exam: Normal Bowel Sounds, Soft Extremities: No: Slow Capillary Refill Peripheral Pulses: 2+: Radial (R), 3+: Radial (L) Skin: Cool Neurological: No New Focal Deficit Psy/Mental Status: Alert, Normal Affect, Normal Mood #1 Interpretation EKG Date: 10/09/21 Rhythm: Other (SVT) [place]: Normal P-Wave: Present QRS: Normal ST-T: Normal QT: Prolonged Comparison: Change From Previous EKG - Patient Data Lab Results Last 24 hrs: Laboratory Results - last 24 hr 12/03/21 12/03/21 12/03/21 Range/Units 23:00 23:00 23:00 WBC 7.16 (5.00-10.00) 10^3/uL RBC 4.54 (3.80-5.50) 10^6/uL Hgb 10.7 L (12.0-16.0) g/dL Hct 34.4 L (37.0-47.0) % MCV 75.8 L (82.0-92.0) fL MCH 23.6 L (27.0-31.0) pg MCHC 31.1 L (32.0-36.0) g/dL RDW 17.5 H (11.5-14.5) % Plt Count 261 (150-400) 10^3/uL MPV 9.7 (7.4-10.4) fL Immature Gran % (Auto) 0.3 (0.0-5.0) % Neut % (Auto) 68.1 (50.0-70.0) % Lymph % (Auto) 23.9 (20.0-40.0) % [place] % (Auto) 7.1 (2.0-8.0) % Eos % (Auto) 0.3 L (1.0-3.0) % Baso % (Auto) 0.3 (0.0-1.0) % Neut # (Auto) 4.88 (2.50-7.00) 10^3/uL Lymph # (Auto) 1.71 (1.00-4.00) 10^3/uL [place] # (Auto) 0.51 (0.10-0.80) 10^3/uL Eos # (Auto) 0.02 L (0.10-0.30) 10^3/uL Baso # (Auto) 0.02 (0.00-0.10) 10^3/uL Immature Gran # (Auto) 0.02 (0.00-0.50) 10^3/uL Sodium 138 (136-145) mmol/L Potassium 3.9 (3.5-5.1) mmol/L Chloride 102 (98-107) mmol/L Carbon Dioxide 20.4 L (21.0-32.0) mmol/L Anion Gap 19.5 H (5-15) mmol/L BUN 15 (7-18) mg/dL Creatinine 0.45 L (0.51-1.17) mg/dL Est Cr Clr Drug Dosing 125.03 mL/min Estimated GFR (MDRD) > 60 mL/min Glucose 209 H (70-140) mg/dL POC Glucose (70-140) mg/dL Calcium 8.9 (8.7-10.3) mg/dL Total Bilirubin 0.4 (0.2-1.0) mg/dL AST 26 (15-37) U/L ALT 21 (14-63) U/L Alkaline Phosphatase 50 (46-116) U/L Troponin I High Sens 11.300 (0-51.000) pg/mL Total Protein 7.2 (6.4-8.2) g/dL Albumin 3.79 (3.40-5.00) g/dL Digoxin < 0.20 L (0.30-2.00) ng/mL SARS CoV-2 RNA Rapid PHILIP (NEGATIVE) 10/09/21 10/09/21 Range/Units 05:00 07:54 WBC (5.00-10.00) 10^3/uL RBC (3.80-5.50) 10^6/uL Hgb (12.0-16.0) g/dL Hct (37.0-47.0) % MCV (82.0-92.0) fL MCH (27.0-31.0) pg MCHC (32.0-36.0) g/dL RDW (11.5-14.5) % Plt Count (150-400) 10^3/uL MPV (7.4-10.4) fL Immature Gran % (Auto) (0.0-5.0) % Neut % (Auto) (50.0-70.0) % Lymph % (Auto) (20.0-40.0) % [place] % (Auto) (2.0-8.0) % Eos % (Auto) (1.0-3.0) % Baso % (Auto) (0.0-1.0) % Neut # (Auto) (2.50-7.00) 10^3/uL Lymph # (Auto) (1.00-4.00) 10^3/uL [place] # (Auto) (0.10-0.80) 10^3/uL Eos # (Auto) (0.10-0.30) 10^3/uL Baso # (Auto) (0.00-0.10) 10^3/uL Immature Gran # (Auto) (0.00-0.50) 10^3/uL Sodium (136-145) mmol/L Potassium (3.5-5.1) mmol/L Chloride (98-107) mmol/L Carbon Dioxide (21.0-32.0) mmol/L Anion Gap (5-15) mmol/L BUN (7-18) mg/dL Creatinine (0.51-1.17) mg/dL Est Cr Clr Drug Dosing mL/min Estimated GFR (MDRD) mL/min Glucose (70-140) mg/dL POC Glucose 180 H (70-140) mg/dL Calcium (8.7-10.3) mg/dL Total Bilirubin (0.2-1.0) mg/dL AST (15-37) U/L ALT (14-63) U/L Alkaline Phosphatase (46-116) U/L Troponin I High Sens (0-51.000) pg/mL Total Protein (6.4-8.2) g/dL Albumin (3.40-5.00) g/dL Digoxin (0.30-2.00) ng/mL SARS CoV-2 RNA Rapid PHILIP Negative (NEGATIVE) Result Diagrams: 10/08/21 23:00 10/08/21 23:00 Sepsis Event Note - Evaluation Sepsis Screening Result: No Definite Risk - Focused Exam Vital Signs: Vital Signs Temp Temp Pulse Pulse Resp BP BP 10/09/21 12:28 148 H 120/63 10/09/21 12:27 148 H 10/09/21 11:00 97.3 F 148 H 20 113/60 10/09/21 07:00 96.3 F L 142 H 16 121/67 10/09/21 06:15 141 H 10/09/21 03:00 97.5 F 140 H 20 102/60 10/09/21 01:01 132 H 22 H 10/09/21 00:46 129 H 24 H BP Pulse Ox 10/09/21 12:28 10/09/21 12:27 10/09/21 11:00 98 10/09/21 07:00 96 10/09/21 06:15 10/09/21 03:00 96 10/09/21 01:01 103/51 L 95 10/09/21 00:46 103/60 94 L - Problem List Review Problem List Initiated/Reviewed/Updated: Yes - My Orders Last 24 Hours: My Active Orders 10/09/21 Breakfast ADA Diabetic [[place] [employer] Diet] [DIET] 10/09/21 12:30 Apixaban [Eliquis] 5 mg PO BID Diltiazem [Cardizem CD] 120 mg PO DAILY Metoprolol Tartrate [Lopressor] 50 mg PO BID 10/10/21 18:00 Digoxin [Lanoxin] 125 mcg PO DAILY@1800 - Plan Plan:: History summary Samanta is a 50-year-old female admitted from the ED last night when she came in due to with recurrence of atrial fibrillation with RVR. She noticed an abrupt onset of palpations at approximately 9 PM last night and felt like her previous episodes where her heart was racing. Last admission was on on September 12. She has had previous cardioversions in February of April of this past year. She is on current Eliquis 5 mg p.o. twice daily digoxin 125 mcg p.o. daily metoprolol tartrate ER 50 mg p.o. daily and Dital exam CD 100 mg p.o. daily. She recently had a sleep study which was recommended by her coil finisher and was diagnosed with sleep apnea and prescribed CPAP. She denies currently any chest pain. Any increased shortness of breath. No nausea or vomiting. No headache. EKG was ordered and completed upon arrival showing her rate was at 159 bpm and A. fib with RVR. O2 saturations are 96% on room air. BP was 102/43. She was hospitalized 07/01 for a-fib with RVR and spontaneously converted in less than 24 hours on a diltiazem drip. She was again hospitalized on 08/18 for 24 hours and again, converted with a diltiazem drip. ED course EKG A. fib, RVR 159 O2 saturations are 96% on room air. BP 102/43 Denied chest pain or shortness of breath, Electrolytes normal, digoxin subtherapeutic 10/09/21 00:40 Patient was given 125 mcg of digoxin IV. No rate in change. She was given 1 L of fluids and her blood pressures improved and was given 25 mg of Cardizem IV over 2 minutes. Her heart rate fluctuated between the 90s and 130s. Chest palpitations improved. Hospital course 10/09; arrival nurses informed me of a rhythm change around 2 this morning from A. fib to sinus tach and SVT up to 148. No shortness of breath no chest palpitations MAP greater than 70. Viewed EKG, appears P waves, narrow complex and regular. Valsalva maneuver such as squatting, bearing down and carotid massage without decrease in heart rate, adenosine x3 given with initial response however short-lived less than 1 minute and returned to SVT 140s Primary hospital problems --Tachycardia, SVT, refractory, --Paroxysmal atrial fibrillation, anticoagulation Eliquis, --JAMES, comorbid, needs CPAP --Anemia, Chronic conditions --T2DM, statin, metformin, Glargine, ASA, ADA diet --HLD, statin, fish oil --Hypertension, comorbid --Obesity, co-morbid --Acid Reflux, PPI FEN: Tolerating p.o. fluids, sodium potassium normal, ADA diet CODE STATUS: Full Code
[2021-10-09] MEDS ORDERED: Metoprolol Tartrate 5 MG/5 ML SDV IVPUSH ONE ×3 (16:28→16:55)
[2021-10-09] MEDS ORDERED: Magnesium Oxide 500 MG Tab PO ONE (19:01)
[2021-10-09] MEDS ORDERED: 50% Dextrose in Water 50 ML Syringe IVPUSH PRN (20:24)
[2021-10-09] MEDS ORDERED: Glucagon,Human Recombinant 1 MG Vial IM PRN (20:24)
[2021-10-09] MEDS ORDERED: Acetaminophen 500 MG Tab PO PRN (20:24)
[2021-10-09] MEDS ORDERED: Insulin Glargine,Hum.Rec.Anlog 100 UNIT/ML 3 ML Pen SUBCUT SCH (21:00)
[2021-10-09] MEDS ORDERED: metFORMIN 500 MG Tab.ER ONE (21:31)
[2021-10-09] MEDS: metFORMIN 500 MG Tab.ER PO SCH (21:42)
[2021-10-09] MEDS: Sodium Chloride 0.9% 250 ML IV ONE ×3 (23:20→23:55)
[2021-10-10] MEDS: Diltiazem 125 MG in Sodium Chloride 0.9% 100 ML IV SCH ×3 (00:10→04:30)
[2021-10-10] MEDS: Sodium Chloride 0.9% 250 ML IV ONE ×2 (00:50→02:00)
[2021-10-10] MEDS: Sodium Chloride 0.9% 1,000 ML IV SCH (01:13)
[2021-10-10] MEDS ORDERED: Sodium Chloride 0.9% 1,000 ML IV SCH (01:20)
[2021-10-10] MEDS: Diltiazem 25 MG/5 ML SDV IVPUSH ONE ×2 (03:25→04:30)
[2021-10-10] MEDS ORDERED: Diltiazem 25 MG/5 ML SDV ONE ×2 (03:26→03:27)
[2021-10-10] MEDS ORDERED: Diltiazem 25 MG/5 ML SDV IVPUSH ONE ×2 (07:28→08:34)
[2021-10-10] MEDS ORDERED: Pantoprazole 40 MG Tab.CR PO SCH (07:30)
[2021-10-10] MEDS ORDERED: Lutein/Minerals/Vitamins A, C & E Tab PO SCH (09:00)
[2021-10-10] MEDS ORDERED: Rosuvastatin 10 MG Tab PO SCH (09:00)
[2021-10-10] MEDS ORDERED: Cyanocobalamin (Vitamin B12) 500 MCG Tab PO SCH (09:00)
[2021-10-10] MEDS: Diltiazem 120 MG Cap.CD PO SCH (09:15)
[2021-10-10] MEDS: Metoprolol Tartrate 50 MG Tab PO SCH (09:15)
[2021-10-10] MEDS: metFORMIN 500 MG Tab.ER PO SCH (09:15)
[2021-10-10] MEDS: Apixaban 5 MG Tab PO SCH (09:16)
[2021-10-10] MEDS: Insulin Aspart 100 Units/ML 3 ML Pen SUBCUT SCH ×2 (09:17→12:31)
--- NOTE | 2021-10-10 10:42 | PCM.DCSUM1 ---
Discharge Summary - Hospital Course Diagnosis: Stroke: No - Discharge Data Discharge Date: 10/10/21 Discharge Disposition: DC/Tfer to Acute Hospital 02 Condition: Good - Referral to Home Health Primary Care Physician: Jayde Beltrán MD - Discharge Plan *PRESCRIPTION DRUG MONITORING PROGRAM REVIEWED*: Not Applicable *COPY OF PRESCRIPTION DRUG MONITORING REPORT IN PATIENT FANTA: Not Applicable Home Medications: Home Meds Aspirin [Halfprin] 1 tab PO DAILY 07/03/16 [History] Omeprazole 40 mg PO ACBREAKFAST 07/03/16 [History] metFORMIN [Glucophage XR] 1,000 mg PO BIDMEALS 07/03/16 [History] Acetaminophen 500 mg PO Q6H PRN 07/01/21 [History] Apixaban [Eliquis] 5 mg PO BID 07/01/21 [History] Beta-Carotene(A) w/C & E/Min [Prosight] 1 tab PO DAILY 07/01/21 [History] Cyanocobalamin (Vitamin B12) [Vitamin B12] 500 mcg PO DAILY 07/01/21 [History] Fenofibrate 160 mg PO BEDTIME 07/01/21 [History] Insulin Aspart [NovoLOG] 15 unit SQ TIDMEALS 07/01/21 [History] Metoprolol Tartrate 50 mg PO BID 07/01/21 [History] Multivitamin [Multiple Vitamins] 1 each PO DAILY 07/01/21 [History] Rosuvastatin Calcium 40 mg PO DAILY 07/01/21 [History] Insulin Glargine,Hum.Rec.Anlog [Basaglar Kwikpen U-100] 45 - 48 unit SQ BEDTIME 08/18/21 [History] Diltiazem [Cardizem CD] 120 mg PO DAILY 30 Days #30 cap.er 08/19/21 [Rx] Icosapent Ethyl [Vascepa] 2 gm PO BIDMEALS 09/12/21 [History] Digoxin [Digox] 125 mcg PO DAILY 10/09/21 [History] Insulin Lispro [Humalog Kwikpen U-100] 15 unit SQ TIDMEALS 10/09/21 [History] - Discharge Summary/Plan Comment DC Time >30 min.: Yes Total # of Minutes for Discharge Time: 62 min Discharge Summary/Plan Comment: Final DX: --atrial flutter with RVR --JAMES, comorbid, needs CPAP --Anemia, Chronic conditions --T2DM, statin, metformin, Glargine, ASA, ADA diet --HLD, statin, fish oil --Hypertension, comorbid --Obesity, co-morbid --Acid Reflux, PPI History summary Samanta is a 50-year-old female admitted from the ED last night when she came in due to with recurrence of atrial fibrillation with RVR. She noticed an abrupt onset of palpations at approximately 9 PM last night and felt like her previous episodes where her heart was racing. Last admission was on on September 12. She has had previous cardioversions in February of April of this past year. She is on current Eliquis 5 mg p.o. twice daily digoxin 125 mcg p.o. daily metoprolol tart rate ER 50 mg p.o. daily and Dital exam CD 100 mg p.o. daily. 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 She denies currently any chest pain. Any increased shortness of breath. No nausea or vomiting. No headache. EKG was ordered and completed upon arrival showing her rate was at 159 bpm and A. fib with RVR. O2 saturations are 96% on room air. BP was 102/43. She was hospitalized 07/01 for a-fib with RVR and spontaneously converted in less than 24 hours on a diltiazem drip. She was again hospitalized on 08/18 for 24 hours and again, converted with a diltiazem drip. ED course EKG A. fib, RVR 159 O2 saturations are 96% on room air. BP 102/43 Denied chest pain or shortness of breath, Electrolytes normal, digoxin subtherapeutic 10/09/21 00:40 Patient was given 125 mcg of digoxin IV. No rate in change. She was given 1 L of fluids and her blood pressures improved and was given 25 mg of Cardizem IV over 2 minutes. Her heart rate fluctuated between the 90s and 130s. Chest palpitations improved. Hospital course 10/09; arrival nurses informed me of a rhythm change around 2 this morning from A. fib to sinus tach and SVT up to 148. No shortness of breath no chest palpitations MAP greater than 70. Viewed EKG, appears P waves, narrow complex and regular. Valsalva maneuver such as squatting, bearing down and carotid massage without decrease in heart rate, adenosine x3 given with initial response however short-lived less than 1 minute and returned to SVT 140s 10/10; multiple calls throughout the night with ongoing SVT/atrial flutter with RVR not responding to diltiazem drip. Hypotension did respond to saline fluids. Patient seems to be tolerating atrial flutter without chest pain however she is fatiguing. No shortness of breath, no wheezing however getting fatigued. Spoke with cardiology at [facility] call regarding refractory atrial flutter spoke to medicine department regarding starting amiodarone, cardiology did agree for loading dose of amiodarone however patient did not respond therefore patient was transferred to tertiary care acute care [facility] for cardiology evaluation as I feel she likely will require cardioversion. - General Info Date of Service: 10/10/21 Functional Status: Reports: Pain Controlled, Tolerating Diet, Urinating. Denies: Ambulating, New Symptoms - Review of Systems General: Reports: Fatigue HEENT: Reports: No Symptoms Pulmonary: Denies: Shortness of Breath, Pleuritic Chest Pain, Cough, Wheezing Cardiovascular: Denies: Chest Pain, Palpitations, Lightheadedness Gastrointestinal: Reports: No Symptoms Genitourinary: Reports: No Symptoms Musculoskeletal: Reports: No Symptoms Skin: Reports: No Symptoms Neurological: Reports: No Symptoms Psychiatric: Reports: No Symptoms - Patient Data Vitals - Most Recent: Last Vital Signs Temp 97.0 F 10/10/21 07:01 Pulse 147 H 10/10/21 09:15 Resp 24 H 10/10/21 07:39 BP 121/63 10/10/21 09:15 Pulse Ox 96 10/10/21 07:01 Weight - Most Recent: 230 lb I&O - Last 24 hours: Intake & Output 10/09/21 10/10/21 10/10/21 22:59 06:59 14:59 Intake Total 2500 2500 Output Total 900 Balance 2500 1600 Lab Results - Last 24 hrs: Laboratory Results - last 24 hr 10/09/21 10/09/21 10/10/21 Range/Units 12:54 17:51 07:57 POC Glucose 167 H 172 H (70-140) mg/dL Magnesium 1.4 L (1.8-2.4) mg/dL TSH, Ultra Sensitive 1.102 (0.340-4.820) uIU/mL Med Orders - Current: Current Medications Acetaminophen (Acetaminophen 325 Mg Tab) 650 mg PO Q4H PRN PRN Reason: Pain (Mild 1-3)/fever Last Admin: 10/09/21 18:26 Dose: 650 mg Documented by: Acetaminophen (Acetaminophen 500 Mg Tab) 500 mg PO Q6H PRN PRN Reason: Pain Last Admin: 10/10/21 09:40 Dose: 500 mg Documented by: Apixaban (Apixaban 5 Mg Tab) 5 mg PO BID [facility] Last Admin: 10/10/21 09:16 Dose: 5 mg Documented by: Cyanocobalamin (Cyanocobalamin (Vitamin B12) 500 Mcg Tab) 500 mcg PO DAILY [facility] Last Admin: 10/10/21 09:16 Dose: 500 mcg Documented by: Dextrose/Water (50% Dextrose In Water 50 Ml Syringe) 50 ml IVPUSH ASDIRECTED PRN PRN Reason: Hypoglycemia Digoxin (Digoxin 125 Mcg Tab) 125 mcg PO DAILY@1800 [facility] Diltiazem HCl (Diltiazem 120 Mg Cap.Cd) 120 mg PO DAILY [facility] Last Admin: 10/10/21 09:15 Dose: 120 mg Documented by: Glucagon (Glucagon,Human Recombinant 1 Mg Vial) 1 mg IM ASDIRECTED PRN PRN Reason: Hypoglycemia Diltiazem HCl 125 mg/ Sodium (Chloride) 125 mls @ 5 mls/hr IV ASDIRECTED [facility]; Protocol Last Admin: 10/10/21 04:30 Dose: 15 mls/hr Documented by: Sodium Chloride (Normal Saline) 1,000 mls @ 200 mls/hr IV ASDIRECTED [facility] Last Admin: 10/10/21 04:30 Dose: 200 mls/hr Documented by: Insulin Aspart (Insulin Aspart 100 Units/Ml 3 Ml Pen) 15 unit SUBCUT TIDMEALS [facility] Last Admin: 10/10/21 09:17 Dose: Not Given Documented by: Lorazepam (Lorazepam 2 Mg/Ml Sdv) 1 mg IV Q6H PRN PRN Reason: Nausea/Vomiting Last Admin: 10/09/21 21:42 Dose: 1 mg Documented by: Metformin HCl (Metformin 500 Mg Tab.Er) 1,000 mg PO BIDMEALS [facility] Last Admin: 10/10/21 09:15 Dose: 1,000 mg Documented by: Metoprolol Tartrate (Metoprolol Tartrate 50 Mg Tab) 50 mg PO BID [facility] Last Admin: 10/10/21 09:15 Dose: 50 mg Documented by: Multivitamins/Minerals (Lutein/Minerals/Vitamins A, C & E Tab) 1 each PO DAILY [facility] Last Admin: 10/10/21 09:16 Dose: 1 each Documented by: Ondansetron HCl (Ondansetron 4 Mg/2 Ml Sdv) 4 mg IV Q4H PRN PRN Reason: Nausea/Vomiting Rosuvastatin Calcium (Rosuvastatin 10 Mg Tab) 40 mg PO DAILY [facility] Last Admin: 10/10/21 09:15 Dose: 40 mg Documented by: Sodium Chloride (Sodium Chloride 0.9% 10 Ml Syringe) 10 ml FLUSH Q8HR PRN PRN Reason: keep vein open Last Admin: 10/09/21 11:54 Dose: 10 ml Documented by: Temazepam (Temazepam 15 Mg Cap) 15 mg PO BEDTIME PRN PRN Reason: Sleep Discontinued Medications Adenosine (Adenosine 12 Mg/4 Ml Sdv) 6 mg IVPUSH NOW ONE Stop: 10/09/21 11:46 Last Admin: 10/09/21 11:46 Dose: 6 mg Documented by: Adenosine (Adenosine 12 Mg/4 Ml Sdv) 12 mg IVPUSH NOW ONE Stop: 10/09/21 11:55 Last Admin: 10/09/21 11:54 Dose: 12 mg Documented by: Adenosine (Adenosine 12 Mg/4 Ml Sdv) 12 mg IVPUSH NOW ONE Stop: 10/09/21 12:10 Last Admin: 10/09/21 12:09 Dose: 12 mg Documented by: Digoxin (Digoxin 500 Mcg/2 Ml Amp) 125 mcg IVPUSH ONETIME ONE Stop: 10/08/21 23:31 Last Admin: 10/08/21 23:37 Dose: 125 mcg Documented by: Digoxin (Digoxin 500 Mcg/2 Ml Amp) 125 mcg IVPUSH ONETIME ONE Stop: 10/09/21 05:31 Last Admin: 10/09/21 06:15 Dose: 125 mcg Documented by: Digoxin (Digoxin 125 Mcg Tab) 125 mcg PO DAILY [facility] Digoxin (Digoxin 125 Mcg Tab) 125 mcg PO ONETIME ONE Stop: 10/09/21 12:31 Last Admin: 10/09/21 12:27 Dose: 125 mcg Documented by: Diltiazem HCl (Diltiazem 25 Mg/5 Ml Sdv) 20 mg IVPUSH ONETIME ONE Stop: 10/08/21 23:15 Last Admin: 10/09/21 00:12 Dose: Not Given Documented by: Diltiazem HCl (Diltiazem 25 Mg/5 Ml Sdv) 25 mg IVPUSH ONETIME ONE Stop: 10/09/21 00:03 Last Admin: 10/09/21 00:08 Dose: 25 mg Documented by: Diltiazem HCl (Diltiazem 25 Mg/5 Ml Sdv) 25 mg IVPUSH ONETIME ONE Stop: 10/09/21 20:06 Last Admin: 10/09/21 20:25 Dose: 25 mg Documented by: Diltiazem HCl (Diltiazem 25 Mg/5 Ml Sdv) 25 mg IVPUSH ONETIME ONE Stop: 10/09/21 22:54 Last Admin: 10/09/21 23:55 Dose: 25 mg Documented by: Diltiazem HCl (Diltiazem 25 Mg/5 Ml Sdv) Confirm Administered Dose 125 mg .ROUTE .STK-MED ONE Stop: 10/10/21 03:27 Last Admin: 10/10/21 03:31 Dose: Not Given Documented by: Diltiazem HCl (Diltiazem 25 Mg/5 Ml Sdv) Confirm Administered Dose 25 mg .ROUTE .STK-MED ONE Stop: 10/10/21 03:28 Last Admin: 10/10/21 03:32 Dose: Not Given Documented by: Diltiazem HCl (Diltiazem 25 Mg/5 Ml Sdv) 5 mg IVPUSH ONETIME ONE Stop: 10/10/21 03:21 Last Admin: 10/10/21 04:30 Dose: 5 mg Documented by: Diltiazem HCl (Diltiazem 25 Mg/5 Ml Sdv) 5 mg IVPUSH ONETIME ONE Stop: 10/10/21 07:29 Last Admin: 10/10/21 07:36 Dose: 5 mg Documented by: Diltiazem HCl (Diltiazem 25 Mg/5 Ml Sdv) 5 mg IVPUSH ONETIME ONE Stop: 10/10/21 08:35 Last Admin: 10/10/21 08:53 Dose: 5 mg Documented by: Sodium Chloride (Normal Saline) Confirm Administered Dose 1,000 mls @ as directed .ROUTE .STK-MED ONE Stop: 10/08/21 23:20 Last Admin: 10/08/21 23:26 Dose: Not Given Documented by: Sodium Chloride (Normal Saline) 1,000 mls @ 999 mls/hr IV .BOLUS ONE Stop: 10/09/21 00:18 Last Admin: 10/08/21 23:21 Dose: 999 mls/hr Documented by: Sodium Chloride (Normal Saline) 1,000 mls @ 999 mls/hr IV .BOLUS ONE Stop: 10/09/21 01:21 Last Admin: 10/09/21 00:24 Dose: 999 mls/hr Documented by: Sodium Chloride (Normal Saline) 1,000 mls @ 125 mls/hr IV ASDIRECTED [facility] Last Admin: 10/09/21 14:03 Dose: 125 mls/hr Documented by: Sodium Chloride (Normal Saline) 1,000 mls @ 75 mls/hr IV ASDIRECTED [facility] Last Infusion: 10/10/21 01:20 Dose: 200 mls/hr Documented by: Sodium Chloride (Normal Saline) 250 mls @ 999 mls/hr IV .BOLUS ONE Stop: 10/09/21 23:30 Last Admin: 10/10/21 02:00 Dose: 999 mls/hr Documented by: Insulin Glargine (Insulin Glargine,Hum.Rec.Anlog 100 Unit/Ml 3 Ml Pen) 40 unit SUBCUT BEDTIME [facility] Magnesium Oxide (Magnesium Oxide 500 Mg Tab) 500 mg PO NOW ONE Stop: 10/09/21 19:02 Last Admin: 10/09/21 20:38 Dose: 500 mg Documented by: Metformin HCl (Metformin 500 Mg Tab.Er) Confirm Administered Dose 1,000 mg . ROUTE .STK-MED ONE Stop: 10/09/21 21:32 Last Admin: 10/09/21 21:42 Dose: Not Given Documented by: Metoprolol Tartrate (Metoprolol Tartrate 5 Mg/5 Ml Sdv) 5 mg IVPUSH ONETIME ONE Stop: 10/09/21 16:29 Last Admin: 10/09/21 16:37 Dose: 5 mg Documented by: Metoprolol Tartrate (Metoprolol Tartrate 5 Mg/5 Ml Sdv) 5 mg IVPUSH ONETIME ONE Stop: 10/09/21 16:44 Last Admin: 10/09/21 16:51 Dose: 5 mg Documented by: Metoprolol Tartrate (Metoprolol Tartrate 5 Mg/5 Ml Sdv) 5 mg IVPUSH ONETIME ONE Stop: 10/09/21 16:56 Last Admin: 10/09/21 17:02 Dose: 5 mg Documented by: - Exam Quality Assessment: Denies: Supplemental Oxygen General: Reports: Alert, Oriented, Cooperative. Denies: Mild Distress Neck: Reports: No JVD Lungs: Reports: Clear to Auscultation, Normal Respiratory Effort Cardiovascular: Reports: Tachycardia GI/Abdominal Exam: Normal Bowel Sounds, Soft, Non-Tender Back Exam: Denies: CVA Tenderness (L) Extremities: No: Pedal Edema Skin: Reports: Warm, Dry, Intact Neurological: Reports: No New Focal Deficit Psy/Mental Status: Reports: Alert, Normal Affect, Normal Mood #1 Interpretation EKG Date: 10/10/21 Time: 09:54 Rhythm: A-Flutter P-Wave: Present QRS: Normal ST-T: Depressed QT: Normal Comparison: Change From Previous EKG #2 Interpretation EKG Date: 10/10/21 Time: 10:28 Rhythm: A-Flutter [place]: Normal P-Wave: Present QRS: Normal ST-T: Normal QT: Normal Comparison: Change From Previous EKG
[2021-10-10 11:06] VITALS: BP 117/59; PULSE 147
[2021-10-10] MEDS ORDERED: Amiodarone/Dextrose,Iso-Osmotic 150 MG/100 ML Premix Bag IV ONE (11:17)
[2021-10-10] MEDS ORDERED: Amiodarone In Dextrose,Iso-Osm 360 MG in Premix Bag 1 BAG IV SCH ×2 (11:30)
[2021-10-10] MEDS ORDERED: ALPRAZolam 0.25 MG Tab PO ONE (15:17)
[2021-10-10] MEDS ORDERED: Digoxin 125 MCG Tab PO SCH (18:00)
== END 2021-10-10 15:40 | DRG 201 ==
LOC: KA.ED 22:20 → KA.MS 10-09 01:07 → OBSVTOIN 10-10 09:30
PROVIDERS: ADMIT Nurse Practitioner Family; ATTEND Nurse Practitioner Family
DX: I48.0 Paroxysmal atrial fibrillation (principal); E66.9 Obesity, unspecified; I47.1 Supraventricular tachycardia; Z20.822 Contact with and (suspected) exposure to COVID-19; E78.00 Pure hypercholesterolemia, unspecified; H54.7 Unspecified visual loss; I10 Essential (primary) hypertension; K21.9 Gastro-esophageal reflux disease without esophagitis; M54.9 Dorsalgia, unspecified; G89.29 Other chronic pain; D64.9 Anemia, unspecified; G47.30 Sleep apnea, unspecified; G47.33 Obstructive sleep apnea (adult) (pediatric); E11.9 Type 2 diabetes mellitus without complications; E78.5 Hyperlipidemia, unspecified; Z79.01 Long term (current) use of anticoagulants; Z68.41 Body mass index [BMI] 40.0-44.9, adult; Z88.5 Allergy status to narcotic agent; Z88.8 Allergy status to other drugs, medicaments and biological substances; Z79.82 Long term (current) use of aspirin; Z79.4 Long term (current) use of insulin; Z79.899 Other long term (current) drug therapy; Z90.49 Acquired absence of other specified parts of digestive tract
CPT/HCPCS: 36415; 80053; 80162; 82947; 83735; 84443; 84484; 85025; 93005; 96374; 96375; 96376; 99285-25; A9270-GY; G0378; J0153; J0282; J1160; J1815-GY; J2060; J3490; J7030; U0002

== ENCOUNTER 2021-12-24 19:47 | Emergency (ER) | payer BC, OTHER ==
[2021-12-24] MEDS ORDERED: Sodium Chloride 0.9% 10 ML Syringe FLUSH PRN (20:15)
[2021-12-24 20:47] LABS: ANION GAP 17.6 mmol/L (5-15); CHLORIDE,CL 101 mmol/L (98-107); SODIUM,NA 139 mmol/L (136-145)
[2021-12-24] MEDS ORDERED: Diltiazem 25 MG/5 ML SDV IVPUSH ONE (20:52)
[2021-12-24] MEDS ORDERED: Sodium Chloride 0.9% 1,000 ML IV ONE (20:52)
[2021-12-24] MEDS ORDERED: Sodium Chloride 0.9% 1,000 ML ONE (20:53)
[2021-12-24] MEDS ORDERED: Diltiazem 125 MG in Sodium Chloride 0.9% 100 ML IV SCH (21:00)
[2021-12-24] MEDS ORDERED: LORazepam 2 MG/ML SDV IVPUSH ONE (22:10)
[2021-12-24] MEDS ORDERED: LORazepam 2 MG/ML SDV ONE (22:11)
[2021-12-24 23:50] VITALS: BP 122/70; PULSE 140
== END 2021-12-24 22:15 ==
LOC: KA.ED 19:47
DX: I48.91 Unspecified atrial fibrillation (principal); E78.00 Pure hypercholesterolemia, unspecified; I10 Essential (primary) hypertension; K21.9 Gastro-esophageal reflux disease without esophagitis; E11.9 Type 2 diabetes mellitus without complications; E66.9 Obesity, unspecified; Z68.41 Body mass index [BMI] 40.0-44.9, adult; Z88.5 Allergy status to narcotic agent; Z88.8 Allergy status to other drugs, medicaments and biological substances; Z79.82 Long term (current) use of aspirin; Z79.01 Long term (current) use of anticoagulants; Z79.4 Long term (current) use of insulin; Z79.899 Other long term (current) drug therapy
CPT/HCPCS: 36415; 80053; 84484; 85025; 93005; 93010; 96365; 96375; 96376; 99285; 99285-25; J2060; J3490; J7030